=== PATIENT | male | born 1955 | race African-American/Black ===

== ENCOUNTER 2020-01-28 22:39 | Inpatient (IN) ==
[2020-01-28] MEDS ORDERED: ALBUT/IPRATROP 3MG/0.5MG NEB 3 ML VIAL NEB STA (22:44)
--- NOTE | 2020-01-28 23:05 | Emergency Department Note ---
History of Present Illness General Chief complaint: Shortness of Breath/Dyspnea History of Present Illness Maximum Pain Intensity: 0 This 64 yo presents to the ER complaining of shortness of breath Location: Chest Quality: Hard to breathe Severity: Moderate Duration: Tonight Timing: Tonight Context: Patient was concerned and summoned the guards Modifying factors: better with rest; worse with activity Patient does smoke. He is a diabetic. No prior history of blood clot, CHF or heart attack. Patient denies increasing leg pain or swelling, chest pain, fever, chills, flulike illness, abdominal pain, vomiting, diarrhea. Patient's blood sugar was low with the present and EMS gave glucose and dextrose. Home Medications Home Medications Medication Instructions Recorded Confirmed Type Humulin 70/30 U-100 Insulin 25 unit SUBCUT QPM 03/30/19 01/28/20 History Humulin 70/30 U-100 Insulin 34 unit SUBCUT QAM 03/30/19 01/28/20 History Humulin R Regular U-100 Insuln 1 sliding scale dose SUBCUT 03/30/19 01/28/20 History USEASDIRECTD aspirin 325 mg PO DAILY 03/30/19 01/28/20 History furosemide 80 mg PO DAILY 03/30/19 01/28/20 History losartan 100 mg PO DAILY 03/30/19 01/28/20 History metformin 1,000 mg PO BID 03/30/19 01/28/20 History metoprolol tartrate 100 mg PO BID 03/30/19 01/28/20 History potassium chloride 10 meq PO DAILY 03/30/19 01/28/20 History rosuvastatin 40 mg PO DAILY 03/30/19 01/28/20 History Allergies Allergy/AdvReac Type Severity Reaction Status Date / Time No Known Allergies Allergy Verified 01/28/20 23:23 Past Med/Surg History Medical History Diabetes mellitus, type 2 IDDM Hyperlipidemia Hypertension Obesity Surgical History Brain aneurysm REPAIR ()= NO FURTHER DETAILS Social History Current Living Situation: Other Current Living Situation Comment: [facility] Feels Safe at Home: Yes Smoking Status: Never smoker Cigarettes Per Day: 1.5 PPD X 45 YEARS ; Hx Substance Use: Yes ("20 YEARS AGO" PER PATIENT QUESTIONNAIRE= NO FURTHER DETAILS) Review of Systems A total of 10 systems reviewed and were otherwise negative Physical Exam Vital Signs Vital Signs - 24 hr 01/28/20 22:47 01/28/20 23:07 01/28/20 23:13 Temperature 36.8 C Temperature Source Oral Pulse Rate 58 L Pulse Rate [Apical] 57 L Pulse Rhythm [Apical] Pulse Strength [Apical] Respiratory Rate 18 24 Respiratory Effort / Characteristics Non-Labored Spontaneous Respiratory Depth Blood Pressure 135/94 Blood Pressure [Right Arm] Blood Pressure Mean 107 Blood Pressure Mean [Right Arm] Blood Pressure Position [Right Arm] Pulse Oximetry 88 L 95 92 Oxygen Delivery Method Room Air Nasal Cannula Room Air Nasal Cannula Oxygen Flow Rate 0 3 Sepsis Recent Fever Within 48 Hours No Sepsis New/Unexplained Change in Mental Status No Sepsis Action Taken by Nursing No Action Required Oxygen Flow Rate - Titration 3 Pulse Oximetry Post Tiitration 96 01/28/20 23:36 01/29/20 01:00 Temperature Temperature Source Pulse Rate Pulse Rate [Apical] 58 L 63 Pulse Rhythm [Apical] Regular Pulse Strength [Apical] Normal Respiratory Rate 22 18 Respiratory Effort / Characteristics Non-Labored Spontaneous Respiratory Depth Normal Blood Pressure Blood Pressure [Right Arm] 148/106 H 156/114 H Blood Pressure Mean Blood Pressure Mean [Right Arm] 120 128 Blood Pressure Position [Right Arm] Sitting Pulse Oximetry 97 96 Oxygen Delivery Method Nasal Cannula Nasal Cannula Oxygen Flow Rate 2 3 Sepsis Recent Fever Within 48 Hours Sepsis New/Unexplained Change in Mental Status Sepsis Action Taken by Nursing Oxygen Flow Rate - Titration Pulse Oximetry Post Tiitration VITALS: Vitals are noted on the nurse's note and reviewed by myself. Vital signs hypoxic at 88% on room air. GENERAL: -[place] male in [facility] having a hard time speaking in full sentences, well-nourished. SKIN: The skin was without rashes, erythema, or bruising. There is no tenting of the skin. Capillary reflex less than 2 seconds. HEAD: Normocephalic atraumatic. EARS: External auditory canals clear, tympanic membranes pearly duenas without erythema or effusion bilaterally. EYES: Pupils equal round and reactive to light and accommodation. Conjunctivae without injection, sclerae without icterus. Extraocular movements intact. NOSE: Patent, turbinates without inflammation or discharge. MOUTH: Mucous membranes moist. Pharynx without erythema or exudate. Uvula midline. Airway patent. Tongue does not deviate. NECK: Supple without nuchal rigidity. No lymphadenopathy. No thyromegaly. Cervical spine is nontender. No JVD. HEART: Regular rate and rhythm LUNGS: Mild diffuse end expiratory wheeze. No retractions or accessory muscle use. ABDOMEN: Positive bowel sounds x 4. Normal tympanic percussion. Soft, nontender, without masses or organomegaly. Govea sign negative. No guarding or rebound tenderness. No CVA tenderness MUSCULOSKELETAL: No muscle atrophy, erythema, noted. +2 pitting edema bilaterally up to the mid tib-fib. NEURO: Patient was alert and oriented to person place and time. Normal sensation to light and sharp touch. No focal neurological deficits. Course Administered Medications Heparin Sodium/Dextrose (Heparin Sodium/Dextrose) 25,000 units in 500 mls @ 34 mls/hr IV [id number]; Protocol Stop: 02/27/20 23:44 Last Admin: 01/29/20 00:03 Dose: 1,700 units/hr, 34 mls/hr Documented by: [id number] Cosigned by: [id number] Ioversol (Optiray 320 125ml) 125 ml IV ONCE PRN PRN Reason: Interaction Checking Stop: 02/01/20 23:33 Last Admin: 01/28/20 23:34 Dose: 118 ml Documented by: [id number] Discontinued Medications Albuterol (Duoneb) 3 ml NEB NOW STA Stop: 01/28/20 22:45 Last Admin: 01/28/20 23:04 Dose: 3 ml Documented by: [id number] Dextrose (Dextrose 50%) Confirm Administered Dose 50 ml IV .STK-MED ONE Stop: 01/29/20 01:10 Last Admin: 01/29/20 01:17 Dose: 50 ml Documented by: [id number] Dextrose (Dextrose 50%) Confirm Administered Dose 50 ml IV .STK-MED ONE Stop: 01/29/20 01:12 Last Admin: 01/29/20 01:17 Dose: Not Given Documented by: [id number] Heparin Sodium (Porcine) (Heparin Iv Bolus) Confirm Administered Dose 10,000 units .ROUTE .STK-MED ONE Stop: 01/29/20 00:00 Last Admin: 01/29/20 00:03 Dose: 7,000 units Documented by: [id number] Cosigned by: [id number] Heparin Sodium/Dextrose () 1 ea IV NOW STA; Protocol Stop: 01/28/20 23:50 Last Admin: 01/29/20 00:08 Dose: Not Given Documented by: [id number] Sodium Chloride (Nss 1000ml) 500 mls @ 999 mls/hr IV .Q31M ONE Stop: 01/28/20 23:54 Last Admin: 01/28/20 23:51 Dose: Not Given Documented by: [id number] Critical Care Time Critical Care Time: Yes Total Critical Care Time: 35 I have personally spent 35 minutes of critical care time in the direct management of this patient. This includes bedside care, interpretation of diagnostic studies, and testing, discussion with consultants, patient, and family members, and other required patient management activities. This 35 minutes is in excess of all separately billable procedures. Medical Decision Making Medical Records Attestation: I reviewed the patient's medical records. Home Medications Current Medication List: was personally reviewed by me Laboratory Data Attestation: I reviewed the patient's lab results. Result diagrams: 01/28/20 23:00 01/28/20 23:15 Lab Results 01/28/20 01/28/20 01/28/20 Range/Units 22:44 23:00 23:00 WBC 6.46 (4.8-10.8) K/uL RBC 6.56 H (4.7-6.1) M/uL Hgb 14.1 (14.0-18.0) g/dL POC Hgb (14.0-18.0) g/dl Hct 46.2 (42-52) % POC Hct (42-52) % MCV 70.4 L (80-100) fL MCH 21.5 L (25-34) pg MCHC 30.5 L (32-36) g/dL RDW Std Deviation 42.5 (36.4-46.3) fL RDW Coeff of Malina 17.5 H (11.5-14.5) % Plt Count 217 (130-400) K/uL MPV 10.0 (7.4-10.4) fL Immature Gran % (Auto) 0.2 % Neut % (Auto) 68.1 % Lymph % (Auto) 24.8 % [place] % (Auto) 4.8 % Eos % (Auto) 1.5 % Baso % (Auto) 0.6 % Immature Gran # (Auto) 0.01 (0.00-0.02) K/uL Neut # (Auto) 4.40 (1.4-6.5) K/uL Lymph # (Auto) 1.60 (1.2-3.4) K/uL [place] # (Auto) 0.31 (0.11-0.59) K/uL Eos # (Auto) 0.10 (0-0.5) K/uL Baso # (Auto) 0.04 (0-0.2) K/uL Hypochromasia Present PT Cancelled INR Cancelled APTT Cancelled PTT Ratio Cancelled ABG pH (7.35-7.45) ABG pCO2 (35-46) mmHg ABG pO2 (80-95) mmHg ABG HCO3 (19-24) mmol/L ABG O2 Saturation (90-95) % ABG Base Excess (-9-1.8) mEq/L Kian Test (Pos) Barometric Pressure mm/Hg Oxygen Given POC Sodium (135-144) mmol/L Sodium (136-145) mmol/L POC Potassium (3.3-5.0) mmol/L Potassium (3.5-5.1) mmol/L POC Chloride (101-112) mmol/L Chloride (98-107) mmol/L Carbon Dioxide (21-32) mmol/L POC Total CO2 (24-31) mEq/l Anion Gap (3-11) POC Anion Gap (16-25) mmol/L POC BUN (7-18) mg/dl BUN (7-18) mg/dl Creatinine (0.6-1.4) mg/dl POC Creatinine (0.6-1.3) mg/dl Est Cr Clr Drug Dosing ml/min Est GFR ( Amer) Est GFR (Non-Af Amer) BUN/Creatinine Ratio (10-20) Glucose (70-99) mg/dl POC Glucose 73 (70-99) mg/dl POC Glucose (other) (70-99) mg/dl Calcium (8.5-10.1) mg/dl POC Ioniz Calcium Kvng (1.12-1.32) mmol/l Magnesium (1.8-2.4) mg/dl Total Bilirubin (0.2-1) mg/dl AST (15-37) U/L ALT (12-78) U/L Alkaline Phosphatase (45-117) U/L POC Troponin I (0-0.045) ng/ml Troponin I (0-0.045) ng/ml Total Protein (6.4-8.2) gm/dl Albumin (3.4-5.0) gm/dl Globulin (2.5-4.0) gm/dl Albumin/Globulin Ratio (0.9-2) Urine Color Urine Appearance (Clear) Urine pH (4.5-7.5) Ur Specific [place] (1.000-1.030) Urine Protein (Negative) Urine Glucose (UA) (Negative) Urine Ketones (Negative) Urine Blood (Negative) Urine Nitrite (Negative) Urine Bilirubin (Negative) Urine Urobilinogen (Negative) Ur Leukocyte Esterase (Negative) Urine WBC (Auto) (0-5) /hpf Urine RBC (Auto) (0-4) /hpf U Hyaline Cast (Auto) (0-5) /lpf U Epithel Cells (Auto) (0-5) /lpf Urine Bacteria (Auto) (Negative) 01/28/20 01/28/20 01/28/20 Range/Units 23:14 23:14 23:14 WBC (4.8-10.8) K/uL RBC (4.7-6.1) M/uL Hgb (14.0-18.0) g/dL POC Hgb 17.0 (14.0-18.0) g/dl Hct (42-52) % POC Hct 50 (42-52) % MCV (80-100) fL MCH (25-34) pg MCHC (32-36) g/dL RDW Std Deviation (36.4-46.3) fL RDW Coeff of Malina (11.5-14.5) % Plt Count (130-400) K/uL MPV (7.4-10.4) fL Immature Gran % (Auto) % Neut % (Auto) % Lymph % (Auto) % [place] % (Auto) % Eos % (Auto) % Baso % (Auto) % Immature Gran # (Auto) (0.00-0.02) K/uL Neut # (Auto) (1.4-6.5) K/uL Lymph # (Auto) (1.2-3.4) K/uL [place] # (Auto) (0.11-0.59) K/uL Eos # (Auto) (0-0.5) K/uL Baso # (Auto) (0-0.2) K/uL Hypochromasia PT INR APTT PTT Ratio ABG pH 7.41 (7.35-7.45) ABG pCO2 39 (35-46) mmHg ABG pO2 220 H (80-95) mmHg ABG HCO3 24 (19-24) mmol/L ABG O2 Saturation 99.6 H (90-95) % ABG Base Excess -0.6 (-9-1.8) mEq/L Kian Test POS (Pos) Barometric Pressure 737.1 mm/Hg Oxygen Given ROOM AIR POC Sodium 141 (135-144) mmol/L Sodium (136-145) mmol/L POC Potassium 3.8 (3.3-5.0) mmol/L Potassium (3.5-5.1) mmol/L POC Chloride 112 (101-112) mmol/L Chloride (98-107) mmol/L Carbon Dioxide (21-32) mmol/L POC Total CO2 21 L (24-31) mEq/l Anion Gap (3-11) POC Anion Gap 13.0 L (16-25) mmol/L POC BUN 24 H (7-18) mg/dl BUN (7-18) mg/dl Creatinine (0.6-1.4) mg/dl POC Creatinine 1.7 H (0.6-1.3) mg/dl Est Cr Clr Drug Dosing ml/min Est GFR ( Amer) Est GFR (Non-Af Amer) BUN/Creatinine Ratio (10-20) Glucose (70-99) mg/dl POC Glucose (70-99) mg/dl POC Glucose (other) 110 H (70-99) mg/dl Calcium (8.5-10.1) mg/dl POC Ioniz Calcium Kvng 0.87 L (1.12-1.32) mmol/l Magnesium (1.8-2.4) mg/dl Total Bilirubin (0.2-1) mg/dl AST (15-37) U/L ALT (12-78) U/L Alkaline Phosphatase (45-117) U/L POC Troponin I 0.24 H (0-0.045) ng/ml Troponin I (0-0.045) ng/ml Total Protein (6.4-8.2) gm/dl Albumin (3.4-5.0) gm/dl Globulin (2.5-4.0) gm/dl Albumin/Globulin Ratio (0.9-2) Urine Color Urine Appearance (Clear) Urine pH (4.5-7.5) Ur Specific [place] (1.000-1.030) Urine Protein (Negative) Urine Glucose (UA) (Negative) Urine Ketones (Negative) Urine Blood (Negative) Urine Nitrite (Negative) Urine Bilirubin (Negative) Urine Urobilinogen (Negative) Ur Leukocyte Esterase (Negative) Urine WBC (Auto) (0-5) /hpf Urine RBC (Auto) (0-4) /hpf U Hyaline Cast (Auto) (0-5) /lpf U Epithel Cells (Auto) (0-5) /lpf Urine Bacteria (Auto) (Negative) 01/28/20 01/29/20 01/29/20 Range/Units 23:15 00:00 00:10 WBC (4.8-10.8) K/uL RBC (4.7-6.1) M/uL Hgb (14.0-18.0) g/dL POC Hgb (14.0-18.0) g/dl Hct (42-52) % POC Hct (42-52) % MCV (80-100) fL MCH (25-34) pg MCHC (32-36) g/dL RDW Std Deviation (36.4-46.3) fL RDW Coeff of Malina (11.5-14.5) % Plt Count (130-400) K/uL MPV (7.4-10.4) fL Immature Gran % (Auto) % Neut % (Auto) % Lymph % (Auto) % [place] % (Auto) % Eos % (Auto) % Baso % (Auto) % Immature Gran # (Auto) (0.00-0.02) K/uL Neut # (Auto) (1.4-6.5) K/uL Lymph # (Auto) (1.2-3.4) K/uL [place] # (Auto) (0.11-0.59) K/uL Eos # (Auto) (0-0.5) K/uL Baso # (Auto) (0-0.2) K/uL Hypochromasia PT 12.1 H INR 1.2 H APTT 28.7 PTT Ratio 1.0 ABG pH (7.35-7.45) ABG pCO2 (35-46) mmHg ABG pO2 (80-95) mmHg ABG HCO3 (19-24) mmol/L ABG O2 Saturation (90-95) % ABG Base Excess (-9-1.8) mEq/L Kian Test (Pos) Barometric Pressure mm/Hg Oxygen Given POC Sodium (135-144) mmol/L Sodium 141 (136-145) mmol/L POC Potassium (3.3-5.0) mmol/L Potassium 3.5 (3.5-5.1) mmol/L POC Chloride (101-112) mmol/L Chloride 112 H (98-107) mmol/L Carbon Dioxide 25 (21-32) mmol/L POC Total CO2 (24-31) mEq/l Anion Gap 4.0 (3-11) POC Anion Gap (16-25) mmol/L POC BUN (7-18) mg/dl BUN 22 H (7-18) mg/dl Creatinine 1.67 H (0.6-1.4) mg/dl POC Creatinine (0.6-1.3) mg/dl Est Cr Clr Drug Dosing 60.7 ml/min Est GFR ( Amer) 50.1 Est GFR (Non-Af Amer) 43.2 BUN/Creatinine Ratio 13.1 (10-20) Glucose 154 H (70-99) mg/dl POC Glucose (70-99) mg/dl POC Glucose (other) (70-99) mg/dl Calcium 8.2 L (8.5-10.1) mg/dl POC Ioniz Calcium Kvng (1.12-1.32) mmol/l Magnesium 2.0 (1.8-2.4) mg/dl Total Bilirubin 0.5 (0.2-1) mg/dl AST 74 H (15-37) U/L ALT 74 (12-78) U/L Alkaline Phosphatase 83 (45-117) U/L POC Troponin I (0-0.045) ng/ml Troponin I 0.285 H* (0-0.045) ng/ml Total Protein 7.0 (6.4-8.2) gm/dl Albumin 2.8 L (3.4-5.0) gm/dl Globulin 4.2 H (2.5-4.0) gm/dl Albumin/Globulin Ratio 0.7 L (0.9-2) Urine Color Yellow Urine Appearance Clear (Clear) Urine pH 5.0 (4.5-7.5) Ur Specific [place] 1.020 (1.000-1.030) Urine Protein 1+ H (Negative) Urine Glucose (UA) Negative (Negative) Urine Ketones Negative (Negative) Urine Blood Negative (Negative) Urine Nitrite Negative (Negative) Urine Bilirubin Negative (Negative) Urine Urobilinogen Negative (Negative) Ur Leukocyte Esterase Negative (Negative) Urine WBC (Auto) 1-5 (0-5) /hpf Urine RBC (Auto) 0-4 (0-4) /hpf U Hyaline Cast (Auto) 1-5 (0-5) /lpf U Epithel Cells (Auto) 5-10 H (0-5) /lpf Urine Bacteria (Auto) Negative (Negative) 01/29/20 Range/Units 01:06 WBC (4.8-10.8) K/uL RBC (4.7-6.1) M/uL Hgb (14.0-18.0) g/dL POC Hgb (14.0-18.0) g/dl Hct (42-52) % POC Hct (42-52) % MCV (80-100) fL MCH (25-34) pg MCHC (32-36) g/dL RDW Std Deviation (36.4-46.3) fL RDW Coeff of Malina (11.5-14.5) % Plt Count (130-400) K/uL MPV (7.4-10.4) fL Immature Gran % (Auto) % Neut % (Auto) % Lymph % (Auto) % [place] % (Auto) % Eos % (Auto) % Baso % (Auto) % Immature Gran # (Auto) (0.00-0.02) K/uL Neut # (Auto) (1.4-6.5) K/uL Lymph # (Auto) (1.2-3.4) K/uL [place] # (Auto) (0.11-0.59) K/uL Eos # (Auto) (0-0.5) K/uL Baso # (Auto) (0-0.2) K/uL Hypochromasia PT INR APTT PTT Ratio ABG pH (7.35-7.45) ABG pCO2 (35-46) mmHg ABG pO2 (80-95) mmHg ABG HCO3 (19-24) mmol/L ABG O2 Saturation (90-95) % ABG Base Excess (-9-1.8) mEq/L Kian Test (Pos) Barometric Pressure mm/Hg Oxygen Given POC Sodium (135-144) mmol/L Sodium (136-145) mmol/L POC Potassium (3.3-5.0) mmol/L Potassium (3.5-5.1) mmol/L POC Chloride (101-112) mmol/L Chloride (98-107) mmol/L Carbon Dioxide (21-32) mmol/L POC Total CO2 (24-31) mEq/l Anion Gap (3-11) POC Anion Gap (16-25) mmol/L POC BUN (7-18) mg/dl BUN (7-18) mg/dl Creatinine (0.6-1.4) mg/dl POC Creatinine (0.6-1.3) mg/dl Est Cr Clr Drug Dosing ml/min Est GFR ( Amer) Est GFR (Non-Af Amer) BUN/Creatinine Ratio (10-20) Glucose (70-99) mg/dl POC Glucose 63 L* (70-99) mg/dl POC Glucose (other) (70-99) mg/dl Calcium (8.5-10.1) mg/dl POC Ioniz Calcium Kvng (1.12-1.32) mmol/l Magnesium (1.8-2.4) mg/dl Total Bilirubin (0.2-1) mg/dl AST (15-37) U/L ALT (12-78) U/L Alkaline Phosphatase (45-117) U/L POC Troponin I (0-0.045) ng/ml Troponin I (0-0.045) ng/ml Total Protein (6.4-8.2) gm/dl Albumin (3.4-5.0) gm/dl Globulin (2.5-4.0) gm/dl Albumin/Globulin Ratio (0.9-2) Urine Color Urine Appearance (Clear) Urine pH (4.5-7.5) Ur Specific [place] (1.000-1.030) Urine Protein (Negative) Urine Glucose (UA) (Negative) Urine Ketones (Negative) Urine Blood (Negative) Urine Nitrite (Negative) Urine Bilirubin (Negative) Urine Urobilinogen (Negative) Ur Leukocyte Esterase (Negative) Urine WBC (Auto) (0-5) /hpf Urine RBC (Auto) (0-4) /hpf U Hyaline Cast (Auto) (0-5) /lpf U Epithel Cells (Auto) (0-5) /lpf Urine Bacteria (Auto) (Negative) Imaging Data Attestation: I personally reviewed and interpreted this imaging study as follows: Blood Pressure Blood Pressure Findings: Normal blood pressure MDM Narrative Prior records/ancillary studies reviewed. Triage Nursing notes reviewed. Additional history obtained from the EMS. The patient's history was concerning for respiratory difficulties. Differential diagnosis: Etiologies such as infections, reactive airway disease, pneumonia, pneumothorax, COPD, CHF, cardiac ischemia, pulmonary embolism, musculoskeletal, gastrointestinal, as well as others were entertained. Physical examination: As above. ER treatment provided: An order was placed for continuous cardiac monitoring. The monitor shows a rate of 50-100 with a normal sinus rhythm. Nebulizer On reassessment the patient felt better. Diagnostic interpretation by me: The electrocardiogram was normal sinus, T waves in the anterior lateral leads, rate of 55. Impression sinus bradycardia T wave inversions interpreted by myself EKG ordered for dyspnea I think arrhythmia is unlikely. EKG shows normal sinus rhythm with no interval abnormalities such as QT prolongation or WPW. There are no findings to suggest Brugada syndrome. Cardiac monitoring in the emergency department reveals no tachycardic or bradycardic dysrhythmia. Hypertrophic cardiomyopathy was considered but there are no clear historical elements pointing toward this. EKG is not suggestive. The QRS voltage is not extremely large and there are no suggestive Q waves. Repeat EKG is unchanged. The labs revealed elevated troponin. Hyperglycemia w/o DKA Imaging studies: CTA CHEST: There are branching filling defects in the subsegmental branches of the right lower lobe and right middle lobe consistent with pulmonary emboli. No right heart strain. Patchy groundglass opacity in the right lower lobe could be related to partial compressive/ dependent atelectasis. Pulmonary infarct is thought to be less likely but not excluded. Linear discoid atelectasis in the left lower lobe and lingula. Moderate right and small left pleural effusions. Cardiomegaly. Reflux of contrast into the IVC and hepatic veins suggest right-sided heart failure/dysfunction. Evaluation of the aorta is limited due to suboptimal opacification. Radiologist: Joesph Moore MD Consultation: A consultation was placed with Dr. Villarreal, hospitalist. The case was discussed and diagnostics were reviewed. The patient was evaluated in the ER for further treatment. This appears to be consistent with PE with heart failure and COPD exacerbation. Positive troponin and repeat EKG is unchanged. Patient has diffuse T wave inversions. This is new. He has no chest pain. Patient felt much better to the nebulizer. He was started on heparin. Hypercoagulable work-up was ordered. Medicine was consulted. Patient is agreeable to treatment plan of admission. By the evaluation outlined above emergent etiologies such as reactive airway disease, pneumonia, pneumothorax, musculoskeletal, serious bacterial infections, as well as others were deemed relatively unlikely. The pt informed about the findings as listed above. All questions were answered and pleased with the treatment. The chart was completed utilizing [employer] Speech voice recognition software. Grammatical errors, random word insertions, pronoun errors, and incomplete sentences are an occassional consequence of this system due to software limitations, ambient noise, and hardware issues. Any formal questions or concerns about the content, text, or information contained within the body of this dictation should be directly addressed to the physician emergency medicine physician assistant for clarification. Impression & Plan Pulmonary embolism, Acute exacerbation of chronic obstructive airways disease, Congestive heart failure Discharge Plan Visit Data Chief Complaint: Shortness of Breath/Dyspnea ED Provider: Jillian Villa ED Midlevel Provider: Toshia Hoffman Discharge Problem: Pulmonary embolism, Acute exacerbation of chronic obstructive airways disease, Congestive heart failure Patient Disposition: Admitted As Inpatient Condition: Fair Forms Stand Alone Forms: [employer] Prescriptions Prescriptions: No Action aspirin 325 mg Tablet 325 mg PO DAILY RF: 0 metoprolol tartrate 100 mg Tablet 100 mg PO BID RF: 0 Humulin 70/30 U-100 Insulin 100 unit/mL (70-30) Suspension 34 unit SUBCUT QAM RF: 0 Humulin 70/30 U-100 Insulin 100 unit/mL (70-30) Suspension 25 unit SUBCUT QPM RF: 0 potassium chloride 10 mEq Tablet Extended Release 10 meq PO DAILY RF: 0 furosemide 80 mg Tablet 80 mg PO DAILY RF: 0 metformin 1,000 mg Tablet 1,000 mg PO BID RF: 0 Humulin R Regular U-100 Insuln 100 unit/mL Solution 1 sliding scale dose SUBCUT USEASDIRECTD RF: 0 losartan 100 mg Tablet 100 mg PO DAILY RF: 0 rosuvastatin 40 mg Tablet 40 mg PO DAILY RF: 0 Referrals Referrals: Samantha ROMERO [Primary Care Provider] - Discharge Problem: Pulmonary embolism Qualifiers: Pulmonary embolism type: unspecified Chronicity: acute Acute cor pulmonale presence: without acute cor pulmonale Qualified Code(s): I26.99 - Other pulmonary embolism without acute cor pulmonale
[2020-01-28 23:08] LABS: Basophils # (auto) 0.04 K/uL (0-0.2); Basophils % (auto) 0.6 %; Eosinophils % (auto) 1.5 %; Hematocrit (blood only) 46.2 % (42-52); Hemoglobin 14.1 g/dL (14.0-18.0); Immature Granulocytes # (auto) 0.01 K/uL (0.00-0.02); Immature Granulocytes % (auto) 0.2 %; Lymphocytes % (auto) 24.8 %; Mean Corpuscular Hemoglobin 21.5 pg (25-34); Mean Corpuscular Hgb Conc 30.5 g/dL (32-36); Mean Corpuscular Volume 70.4 fL (80-100); Monocytes # (auto) 0.31 K/uL (0.11-0.59); Monocytes % (auto) 4.8 %; Neutrophils % (auto) 68.1 %; Platelet Count 217 K/uL (130-400); RDW Coefficient of Variation 17.5 % (11.5-14.5); RDW Standard Deviation 42.5 fL (36.4-46.3); Red Blood Count 6.56 M/uL (4.7-6.1); White Blood Count 6.46 K/uL (4.8-10.8)
[2020-01-28] MEDS ORDERED: SODIUM CHLORIDE 0.9% 1000ML 500 ML IV ONE (23:24)
[2020-01-28 23:25] LABS: Base Excess ABG -0.6 mEq/L (-9-1.8); HCO3 ABG 24 mmol/L (19-24); Oxygen Saturation ABG 99.6 % (90-95); PCO2 ABG 39 mmHg (35-46); PO2 ABG 220 mmHg (80-95); pH ABG 7.41 (7.35-7.45)
[2020-01-28 23:26] LABS: Allen Test POS (Pos)
[2020-01-28 23:27] LABS: iSTAT Creatinine 1.7 mg/dl (0.6-1.3); iSTAT Ionized Calcium 0.87 mmol/l (1.12-1.32); iSTAT Potassium 3.8 mmol/L (3.3-5.0)
[2020-01-28] MEDS ORDERED: OPTIRAY 320 125ml IV PRN (23:34)
[2020-01-28 23:39] LABS: Hypochromasia Present
[2020-01-28] MEDS ORDERED: HEPARIN SODIUM/DEXTROSE 25,000 UNITS/500 ML BAG IV SCH (23:45)
[2020-01-28 23:50] LABS: Albumin Level 2.8 gm/dl (3.4-5.0); BUN Creatinine Ratio 13.1 (10-20); Calcium 8.2 mg/dl (8.5-10.1); Creatinine Clr Calc Pharmacy 60.7 ml/min; Est GFR (African American) 50.1; Est GFR (Non-African American) 43.2; Potassium 3.5 mmol/L (3.5-5.1)
[2020-01-28 23:58] LABS: Albumin Globulin Ratio 0.7 (0.9-2); Bilirubin,Total 0.5 mg/dl (0.2-1); Globulin 4.2 gm/dl (2.5-4.0); Troponin I 0.285 ng/ml (0-0.045)
[2020-01-28] MEDS ORDERED: HEPARIN SOD (PORCINE) 1000 UNIT/ML 10 ML VIAL ONE (23:59)
[2020-01-29 00:24] LABS: Appearance Urine Clear (Clear); Bacteria Urine Automated Negative (Negative); Bilirubin Urine Negative (Negative); Blood Urine Negative (Negative); Color Urine Yellow; Glucose Urine UA Negative (Negative); Ketones Urine Negative (Negative); Leukocyte Esterase Urine Negative (Negative); Nitrite Urine Negative (Negative); Protein Urine 1+ (Negative); RBC Urine Automated 0-4 /hpf (0-4); Urobilinogen Urine Negative (Negative)
[2020-01-29 00:26] LABS: INR 1.2 (0.9-1.1); Partial Thromboplastin Time 28.7 Seconds (21.0-31.0); Prothrombin Time 12.1 Seconds (9.0-12.0)
[2020-01-29] MEDS ORDERED: DEXTROSE 50% 50 ML SYRINGE IV ONE ×2 (01:09→01:11)
--- NOTE | 2020-01-29 01:28 | History & Physical Report ---
Date of Service January 29, 2020 Assessment & Plan (1) Pulmonary embolism: Mr. Edmond is a 64 yo M prisoner with multiple cardiovascular risk factors presenting with sudden onset SOB, found to have multiple pulmonary emboli and evidence of right heart failure on CT scan. - Right middle and lower lobe emboli visualized on Chest CTA - baseline PT 12.1, INR 1.2 - standard heparin drip with bolus initiated in ED - BP stable at 148/106, oxygen saturation 96 on 3L via NC; no indication for th rombolytics - hypercoagulable panel ordered by ED provider - bilateral lower extremity venous duplex ordered to assess further clot burden - risk factors include tobacco abuse history and obesity; no prolonged immobility, no known cancer - patient would benefit from routine cancer screenings (2) NSTEMI (non-ST elevated myocardial infarction): - troponin elevated to 0.285; serial level ordered - EKG showing inferior and anterolateral T wave inversions, concerning for ischemia - no prominent R wave visualized in V1, which would would be indicative of posterior wall infarction - continue shelter monitor - CLAUDIA ordered - cardiology consult placed (3) Elevated troponin: - troponin elevated to 0.285; serial level ordered - likely due to heart strain in the setting of acute pulmonary embolism (4) Congestive heart failure: - patient is volume overloaded on exam - Chest CT showing cardiomegaly with moderate R pleural effusion and small L pleural effusion. Reflux of contrast into IVF and hepatic veins was also observed - findings suggestive of Right sided heart failure - incomplete R bundle branch block demonstrated on EKG, potentially indicative of RV dilation - home medication regimen consists of losartan 100mg, Metoprolol Tartrate 100mg BID, Furosemide 80mg daily - holding losartan in setting of elevated creatinine - reducing metoprolol dose by half due to bradycardia - nitropaste ordered to reduce preload and afterload - due to volume overload, administered IV Lasix-Albumin combination. Albumin was added with lasix as patient is at risk for RV ID, in which intravascular fluid would be advantageous - CBC, CMP and Mag ordered as AM labs - TTE ordered as above (5) SOB (shortness of breath): - etiology multifactorial: pulmonary emboli and CHF exacerbation - given tobacco abuse, patient have have undiagnosed COPD given wheezing on exam and improvement with nebulizer - may benefit from formal PFTs as an outpatient - additional treatment as above (6) Elevated serum creatinine: - level at 1.67 on admission, baseline ~1.2 - BUN at 22 - suspect etiology is pre-renal due to poor perfusion in the setting of CHF - hold home losartan until Cr begins to decline - CMP ordered in AM (7) Hypoglycemia: - patient was reported to be hypoglycemic in EMS and required glucose and dextrose administration - BG on arrival to ED was 100, but later dropped to 65 - Dextrose 50ml administered - consider glucagon vs. D50W if sugars drop again - holding home insulin and metformin - etiology of hypoglycemia is unknown and limited by history: patient denies missing meals, suspect improper insulin administration (8) Elevated AST (SGOT): - AST elevated to 74 on admission - etiology unknown - given risk factor of incarceration, will order acute hepatitis panel - avoid hepatotoxic agents (9) HTN (hypertension): - BP currently at 148/106 - patient on losartan 100mg and metoprolol tartrate 100mg BID - hold home losartan in the setting of elevated creatinine - we will reduce metoprolol dose to 50mg BID due to bradycardia (10) HLD (hyperlipidemia): - continue home statin and ASA 325mg (11) Type 2 diabetes mellitus: - home regimen consists of Metformin 1,000mg BID, Humalog Insulin 70/30 34 units qAM with sliding scale - given episode of hypoglycemia, we will hold all anti-glycemics at this time Code Status: DNR/DNI FEN/GI: Heart Healthy, DMII diet DVT ppx: patient on Heparin Drip Dispo: PCU/Tele History of Present Illness Primary Care Provider: HEATHER Singh Mr. Edmond is a 64 yo male prisoner with a PMHx of CHF, HTN, HLD, significant tobacco abuse, insulin-dependent diabetes mellitus, and obesity who was brought in for evaluation of shortness of breath. While watching television at 9:15pm, Mr. Edmond developed sudden onset SOB. His breathing worsened with ambulation. He denies associated malaise, cough, fever or chest pain. He denies a history of progressive dyspnea in the days preceding admission. He has no history of underlying lung disease. No history of blood clots. As for his tobacco abuse, he has smoked since age 18, as much as 2 packs per day, but quit 1 year ago. EMS report indicated patient's blood sugar was low (65); he was administered both glucose and dextrose on his ride to [facility]. Patient reports eating a normal dinner, including ice cream, denies any missed meals. ED Course: CBC normal. Electrolytes normal. Cr elevated to 1.67. UA normal. Albumin low at 2.8. AST elevated to 74, ALT normal. Troponin elevated to 0.285. PT 12.1. INR 1.2. ABG normal. Hypercoagulable panel ordered. EKG sinus bradycardia at 55 bpm with prolonged QT interval; repeat study showed new inferior and anterolateral ST segment changes and T wave inversions. Chest CTA showing filling defects in Right lower and middle lobes consistent with pulmonary emboli, without infarction; cardiomegaly with moderate R pleural effusion and small L pleural effusion. Reflux of contrast into IVF and hepatic veins was observed. He was given a nebulizer treatment, which resulted in improvement in his SOB. He was placed on shelter monitor and started on a standard heparin drip with bolus. Allergies Allergy/AdvReac Type Severity Reaction Status Date / Time No Known Allergies Allergy Verified 01/28/20 23:23 Home Medications Home Medications Medication Instructions Recorded Confirmed Type Humulin 70/30 U-100 Insulin 25 unit SUBCUT QPM 03/30/19 01/28/20 History Humulin 70/30 U-100 Insulin 34 unit SUBCUT QAM 03/30/19 01/28/20 History Humulin R Regular U-100 Insuln 1 sliding scale dose SUBCUT 03/30/19 01/28/20 History USEASDIRECTD aspirin 325 mg PO DAILY 03/30/19 01/28/20 History furosemide 80 mg PO DAILY 03/30/19 01/28/20 History losartan 100 mg PO DAILY 03/30/19 01/28/20 History metformin 1,000 mg PO BID 03/30/19 01/28/20 History metoprolol tartrate 100 mg PO BID 03/30/19 01/28/20 History potassium chloride 10 meq PO DAILY 03/30/19 01/28/20 History rosuvastatin 40 mg PO DAILY 03/30/19 01/28/20 History Past Med/Surg History Medical History Diabetes mellitus, type 2 IDDM Hyperlipidemia Hypertension Obesity Surgical History Brain aneurysm REPAIR (1980'S)= NO FURTHER DETAILS Social History Preferred Language: Upper Sorbian Communication Ability: Effective Print Manager Required: No Beliefs That Will Affect Care: None Current Living Situation: Other Current Living Situation Comment: [facility] Feels Safe at Home: Yes Safety Concerns: Feels Safe At This Time Smoking Status: Former smoker Tobacco Type: cigarettes ; Cigarettes Per Day: 1.5 PPD X 45 YEARS ; Hx Alcohol Use: No Hx Substance Use: No Review of Systems Respiratory: + dyspnea Cardiovascular: + edema; no chest pain Physical Exam Constitutional: WD/WN, vitals as above + obese and cooperative Eyes: PERRL, conjunctivae normal, anicteric sclerae ENMT: external ear and nose normal, oropharynx normal Neck: normal visual inspection and trachea midline Respiratory: + labored breathing (belly breathing) Auscultation: + wheezes (end expiratory ); no crackles Cardiovascular: Rate/Rhythm: regular rate and regular rhythm Heart Sounds: normal S1, normal S2 and + murmur (systolic) Extremities: + pedal edema (+3 pitting edema to the bilateral thighs) Gastrointestinal (Abdomen): normal bowel sounds, soft, nontender, no hepatosplenomegaly Skin: no rashes, warm and dry Psychiatric: A+Ox3, euthymic affect Results & Data Results & Data ([facility]) Vital Signs (Past 12 Hours) Vital Signs Temp Pulse Pulse Resp BP BP Pulse Ox 01/29/20 01:00 63 18 156/114 H 96 01/28/20 23:36 58 L 22 148/106 H 97 01/28/20 23:13 92 01/28/20 23:07 57 L 24 95 01/28/20 22:47 36.8 C 58 L 18 135/94 88 L Code Status & VTE Plan VTE Prophylaxis Plan VTE Prophylaxis will be ordered: Yes Supervising Physician Co-Signing Physician Notes Attending addendum: I have physically seen this patient, have supervised the medical residents activities, and agree with the H&P unless as otherwise noted. Assessment and Plan: Right middle lobe and right lower lobe pulmonary emboli- Hypercoagulable work-up Heparin drip, standard concentration with bolus per protocol. Nasal cannula oxygen titrated to keep pulse ox 94 to 95%. Non-STEMI/abnormal EKG with inferior lateral ischemia- The patient will be admitted to telemetry for serial cardiac enzymes, serial EKG's, cardiac rhythm monitoring and a 2-D echocardiogram with Dopplers. Heparin drip as above. No suggestion of right heart strain on EKG. Right heart failure suggested with 3+-4+ pitting edema bilateral lower extremities. Single dose of albumin with Lasix to address fluid overload status Consult cardiology. Abnormal LFTs- Order acute hepatitis profile May be due to early hepatic congestion. Needs imaging to assess Acute kidney injury- Creatinine 1.67 with baseline Hold losartan. Diabetes mellitus/persistent hypoglycemia while in the ED and in route to the hospital. Question whether he may have had additional dose of insulin prior to arrival. Hypoglycemic protocol. May require D10 IV solution overnight. Holding 70/30 and metformin. Remainder of orders and notations as noted. Resident Activity Tracking Resident Involvement: Resident Care Provided Care Provided: Adult Hospital Medicine (1) Pulmonary embolism Acute cor pulmonale presence: without acute cor pulmonale Chronicity: acute Pulmonary embolism type: unspecified Qualified Code(s): I26.99 - Other pulmo nary embolism without acute cor pulmonale
[2020-01-29] MEDS ORDERED: GLUCAGON FOR INJ 1 MG VIAL IM PRN (02:45)
[2020-01-29] MEDS ORDERED: DEXTROSE 50% 50 ML SYRINGE IV PRN (02:45)
[2020-01-29] MEDS ORDERED: ALBUMIN 25% 50 ML with FUROSEMIDE 40 MG IV ONE (02:45)
[2020-01-29] MEDS ORDERED: GLUCOSE 10 TABS/TUBE PO PRN (02:45)
[2020-01-29] MEDS ORDERED: GLUCOSE 40% GEL 15 GM TUBE PO PRN (02:45)
[2020-01-29] MEDS ORDERED: CARBOHYDRATES FOR HYPOGLYCEMIA PO PRN (02:45)
--- NOTE | 2020-01-29 04:17 | Billing Data ---
Date of Service January 29, 2020 Coding Level of Care Code 89286 Initial Inpt Care Lvl 3
[2020-01-29] MEDS: NITROGLYCERIN 2% OINTMENT 30GM TUBE EXT SCH ×4 (04:21→20:48)
[2020-01-29 06:21] LABS: Basophils # (auto) 0.02 K/uL (0-0.2); Basophils % (auto) 0.4 %; Eosinophils % (auto) 1.8 %; Hematocrit (blood only) 44.3 % (42-52); Hemoglobin 13.9 g/dL (14.0-18.0); Lymphocytes # (auto) 1.91 K/uL (1.2-3.4); Lymphocytes % (auto) 34.2 %; Mean Corpuscular Hemoglobin 21.8 pg (25-34); Mean Corpuscular Hgb Conc 31.4 g/dL (32-36); Mean Corpuscular Volume 69.5 fL (80-100); Mean Platelet Volume 9.7 fL (7.4-10.4); Monocytes # (auto) 0.33 K/uL (0.11-0.59); Monocytes % (auto) 5.9 %; Neutrophils # (auto) 3.23 K/uL (1.4-6.5); Neutrophils % (auto) 57.7 %; Platelet Count 216 K/uL (130-400); RDW Standard Deviation 41.7 fL (36.4-46.3); Red Blood Count 6.37 M/uL (4.7-6.1); White Blood Count 5.59 K/uL (4.8-10.8)
[2020-01-29] MEDS ORDERED: PERFLUTREN LIPID MICROSPHERE (DEFINITY) IV ONE (06:38)
--- NOTE | 2020-01-29 06:50 | Ultrasound Report ---
BILATERAL LOWER EXTREMITY VENOUS DOPPLER HISTORY: Acute shortness of breath with pulmonary emboli pulmonary emboli COMPARISON STUDY: CTA of the chest 01/28/2020. FINDINGS: There is normal compressibility, flow, and augmentation within the bilateral lower extremit y deep venous systems. The calf veins are suboptimally visualized secondary to subcutaneous edema. Sh ort segment fusiform dilation of the right popliteal artery measures up to 2.0 cm. IMPRESSION: No DVT within the right or left lower extremity. ACT 112: Negative or not required by law. Electronically signed by: Harry Gonzales M.D. 01/29/2020 6:48 AM
[2020-01-29 06:57] LABS: Microcytosis Present; Target Cells 1+; Toxic Vacuolation 1+
[2020-01-29 07:00] LABS: Albumin Level 2.8 gm/dl (3.4-5.0); BUN Creatinine Ratio 12.6 (10-20); Calcium 8.4 mg/dl (8.5-10.1); Creatinine Clr Calc Pharmacy 62.5 ml/min; Est GFR (African American) 51.6; Est GFR (Non-African American) 44.5; Potassium 3.3 mmol/L (3.5-5.1)
[2020-01-29 07:13] LABS: Albumin Globulin Ratio 0.7 (0.9-2); Bilirubin,Total 0.7 mg/dl (0.2-1); Globulin 3.8 gm/dl (2.5-4.0); Total Protein 6.6 gm/dl (6.4-8.2); Troponin I 0.261 ng/ml (0-0.045)
[2020-01-29] MEDS: POTASSIUM CHLORIDE 10 MEQ TABCR PO SCH (08:32)
[2020-01-29] MEDS: ROSUVASTATIN CALCIUM 20 MG TAB PO SCH (08:32)
[2020-01-29] MEDS: METOPROLOL TARTRATE 50 MG TAB PO SCH ×2 (08:32→20:31)
[2020-01-29] MEDS: ASPIRIN 325 MG ECTAB PO SCH (08:33)
--- NOTE | 2020-01-29 08:39 | CT Scan Report ---
CT angio chest PE protocol CT DOSE: 661.10 mGy.cm HISTORY: 64 years-old Male with Dyspnea. Acute shortness of breath with hypoglycemia TECHNIQUE: Multiple CTA images of the chest were obtained after the intravenous administration of 118 ml Optiray 320. Coronal and sagittal MIPS were obtained from the axial data set and were submitted for review. All measurements were obtained according to NASCET criteria. A dose lowering technique w as utilized adhering to the principles of ALARA. COMPARISON: Duplex venous Doppler study of same day FINDINGS: Respiratory motion study is mildly limits the study. CTA: Moderate to marked cardiomegaly with trace pericardial effusion. The left heart structures are not op acified and therefore difficult to evaluate. No aortic aneurysm identified. There is reflux of contra st into the IVC and hepatic veins. There is suboptimal evaluation of the pulmonary arterial tree seco ndary to contrast bolus timing. A large portion of the bolus is still present within the SVC. There i s no central pulmonary emboli identified. The segmental and subsegmental branches are not well evalua roxana. Nonopacification of the segmental and subsegmental branches within the lower lobes, notably with in the right lower lobe on image [address] CHEST: Heterogeneous thyroid with probable subcentimeter hypodense left thyroid nodule. No adenopathy by CT size criteria. There are a few prominent AP window lymph nodes which are likely on a physiologic basi s. Small left and moderate right pleural effusions. No pneumothorax. Right greater than left bibasila r dependent consolidation with groundglass opacities. The central airways appear patent. Mild thickening of the bilateral adrenal glands may reflect hyperplasia. Nonspecific bilateral perine phric stranding. Soft tissues are unremarkable. The bones appear intact. IMPRESSION: 1. Limited exam secondary to contrast bolus timing. No central pulmonary emboli identified. Apparent filling defects within the segmental and subsegmental branches of the lung bases, notably within the right lower lobe may be secondary to nonopacification secondary to contrast bolus timing with pulmona ry emboli considered less likely however not excluded. A short-term repeat follow-up study is recomme nded. 2. Moderate to marked cardiomegaly with pulmonary vascular congestion and trace pericardial effusion. 3. Small left and moderate right pleural effusions with right greater than left bibasilar opacities s uggestive of atelectasis. Superimposed pneumonitis is considered less likely. Findings were discussed with Dr. Lj Lovett on 01/29/2020 at 8:02 AM. ACT 112: Negative or not required by law. The above report was generated using voice recognition software. It may contain grammatical, syntax o r spelling errors. Electronically signed by: Harry Gonzales M.D. 01/29/2020 8:38 AM
[2020-01-29 08:47] LABS: Hepatitis B Surface Antigen Neg (Neg)
--- NOTE | 2020-01-29 08:48 | XCELERA ---
[id number] \\[id number]\[id number]_[id number]
[2020-01-29] MEDS ORDERED: INSULIN REGULAR SQ SCH ×4 (09:00→21:00)
[2020-01-29] MEDS ORDERED: INSULIN ISOPHANE SQ SCH ×4 (09:00→21:00)
[2020-01-29 09:16] LABS: Hepatitis C IgG 13Yrs+Old_Rflx Neg (Neg)
--- NOTE | 2020-01-29 13:16 | Cardiology Consultation ---
Date of Consultation January 29, 2020 Assessment & Plan (1) Acute systolic (congestive) heart failure: (2) Cardiomyopathy: (3) Elevated troponin: (4) HTN (hypertension): (5) HLD (hyperlipidemia): (6) Tobacco abuse: ASSESSMENT/PLAN: 1. Acute systolic CHF: Recommend further diuresis. Given that he will likely undergo cardiac catheterization soon, will give further diuretic after [place]. Recommended low-sodium diet. Less than 2000 mg of sodium per day. Check daily weights. Strict I&Os. He has urinated however it does not appear as though he is collecting it. Recommend converting metoprolol tartrate to metoprolol succinate prior to discharge. If Entresto is available at his correctional facility, would recommend discharge home with this medication if renal function does not significantly worsen. If this is not an option, would recommend low- dose lisinopril. Would first tried further diuresing with monitoring of renal function before introducing these medications. 2. Cardiomyopathy: Etiology not yet defined but given multiple cardiac risk factors, should consider ischemic etiology. Recommend cardiac catheterization given worsening symptoms as an outpatient and decompensated heart failure. Risks and benefits were discussed with him. He was agreeable to undergo the procedure. He was made aware that CT surgery is not available at this facility. Cardiac catheterization was recommended due to the mortality and morbidity related to ischemic heart disease, especially with severely reduced LV systolic function and heart failure. 3. Elevated troponin: There is suspicion for underlying multivessel CAD as noted above. Also, elevated troponin could be related to decompensated CHF. Recommendation as above. 4. Hypertension: Blood pressure has mostly been elevated. This should improve with diuresis and also should allow for standard heart failure treatment such as Entresto or NAYANA inhibitor. 5. Dyslipidemia: Agree with high-intensity statin therapy. 6. Tobacco abuse: Stop smoking. 7. Disposition: Cardiology will continue to follow. 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 Patient care discussed with Dr. Lovett of the primary hospitalist service. Highly complex medical issues. Thank you for allowing me to participate in the care of your patient. Please call for any other questions or concerns. Sincerely, Delta Shaikh M.D. History of Present Illness Reason for Consultation: "pulmonary emboli, elevated trop" Requesting Physician: Dr. Nieto Attending Physician: Lj Lovett MD History of Present Illness Mr. Edmond is a 64-year-old gentleman with history significant for type 2 diabetes (on insulin), hypertension, dyslipidemia, and tobacco abuse. He was admitted to [facility] on 01/29/2020 with concern of pulmonary embolism. He states that for the past 2 months or so, he had noted swelling in his legs. For the past 2 weeks he has had worsening dyspnea with exertion. For the past 3 days he has noted shortness of breath at rest, more specifically orthopnea. While using supplemental oxygen here in the hospital, he is able to lay flat without shortness of breath. He denies any shortness of breath while using supplemental oxygen here. He states that he does consume foods high in sodium content but that low-sodium foods are available at his correctional facility. While here, he had a CT scan of the chest which apparently was reported as pulmonary emboli but has since been officially interpreted by Radiology on site to be less likely positive for PE. He was given albumin and furosemide this morning at approximately 5:00 a.m.. He denies any chest discomfort, chest pain, syncope, near-syncope, palpitations, or bleeding such as melena, hematochezia, or hematuria. He denies any fevers, chills, nausea, vomiting, or abdominal discomfort. Review of systems: As above. Review of systems otherwise negative/unremarkable. Family history: No known premature CAD. Social history: He smokes 1 pack of cigarettes per day. He started smoking at the age of 19 and has smoked up to 2 packs per day. No alcohol. Denies drug abuse. He is . He has 3 children. He is from the [place] area. He has been incarcerated for approximately 14 years. He currently resides at [facility]. He was accompanied by 2 correctional guards. Allergies Allergy/AdvReac Type Severity Reaction Status Date / Time No Known Allergies Allergy Verified 01/28/20 23:23 Home Medications Home Medications Medication Instructions Recorded Confirmed Type Humulin 70/30 U-100 Insulin 25 unit SUBCUT QPM 03/30/19 01/28/20 History Humulin 70/30 U-100 Insulin 34 unit SUBCUT QAM 03/30/19 01/28/20 History Humulin R Regular U-100 Insuln 1 sliding scale dose SUBCUT 03/30/19 01/28/20 History USEASDIRECTD aspirin 325 mg PO DAILY 03/30/19 01/28/20 History furosemide 80 mg PO DAILY 03/30/19 01/28/20 History losartan 100 mg PO DAILY 03/30/19 01/28/20 History metformin 1,000 mg PO BID 03/30/19 01/28/20 History metoprolol tartrate 100 mg PO BID 03/30/19 01/28/20 History potassium chloride 10 meq PO DAILY 03/30/19 01/28/20 History rosuvastatin 40 mg PO DAILY 03/30/19 01/28/20 History Patient History Medical History Diabetes mellitus, type 2 IDDM Hyperlipidemia Hypertension Obesity Surgical History Brain aneurysm REPAIR ()= NO FURTHER DETAILS Social History (Updated 01/29/20 @ 13:15 by Pancho Shaikh MD) Preferred Language: Luxembourgish Communication Ability: Effective Caddie Supervisor Required: No Beliefs That Will Affect Care: None Current Living Situation: Other Current Living Situation Comment: half-way Feels Safe at Home: Yes Safety Concerns: Feels Safe At This Time Hx Alcohol Use: No Hx Substance Use: No Physical Exam Physical Exam: Gen.: No acute distress. Alert and oriented. HEENT: Anicteric sclera. Neck: Thick neck. JVD noted. No bruit. Normal carotid upstrokes bilaterally. Cardiac: PMI was nonpalpable. No ventricular heave. Regular. Normal S1-S2. No murmurs, rubs, or gallops. Pulmonary: Decreased breath sounds bilaterally, but otherwise clear to auscultation bilaterally without wheezes, rales, or rhonchi. Abdomen: Obese. Soft, nontender, nondistended, with normoactive bowel sounds. No bruits noted. Extremities: Weak right radial pulse. 2+ left radial pulse. 2+ posterior tibialis pulses bilaterally. 3 to 4+ bilateral lower extremity edema to the knees. 1+ bilateral lower extremity edema above the knees. No cyanosis. Psychiatric: Affect appears appropriate. Results & Data ([facility]) Vital Signs (Past 12 Hours) Vital Signs Temp Pulse Pulse Pulse Resp BP Pulse Ox 01/29/20 12:35 36.9 C 57 L 20 161/88 H 100 01/29/20 07:35 75 01/29/20 07:20 36.8 C 62 18 107/63 93 01/29/20 02:52 36.8 C 60 24 148/98 H 98 01/29/20 02:22 36.5 C 59 L 22 144/100 H 97 Intake & Output 01/27/20 01/28/20 01/29/20 01/30/20 06:59 06:59 06:59 06:59 Intake Total 54 54 348.500 / 348.500 Balance 54 54 348.500 / 348.500 Weight 118.7 kg Laboratory Results Laboratory Results - last 24 hr 01/28/20 01/28/20 01/28/20 22:44 23:00 23:00 WBC 6.46 RBC 6.56 H Hgb 14.1 POC Hgb Hct 46.2 POC Hct MCV 70.4 L MCH 21.5 L MCHC 30.5 L RDW Std Deviation 42.5 RDW Coeff of Malina 17.5 H Plt Count 217 MPV 10.0 Immature Gran % (Auto) 0.2 Neut % (Auto) 68.1 Lymph % (Auto) 24.8 [place] % (Auto) 4.8 Eos % (Auto) 1.5 Baso % (Auto) 0.6 Immature Gran # (Auto) 0.01 Neut # (Auto) 4.40 Lymph # (Auto) 1.60 [place] # (Auto) 0.31 Eos # (Auto) 0.10 Baso # (Auto) 0.04 Toxic Vacuolation Hypochromasia Present Microcytosis Target Cells PT Cancelled INR Cancelled APTT Cancelled PTT Ratio Cancelled LA PTT Screen Protein C Activity Protein S Activity Antithrombin III Activ Factor V Leiden Mutat Factor V Leiden Interp ABG pH ABG pCO2 ABG pO2 ABG HCO3 ABG O2 Saturation ABG Base Excess Kian Test Barometric Pressure Oxygen Given POC Sodium Sodium POC Potassium Potassium POC Chloride Chloride Carbon Dioxide POC Total CO2 Anion Gap POC Anion Gap POC BUN BUN Creatinine POC Creatinine Est Cr Clr Drug Dosing Est GFR ( Amer) Est GFR (Non-Af Amer) BUN/Creatinine Ratio Glucose POC Glucose 73 POC Glucose (other) Calcium POC Ioniz Calcium Kvng Magnesium Total Bilirubin AST ALT Alkaline Phosphatase POC Troponin I Troponin I Total Protein Albumin Globulin Albumin/Globulin Ratio Homocysteine Urine Color Urine Appearance Urine pH Ur Specific Ideal Urine Protein Urine Glucose (UA) Urine Ketones Urine Blood Urine Nitrite Urine Bilirubin Urine Urobilinogen Ur Leukocyte Esterase Urine WBC (Auto) Urine RBC (Auto) U Hyaline Cast (Auto) U Epithel Cells (Auto) Urine Bacteria (Auto) Nasal Screen MRSA (PCR) Beta-2-GPI IgG Ab Beta-2-GPI IgA Ab Beta-2-GPI IgM Ab Anti-Cardiolipin IgG Ab Anti-Cardiolipin IgA Ab Anti-Cardiolipin IgM Ab Hepatitis A IgM Ab Hep Bs Antigen Hep B Core IgM Ab Hepatitis C Antibody Prothrombin Gene Mutate Prothromb Gene Comment 01/28/20 01/28/20 01/28/20 23:14 23:14 23:14 WBC RBC Hgb POC Hgb 17.0 Hct POC Hct 50 MCV MCH MCHC RDW Std Deviation RDW Coeff of Malina Plt Count MPV Immature Gran % (Auto) Neut % (Auto) Lymph % (Auto) [place] % (Auto) Eos % (Auto) Baso % (Auto) Immature Gran # (Auto) Neut # (Auto) Lymph # (Auto) [place] # (Auto) Eos # (Auto) Baso # (Auto) Toxic Vacuolation Hypochromasia Microcytosis Target Cells PT INR APTT PTT Ratio LA PTT Screen Protein C Activity Protein S Activity Antithrombin III Activ Factor V Leiden Mutat Factor V Leiden Interp ABG pH 7.41 ABG pCO2 39 ABG pO2 220 H ABG HCO3 24 ABG O2 Saturation 99.6 H ABG Base Excess -0.6 Kian Test POS Barometric Pressure 737.1 Oxygen Given ROOM AIR POC Sodium 141 Sodium POC Potassium 3.8 Potassium POC Chloride 112 Chloride Carbon Dioxide POC Total CO2 21 L Anion Gap POC Anion Gap 13.0 L POC BUN 24 H BUN Creatinine POC Creatinine 1.7 H Est Cr Clr Drug Dosing Est GFR ( Amer) Est GFR (Non-Af Amer) BUN/Creatinine Ratio Glucose POC Glucose POC Glucose (other) 110 H Calcium POC Ioniz Calcium Kvng 0.87 L Magnesium Total Bilirubin AST ALT Alkaline Phosphatase POC Troponin I 0.24 H Troponin I Total Protein Albumin Globulin Albumin/Globulin Ratio Homocysteine Urine Color Urine Appearance Urine pH Ur Specific Ideal Urine Protein Urine Glucose (UA) Urine Ketones Urine Blood Urine Nitrite Urine Bilirubin Urine Urobilinogen Ur Leukocyte Esterase Urine WBC (Auto) Urine RBC (Auto) U Hyaline Cast (Auto) U Epithel Cells (Auto) Urine Bacteria (Auto) Nasal Screen MRSA (PCR) Beta-2-GPI IgG Ab Beta-2-GPI IgA Ab Beta-2-GPI IgM Ab Anti-Cardiolipin IgG Ab Anti-Cardiolipin IgA Ab Anti-Cardiolipin IgM Ab Hepatitis A IgM Ab Hep Bs Antigen Hep B Core IgM Ab Hepatitis C Antibody Prothrombin Gene Mutate Prothromb Gene Comment 01/28/20 01/29/20 01/29/20 23:15 00:00 00:01 WBC RBC Hgb POC Hgb Hct POC Hct MCV MCH MCHC RDW Std Deviation RDW Coeff of Malina Plt Count MPV Immature Gran % (Auto) Neut % (Auto) Lymph % (Auto) [place] % (Auto) Eos % (Auto) Baso % (Auto) Immature Gran # (Auto) Neut # (Auto) Lymph # (Auto) [place] # (Auto) Eos # (Auto) Baso # (Auto) Toxic Vacuolation Hypochromasia Microcytosis Target Cells PT 12.1 H INR 1.2 H APTT 28.7 PTT Ratio 1.0 LA PTT Screen Pending Protein C Activity Pending Protein S Activity Pending Antithrombin III Activ Pending Factor V Leiden Mutat Pending Factor V Leiden Interp Pending ABG pH ABG pCO2 ABG pO2 ABG HCO3 ABG O2 Saturation ABG Base Excess Kian Test Barometric Pressure Oxygen Given POC Sodium Sodium 141 POC Potassium Potassium 3.5 POC Chloride Chloride 112 H Carbon Dioxide 25 POC Total CO2 Anion Gap 4.0 POC Anion Gap POC BUN BUN 22 H Creatinine 1.67 H POC Creatinine Est Cr Clr Drug Dosing 60.7 Est GFR ( Amer) 50.1 Est GFR (Non-Af Amer) 43.2 BUN/Creatinine Ratio 13.1 Glucose 154 H POC Glucose POC Glucose (other) Calcium 8.2 L POC Ioniz Calcium Kvng Magnesium 2.0 Total Bilirubin 0.5 AST 74 H ALT 74 Alkaline Phosphatase 83 POC Troponin I Troponin I 0.285 H* Total Protein 7.0 Albumin 2.8 L Globulin 4.2 H Albumin/Globulin Ratio 0.7 L Homocysteine Urine Color Urine Appearance Urine pH Ur Specific Ideal Urine Protein Urine Glucose (UA) Urine Ketones Urine Blood Urine Nitrite Urine Bilirubin Urine Urobilinogen Ur Leukocyte Esterase Urine WBC (Auto) Urine RBC (Auto) U Hyaline Cast (Auto) U Epithel Cells (Auto) Urine Bacteria (Auto) Nasal Screen MRSA (PCR) Beta-2-GPI IgG Ab Pending Beta-2-GPI IgA Ab Pending Beta-2-GPI IgM Ab Pending Anti-Cardiolipin IgG Ab Pending Anti-Cardiolipin IgA Ab Pending Anti-Cardiolipin IgM Ab Pending Hepatitis A IgM Ab Hep Bs Antigen Hep B Core IgM Ab Hepatitis C Antibody Prothrombin Gene Mutate Pending Prothromb Gene Comment Pending 01/29/20 01/29/20 01/29/20 00:01 00:10 01:06 WBC RBC Hgb POC Hgb Hct POC Hct MCV MCH MCHC RDW Std Deviation RDW Coeff of Malina Plt Count MPV Immature Gran % (Auto) Neut % (Auto) Lymph % (Auto) [place] % (Auto) Eos % (Auto) Baso % (Auto) Immature Gran # (Auto) Neut # (Auto) Lymph # (Auto) [place] # (Auto) Eos # (Auto) Baso # (Auto) Toxic Vacuolation Hypochromasia Microcytosis Target Cells PT INR APTT PTT Ratio LA PTT Screen Protein C Activity Protein S Activity Antithrombin III Activ Factor V Leiden Mutat Factor V Leiden Interp ABG pH ABG pCO2 ABG pO2 ABG HCO3 ABG O2 Saturation ABG Base Excess Kian Test Barometric Pressure Oxygen Given POC Sodium Sodium POC Potassium Potassium POC Chloride Chloride Carbon Dioxide POC Total CO2 Anion Gap POC Anion Gap POC BUN BUN Creatinine POC Creatinine Est Cr Clr Drug Dosing Est GFR ( Amer) Est GFR (Non-Af Amer) BUN/Creatinine Ratio Glucose POC Glucose 63 L* POC Glucose (other) Calcium POC Ioniz Calcium Kvng Magnesium Total Bilirubin AST ALT Alkaline Phosphatase POC Troponin I Troponin I Total Protein Albumin Globulin Albumin/Globulin Ratio Homocysteine Pending Urine Color Yellow Urine Appearance Clear Urine pH 5.0 Ur Specific Ideal 1.020 Urine Protein 1+ H Urine Glucose (UA) Negative Urine Ketones Negative Urine Blood Negative Urine Nitrite Negative Urine Bilirubin Negative Urine Urobilinogen Negative Ur Leukocyte Esterase Negative Urine WBC (Auto) 1-5 Urine RBC (Auto) 0-4 U Hyaline Cast (Auto) 1-5 U Epithel Cells (Auto) 5-10 H Urine Bacteria (Auto) Negative Nasal Screen MRSA (PCR) Beta-2-GPI IgG Ab Beta-2-GPI IgA Ab Beta-2-GPI IgM Ab Anti-Cardiolipin IgG Ab Anti-Cardiolipin IgA Ab Anti-Cardiolipin IgM Ab Hepatitis A IgM Ab Hep Bs Antigen Hep B Core IgM Ab Hepatitis C Antibody Prothrombin Gene Mutate Prothromb Gene Comment 01/29/20 01/29/20 01/29/20 01:32 02:21 02:38 WBC RBC Hgb POC Hgb Hct POC Hct MCV MCH MCHC RDW Std Deviation RDW Coeff of Malina Plt Count MPV Immature Gran % (Auto) Neut % (Auto) Lymph % (Auto) [place] % (Auto) Eos % (Auto) Baso % (Auto) Immature Gran # (Auto) Neut # (Auto) Lymph # (Auto) [place] # (Auto) Eos # (Auto) Baso # (Auto) Toxic Vacuolation Hypochromasia Microcytosis Target Cells PT INR APTT PTT Ratio LA PTT Screen Protein C Activity Protein S Activity Antithrombin III Activ Factor V Leiden Mutat Factor V Leiden Interp ABG pH ABG pCO2 ABG pO2 ABG HCO3 ABG O2 Saturation ABG Base Excess Kian Test Barometric Pressure Oxygen Given POC Sodium Sodium POC Potassium Potassium POC Chloride Chloride Carbon Dioxide POC Total CO2 Anion Gap POC Anion Gap POC BUN BUN Creatinine POC Creatinine Est Cr Clr Drug Dosing Est GFR ( Amer) Est GFR (Non-Af Amer) BUN/Creatinine Ratio Glucose POC Glucose 113 H 90 82 POC Glucose (other) Calcium POC Ioniz Calcium Kvng Magnesium Total Bilirubin AST ALT Alkaline Phosphatase POC Troponin I Troponin I Total Protein Albumin Globulin Albumin/Globulin Ratio Homocysteine Urine Color Urine Appearance Urine pH Ur Specific Ideal Urine Protein Urine Glucose (UA) Urine Ketones Urine Blood Urine Nitrite Urine Bilirubin Urine Urobilinogen Ur Leukocyte Esterase Urine WBC (Auto) Urine RBC (Auto) U Hyaline Cast (Auto) U Epithel Cells (Auto) Urine Bacteria (Auto) Nasal Screen MRSA (PCR) Beta-2-GPI IgG Ab Beta-2-GPI IgA Ab Beta-2-GPI IgM Ab Anti-Cardiolipin IgG Ab Anti-Cardiolipin IgA Ab Anti-Cardiolipin IgM Ab Hepatitis A IgM Ab Hep Bs Antigen Hep B Core IgM Ab Hepatitis C Antibody Prothrombin Gene Mutate Prothromb Gene Comment 01/29/20 01/29/20 01/29/20 02:54 03:45 03:51 WBC RBC Hgb POC Hgb Hct POC Hct MCV MCH MCHC RDW Std Deviation RDW Coeff of Malina Plt Count MPV Immature Gran % (Auto) Neut % (Auto) Lymph % (Auto) [place] % (Auto) Eos % (Auto) Baso % (Auto) Immature Gran # (Auto) Neut # (Auto) Lymph # (Auto) [place] # (Auto) Eos # (Auto) Baso # (Auto) Toxic Vacuolation Hypochromasia Microcytosis Target Cells PT INR APTT PTT Ratio LA PTT Screen Protein C Activity Protein S Activity Antithrombin III Activ Factor V Leiden Mutat Factor V Leiden Interp ABG pH ABG pCO2 ABG pO2 ABG HCO3 ABG O2 Saturation ABG Base Excess Kian Test Barometric Pressure Oxygen Given POC Sodium Sodium POC Potassium Potassium POC Chloride Chloride Carbon Dioxide POC Total CO2 Anion Gap POC Anion Gap POC BUN BUN Creatinine POC Creatinine Est Cr Clr Drug Dosing Est GFR ( Amer) Est GFR (Non-Af Amer) BUN/Creatinine Ratio Glucose POC Glucose 84 117 H POC Glucose (other) Calcium POC Ioniz Calcium Kvng Magnesium Total Bilirubin AST ALT Alkaline Phosphatase POC Troponin I Troponin I Total Protein Albumin Globulin Albumin/Globulin Ratio Homocysteine Urine Color Urine Appearance Urine pH Ur Specific Ideal Urine Protein Urine Glucose (UA) Urine Ketones Urine Blood Urine Nitrite Urine Bilirubin Urine Urobilinogen Ur Leukocyte Esterase Urine WBC (Auto) Urine RBC (Auto) U Hyaline Cast (Auto) U Epithel Cells (Auto) Urine Bacteria (Auto) Nasal Screen MRSA (PCR) Negative Beta-2-GPI IgG Ab Beta-2-GPI IgA Ab Beta-2-GPI IgM Ab Anti-Cardiolipin IgG Ab Anti-Cardiolipin IgA Ab Anti-Cardiolipin IgM Ab Hepatitis A IgM Ab Hep Bs Antigen Hep B Core IgM Ab Hepatitis C Antibody Prothrombin Gene Mutate Prothromb Gene Comment 01/29/20 01/29/20 01/29/20 05:03 06:04 06:04 WBC 5.59 RBC 6.37 H Hgb 13.9 L POC Hgb Hct 44.3 POC Hct MCV 69.5 L MCH 21.8 L MCHC 31.4 L RDW Std Deviation 41.7 RDW Coeff of Malina 17.0 H Plt Count 216 MPV 9.7 Immature Gran % (Auto) 0.0 Neut % (Auto) 57.7 Lymph % (Auto) 34.2 [place] % (Auto) 5.9 Eos % (Auto) 1.8 Baso % (Auto) 0.4 Immature Gran # (Auto) 0.00 Neut # (Auto) 3.23 Lymph # (Auto) 1.91 [place] # (Auto) 0.33 Eos # (Auto) 0.10 Baso # (Auto) 0.02 Toxic Vacuolation 1+ Hypochromasia Microcytosis Present Target Cells 1+ PT INR APTT PTT Ratio LA PTT Screen Protein C Activity Protein S Activity Antithrombin III Activ Factor V Leiden Mutat Factor V Leiden Interp ABG pH ABG pCO2 ABG pO2 ABG HCO3 ABG O2 Saturation ABG Base Excess Kian Test Barometric Pressure Oxygen Given POC Sodium Sodium 143 POC Potassium Potassium 3.3 L POC Chloride Chloride 110 H Carbon Dioxide 27 POC Total CO2 Anion Gap 6.0 POC Anion Gap POC BUN BUN 21 H Creatinine 1.63 H POC Creatinine Est Cr Clr Drug Dosing 62.5 Est GFR ( Amer) 51.6 Est GFR (Non-Af Amer) 44.5 BUN/Creatinine Ratio 12.6 Glucose 103 H POC Glucose 150 H POC Glucose (other) Calcium 8.4 L POC Ioniz Calcium Kvng Magnesium 2.0 Total Bilirubin 0.7 AST 57 H ALT 71 Alkaline Phosphatase 73 POC Troponin I Troponin I 0.261 H* Total Protein 6.6 Albumin 2.8 L Globulin 3.8 Albumin/Globulin Ratio 0.7 L Homocysteine Urine Color Urine Appearance Urine pH Ur Specific Ideal Urine Protein Urine Glucose (UA) Urine Ketones Urine Blood Urine Nitrite Urine Bilirubin Urine Urobilinogen Ur Leukocyte Esterase Urine WBC (Auto) Urine RBC (Auto) U Hyaline Cast (Auto) U Epithel Cells (Auto) Urine Bacteria (Auto) Nasal Screen MRSA (PCR) Beta-2-GPI IgG Ab Beta-2-GPI IgA Ab Beta-2-GPI IgM Ab Anti-Cardiolipin IgG Ab Anti-Cardiolipin IgA Ab Anti-Cardiolipin IgM Ab Hepatitis A IgM Ab Hep Bs Antigen Hep B Core IgM Ab Hepatitis C Antibody Prothrombin Gene Mutate Prothromb Gene Comment 01/29/20 01/29/20 01/29/20 06:04 06:04 06:04 WBC RBC Hgb POC Hgb Hct POC Hct MCV MCH MCHC RDW Std Deviation RDW Coeff of Malina Plt Count MPV Immature Gran % (Auto) Neut % (Auto) Lymph % (Auto) [place] % (Auto) Eos % (Auto) Baso % (Auto) Immature Gran # (Auto) Neut # (Auto) Lymph # (Auto) [place] # (Auto) Eos # (Auto) Baso # (Auto) Toxic Vacuolation Hypochromasia Microcytosis Target Cells PT INR APTT Cancelled PTT Ratio Cancelled LA PTT Screen Protein C Activity Protein S Activity Antithrombin III Activ Factor V Leiden Mutat Factor V Leiden Interp ABG pH ABG pCO2 ABG pO2 ABG HCO3 ABG O2 Saturation ABG Base Excess Kian Test Barometric Pressure Oxygen Given POC Sodium Sodium POC Potassium Potassium POC Chloride Chloride Carbon Dioxide POC Total CO2 Anion Gap POC Anion Gap POC BUN BUN Creatinine POC Creatinine Est Cr Clr Drug Dosing Est GFR ( Amer) Est GFR (Non-Af Amer) BUN/Creatinine Ratio Glucose POC Glucose POC Glucose (other) Calcium POC Ioniz Calcium Kvng Magnesium Total Bilirubin AST ALT Alkaline Phosphatase POC Troponin I Troponin I Total Protein Albumin Globulin Albumin/Globulin Ratio Homocysteine Urine Color Urine Appearance Urine pH Ur Specific Ideal Urine Protein Urine Glucose (UA) Urine Ketones Urine Blood Urine Nitrite Urine Bilirubin Urine Urobilinogen Ur Leukocyte Esterase Urine WBC (Auto) Urine RBC (Auto) U Hyaline Cast (Auto) U Epithel Cells (Auto) Urine Bacteria (Auto) Nasal Screen MRSA (PCR) Beta-2-GPI IgG Ab Beta-2-GPI IgA Ab Beta-2-GPI IgM Ab Anti-Cardiolipin IgG Ab Anti-Cardiolipin IgA Ab Anti-Cardiolipin IgM Ab Hepatitis A IgM Ab Pending Hep Bs Antigen Neg Hep B Core IgM Ab Pending Hepatitis C Antibody Neg Prothrombin Gene Mutate Prothromb Gene Comment 01/29/20 01/29/20 01/29/20 07:23 07:35 07:37 WBC RBC Hgb POC Hgb Hct POC Hct MCV MCH MCHC RDW Std Deviation RDW Coeff of Malina Plt Count MPV Immature Gran % (Auto) Neut % (Auto) Lymph % (Auto) [place] % (Auto) Eos % (Auto) Baso % (Auto) Immature Gran # (Auto) Neut # (Auto) Lymph # (Auto) [place] # (Auto) Eos # (Auto) Baso # (Auto) Toxic Vacuolation Hypochromasia Microcytosis Target Cells PT INR APTT Cancelled PTT Ratio Cancelled LA PTT Screen Protein C Activity Protein S Activity Antithrombin III Activ Factor V Leiden Mutat Factor V Leiden Interp ABG pH ABG pCO2 ABG pO2 ABG HCO3 ABG O2 Saturation ABG Base Excess Kian Test Barometric Pressure Oxygen Given POC Sodium Sodium POC Potassium Potassium POC Chloride Chloride Carbon Dioxide POC Total CO2 Anion Gap POC Anion Gap POC BUN BUN Creatinine POC Creatinine Est Cr Clr Drug Dosing Est GFR ( Amer) Est GFR (Non-Af Amer) BUN/Creatinine Ratio Glucose POC Glucose 64 L* 62 L* POC Glucose (other) Calcium POC Ioniz Calcium Kvng Magnesium Total Bilirubin AST ALT Alkaline Phosphatase POC Troponin I Troponin I Total Protein Albumin Globulin Albumin/Globulin Ratio Homocysteine Urine Color Urine Appearance Urine pH Ur Specific Ideal Urine Protein Urine Glucose (UA) Urine Ketones Urine Blood Urine Nitrite Urine Bilirubin Urine Urobilinogen Ur Leukocyte Esterase Urine WBC (Auto) Urine RBC (Auto) U Hyaline Cast (Auto) U Epithel Cells (Auto) Urine Bacteria (Auto) Nasal Screen MRSA (PCR) Beta-2-GPI IgG Ab Beta-2-GPI IgA Ab Beta-2-GPI IgM Ab Anti-Cardiolipin IgG Ab Anti-Cardiolipin IgA Ab Anti-Cardiolipin IgM Ab Hepatitis A IgM Ab Hep Bs Antigen Hep B Core IgM Ab Hepatitis C Antibody Prothrombin Gene Mutate Prothromb Gene Comment 01/29/20 01/29/20 01/29/20 08:02 08:08 08:28 WBC RBC Hgb POC Hgb Hct POC Hct MCV MCH MCHC RDW Std Deviation RDW Coeff of Malina Plt Count MPV Immature Gran % (Auto) Neut % (Auto) Lymph % (Auto) [place] % (Auto) Eos % (Auto) Baso % (Auto) Immature Gran # (Auto) Neut # (Auto) Lymph # (Auto) [place] # (Auto) Eos # (Auto) Baso # (Auto) Toxic Vacuolation Hypochromasia Microcytosis Target Cells PT INR APTT Cancelled PTT Ratio Cancelled LA PTT Screen Protein C Activity Protein S Activity Antithrombin III Activ Factor V Leiden Mutat Factor V Leiden Interp ABG pH ABG pCO2 ABG pO2 ABG HCO3 ABG O2 Saturation ABG Base Excess Kian Test Barometric Pressure Oxygen Given POC Sodium Sodium POC Potassium Potassium POC Chloride Chloride Carbon Dioxide POC Total CO2 Anion Gap POC Anion Gap POC BUN BUN Creatinine POC Creatinine Est Cr Clr Drug Dosing Est GFR ( Amer) Est GFR (Non-Af Amer) BUN/Creatinine Ratio Glucose POC Glucose 56 L* 148 H POC Glucose (other) Calcium POC Ioniz Calcium Kvng Magnesium Total Bilirubin AST ALT Alkaline Phosphatase POC Troponin I Troponin I Total Protein Albumin Globulin Albumin/Globulin Ratio Homocysteine Urine Color Urine Appearance Urine pH Ur Specific Ideal Urine Protein Urine Glucose (UA) Urine Ketones Urine Blood Urine Nitrite Urine Bilirubin Urine Urobilinogen Ur Leukocyte Esterase Urine WBC (Auto) Urine RBC (Auto) U Hyaline Cast (Auto) U Epithel Cells (Auto) Urine Bacteria (Auto) Nasal Screen MRSA (PCR) Beta-2-GPI IgG Ab Beta-2-GPI IgA Ab Beta-2-GPI IgM Ab Anti-Cardiolipin IgG Ab Anti-Cardiolipin IgA Ab Anti-Cardiolipin IgM Ab Hepatitis A IgM Ab Hep Bs Antigen Hep B Core IgM Ab Hepatitis C Antibody Prothrombin Gene Mutate Prothromb Gene Comment 01/29/20 01/29/20 09:08 11:22 WBC RBC Hgb POC Hgb Hct POC Hct MCV MCH MCHC RDW Std Deviation RDW Coeff of Malina Plt Count MPV Immature Gran % (Auto) Neut % (Auto) Lymph % (Auto) [place] % (Auto) Eos % (Auto) Baso % (Auto) Immature Gran # (Auto) Neut # (Auto) Lymph # (Auto) [place] # (Auto) Eos # (Auto) Baso # (Auto) Toxic Vacuolation Hypochromasia Microcytosis Target Cells PT INR APTT Cancelled PTT Ratio Cancelled LA PTT Screen Protein C Activity Protein S Activity Antithrombin III Activ Factor V Leiden Mutat Factor V Leiden Interp ABG pH ABG pCO2 ABG pO2 ABG HCO3 ABG O2 Saturation ABG Base Excess Kian Test Barometric Pressure Oxygen Given POC Sodium Sodium POC Potassium Potassium POC Chloride Chloride Carbon Dioxide POC Total CO2 Anion Gap POC Anion Gap POC BUN BUN Creatinine POC Creatinine Est Cr Clr Drug Dosing Est GFR ( Amer) Est GFR (Non-Af Amer) BUN/Creatinine Ratio Glucose POC Glucose 191 H POC Glucose (other) Calcium POC Ioniz Calcium Kvng Magnesium Total Bilirubin AST ALT Alkaline Phosphatase POC Troponin I Troponin I Total Protein Albumin Globulin Albumin/Globulin Ratio Homocysteine Urine Color Urine Appearance Urine pH Ur Specific Ideal Urine Protein Urine Glucose (UA) Urine Ketones Urine Blood Urine Nitrite Urine Bilirubin Urine Urobilinogen Ur Leukocyte Esterase Urine WBC (Auto) Urine RBC (Auto) U Hyaline Cast (Auto) U Epithel Cells (Auto) Urine Bacteria (Auto) Nasal Screen MRSA (PCR) Beta-2-GPI IgG Ab Beta-2-GPI IgA Ab Beta-2-GPI IgM Ab Anti-Cardiolipin IgG Ab Anti-Cardiolipin IgA Ab Anti-Cardiolipin IgM Ab Hepatitis A IgM Ab Hep Bs Antigen Hep B Core IgM Ab Hepatitis C Antibody Prothrombin Gene Mutate Prothromb Gene Comment Diagnostic Findings Telemetry personally reviewed: Sinus rhythm. ECGs personally reviewed: ECG 01/28/2020 at 11:46 p.m.: Sinus bradycardia 52 bpm. Inferior and anterior T-wave inversion. Prolonged QT. ECG 01/28/2020 at 10:55 p.m.: Sinus bradycardia 55 bpm. Inferior and anterior T-wave inversion. Prolonged QT. Echo 01/29/2020: Mildly dilated LV with severely reduced systolic function. EF 20-25%. Akinesis of the base to mid inferior wall and mid inferolateral wall. Otherwise, severely hypokinetic. Moderate to severe LVH. Moderate RV dilation with severely reduced systolic function. Biatrial dilation. No significant valvular abnormalities. Normal RVSP. CTA chest 01/28/2020: Per Radiology exam was limited secondary to contrast bolus timing. No central PE. Apparent filling defects within the segmental and subsegmental branches of the lung bases notably within the right lower lobe may be secondary to non opacifications secondary to contrast bolus timing with pulmonary emboli considered less likely. Cardiomegaly with pulmonary vascular congestion. Small left and moderate right pleural effusions. Lower extremity venous Doppler 01/29/2020: No DVT bilaterally. Medications Administered Current Inpatient Medications Aspirin (Ecotrin) 325 mg PO DAILY [place] Stop: 02/28/20 08:59 Last Admin: 01/29/20 08:33 Dose: 325 mg Documented by: Dextrose (Dextrose 50%) 25 - 50 ml IV UD PRN; Protocol PRN Reason: Hypoglycemia Protocol Stop: 02/28/20 02:44 Last Admin: 01/29/20 08:10 Dose: 25 ml Documented by: Glucagon (Glucagen) 1 mg IM UD PRN; Protocol PRN Reason: Hypoglycemia Protocol Stop: 02/28/20 02:44 Glucose (Glucose 40%) 15 - 30 gm PO UD PRN; Protocol PRN Reason: Hypoglycemia Protocol Stop: 02/28/20 02:44 Glucose (Dex4 Glucose) 4 - 8 tabs PO UD PRN; Protocol PRN Reason: Hypoglycemia Protocol Stop: 02/28/20 02:44 Metoprolol Tartrate (Lopressor) 50 mg PO BID [place] Stop: 02/28/20 08:59 Last Admin: 01/29/20 08:32 Dose: 50 mg Documented by: Miscellaneous (Carbohydrates For Hypoglycemia) 15 - 30 gm PO UD PRN PRN Reason: Hypoglycemia Treatment Stop: 02/28/20 02:44 Last Admin: 01/29/20 07:44 Dose: 15 gm Documented by: Nitroglycerin (Nitro-Bid 2%) 0.5 inch EXT Q6H [place] Stop: 02/28/20 03:59 Last Admin: 01/29/20 11:20 Dose: 0.5 inch Documented by: Potassium Chloride (Klor-Con M10) 10 meq PO DAILY [place] Stop: 02/28/20 08:59 Last Admin: 01/29/20 08:32 Dose: 10 meq Documented by: Rosuvastatin Calcium (Crestor) 40 mg PO DAILY [place] Stop: 02/28/20 08:59 Last Admin: 01/29/20 08:32 Dose: 40 mg Documented by: PG Care Time/CCT Total # of Minutes Spent Total Time Spent with Patient: Total time spent is greater than 50% in coordination of care (as documented) at patient's floor/unit and/or counseling patient: Coding Level of Care Code 69810 Inpt Consult Level 5 Diagnoses Acute systolic (congestive) heart failure I50.21 Cardiomyopathy I42.9 Elevated troponin R79.89 HTN (hypertension) I10 HLD (hyperlipidemia) E78.5 Tobacco abuse Z72.0
--- NOTE | 2020-01-29 14:02 | Hospitalist Progress Note ---
Date of Service January 29, 2020 Assessment & Plan (1) Congestive heart failure: Acute on chronic systolic CHF. Echo this admission shows EF 20-25% with global hypokinesis and regions of akinesis. Likely ischemic cardiomyopathy. - Continue Lasix 40mg IV BID - Plan for catheterization today or Saturday with cardiology - Plan to start beta-kyle, ACEi, and spironolactone while admitted. - Daily weights and I&Os (2) Pulmonary embolism: Initially CTA chest read as PE, but this was considered a mistake by the daytime radiologist. - Will repeat CTA or V/Q on Saturday to ensure no PE. - Hold anticoagulation at this time. (3) NSTEMI (non-ST elevated myocardial infarction): Likely demand ischemia from CHF. - Will trend troponins and EKGs - Plan for cath as above (4) Elevated serum creatinine: Last Cr was 1.25 in 2018; however unclear what his baseline is. - Cr was 1.67 on admission. - Down to 1.63 today. - Monitor Cr with diuresis, contrast, and now catheterization (5) Type 2 diabetes mellitus: A1c is unknown. - Hypoglycemic on arrival and on the morning of 01/28; likely due to prior insulin administration at his institution. - Per pharmacy recs, will start lower-dose Lantus 15 units BID - Sliding scale insulin - Get A1c (6) HTN (hypertension): BP is presently 160/90. - Continue beta-kyle - Add ACEi when able with kidney function - Diurese (7) HLD (hyperlipidemia): - Continue statin (8) DVT prophylaxis: Heparin 5,000 units SQ Q12h Admission and Anticipated Discharge Date Admission Date: January 29, 2020 Subjective Less shortness of breath today. No cough. Legs are still swollen which he reports happens all the time. Feels well overall. Reports no fevers/chills, chest pain, abdominal pain, nausea, or vomiting. Physical Exam Constitutional: WD/WN, vitals as above Eyes: EOM intact bilaterally; no conjunctival abnormality ENMT: external ear and nose normal, oropharynx normal Neck: trachea midline, no thyromegaly normal visual inspection Respiratory: no respiratory distress and no labored breathing Auscultation: + crackles; no wheezes Cardiovascular: Rate/Rhythm: regular rate and regular rhythm Heart Sounds: normal S1 and normal S2 Vessels: + JVD Extremities: + edema Gastrointestinal (Abdomen): Inspection/Auscultation: abdomen normal to inspection; abdomen not distended Musculoskeletal: no cyanosis or clubbing, extremities motor strength 5/5 Skin: no rashes, warm and dry Neurologic: moves all extremities and awake Psychiatric: Orientation: alert, oriented to person and cooperative Results & Data Results & Data ([facility]) Vital Signs (Past 12 Hours) Vital Signs Temp Pulse Pulse Pulse Resp BP Pulse Ox 01/29/20 12:35 36.9 C 57 L 20 161/88 H 100 01/29/20 07:35 75 01/29/20 07:20 36.8 C 62 18 107/63 93 01/29/20 02:52 36.8 C 60 24 148/98 H 98 01/29/20 02:22 36.5 C 59 L 22 144/100 H 97 PG Care Time/CCT Total # of Minutes Spent Total Time Spent with Patient: Total time spent is greater than 50% in coordination of care (as documented) at patient's floor/unit and/or counseling patient: Coding Level of Care Code 60551 Subseq Hosp Care Lvl 3 Diagnoses Congestive heart failure I50.9 Pulmonary embolism I26.99 Acute cor pulmonale presence: without acute cor pulmonale Chronicity: acute Pulmonary embolism type: unspecified NSTEMI (non-ST elevated myocardial infarction) I21.4 Elevated serum creatinine R79.89 Type 2 diabetes mellitus E11.9 HTN (hypertension) I10 HLD (hyperlipidemia) E78.5 DVT prophylaxis Z29.9 (1) Pulmonary embolism Acute cor pulmonale presence: without acute cor pulmonale Chronicity: acute Pulmonary embolism type: unspecified Qualified Code(s): I26.99 - Other pulmonary embolism without acute cor pulmonale
[2020-01-29] MEDS ORDERED: HEPARIN (PORCINE) 1000 UNIT/ML 10 ML (CATH LAB USE ONLY) ONE (14:54)
[2020-01-29] MEDS ORDERED: NiCARDipine HCL INJ 2.5 MG/ML 10 ML AMP ONE (14:55)
[2020-01-29] MEDS ORDERED: MIDAZOLAM HCL 1 MG/ML 2ML VIAL ONE (14:55)
[2020-01-29] MEDS ORDERED: fentaNYL citrate 100 MCG/2 ML VIAL ONE (14:55)
[2020-01-29] MEDS ORDERED: NITROGLYCERIN/D5W 100MCG/ML 20ML SYR ONE (14:55)
[2020-01-29] MEDS: INSULIN GLARGINE SOLOSTAR 100 UNITS/ML 3 ML PEN SC SCH ×2 (15:01→20:32)
--- NOTE | 2020-01-29 15:40 | Pre Anesthesia Assessment ---
Date of Service January 29, 2020 Pre Sedation Assessment Vital Signs Temp Pulse Pulse Pulse Resp BP BP 01/29/20 12:35 36.9 C 57 L 20 161/88 H 01/29/20 07:35 75 01/29/20 07:20 36.8 C 62 18 107/63 01/29/20 02:52 36.8 C 60 24 148/98 H 01/29/20 02:22 36.5 C 59 L 22 144/100 H 01/29/20 01:00 63 18 156/114 H 01/28/20 23:36 58 L 22 148/106 H 01/28/20 23:13 01/28/20 23:07 57 L 24 01/28/20 22:47 36.8 C 58 L 18 135/94 Pulse Ox 01/29/20 12:35 100 01/29/20 07:35 01/29/20 07:20 93 01/29/20 02:52 98 01/29/20 02:22 97 01/29/20 01:00 96 01/28/20 23:36 97 01/28/20 23:13 92 01/28/20 23:07 95 01/28/20 22:47 88 L Cardiovascular RRR, no murmur, no edema Respiratory normal respiratory effort, lungs clear to auscultation Pre-Sedation Airway Assessment Smoking Status: Current every day smoker Hx Sleep Apnea: No Hx Difficult Intubation: No Mallampati Class: IV ASA: ASA3 NPO Status Date of Last Intake of Fluids: 01/29/20 Time of Last Intake of Fluids: 08:00 Date of Last Intake of Solid Food: 01/29/20 Time of Last Intake of Solid Foods: 08:00 Procedure Planning Contraindications for Sedation: none Current Medications Reviewed: Yes Notes The planned sedation has been discussed with the patient. Informed Consent was obtained. I have identified the patient, determined the appropriateness of sedation and have assessed the patient immediately prior to the procedure. All medicine(s) and interventions are by my order.
[2020-01-29 16:17] LABS: iSTAT Arterial Blood Gas HCO3 24 meg/L (19-24); iSTAT Arterial Blood Gas pCO2 33 mmHg (35-46); iSTAT Arterial Blood Gas pH 7.47 (7.35-7.45); iSTAT Arterial Blood Gas pO2 63 mmHg (80-95); iSTAT Carbon Dioxide 25 mmol/L (24-31); iSTAT Hematocrit 43 % (42-52); iSTAT Hemoglobin 14.6 g/dl (14.0-18.0); iSTAT Potassium 3.1 mmol/L (3.3-5.0); iSTAT Sodium 144 mmol/L (135-144)
[2020-01-29 16:17] LABS: iSTAT Arterial Blood Gas HCO3 28 meg/L (19-24); iSTAT Arterial Blood Gas pCO2 46 mmHg (35-46); iSTAT Arterial Blood Gas pH 7.39 (7.35-7.45); iSTAT Arterial Blood Gas pO2 < 32 mmHg (80-95); iSTAT Carbon Dioxide 29 mmol/L (24-31); iSTAT Hematocrit 42 % (42-52); iSTAT Hemoglobin 14.3 g/dl (14.0-18.0); iSTAT Potassium 3.1 mmol/L (3.3-5.0); iSTAT Sodium 146 mmol/L (135-144)
[2020-01-29] MEDS ORDERED: ADENOSINE IV SOLN 3 MG/ML 20 ML VIAL IV ONE (16:27)
--- NOTE | 2020-01-29 16:55 | Cardiac Catheterization ---
[facility] Data: Digital Media Intern Cardiac Status Clinical evaluation leading to the procedure CAD Presenation: No Sxs, No angina Anginal Classification: No Symptoms Heart Failure: NYHA Class: CCS IV Cardiogenic Shock within 24 Hours: No Cardiac Arrest within 24 Hours: No Imaging Studies Past 6 Months: Yes Stress Studies Past 6 Months: No Standard Exercise Test: No Stress Echocardiogram: No Stress Testing w/SPECT MPI: No Cardiac CTA: No Coronary Anatomy Dominant: Right Left Ventricular Angiography EF (%): n/a Diagnostic Physicians Name: Pancho Shaikh MD Status: Elective Closure Device Percutaneous Entry Location: Radial Closure Device: Radial Band Recommendations: Management Recommendatons (as above) Cardiac Cath Procedure Full Procedure Date January 29, 2020 Pre-Procedure Diagnosis Pre-Procedure Diagnosis: CHF and Cardiomyopathy AUC Score AUC Score: 7 Post-Procedure Diagnosis Post-Procedure Diagnosis: Severe CAD, Decreased LV Systolic Function and Elevated Intracardiac Pressures Procedure(s) Performed Procedure(s) Performed: Coronary Angiography, Left Heart Cath and Right Heart Cath Concierge Pancho Shaikh MD 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 Coronary angiography 2. Left heart catheterization 3. Right heart catheterization 4. Moderate sedation Coronary angiography: 1. Left main coronary artery: The LMCA is very large in caliber with distal taper of approximately 50%. 2. Left anterior descending: The LAD is a large-caliber vessel that extends to the apex. The LAD gives rise to a large caliber first septal medical doctor nuclear medicine. At the bifurcation site of the LAD and septal medical doctor nuclear medicine, there is a 30 to 40% proximal LAD stenosis. Mid LAD 50%. Distal LAD 30%. Medium caliber D1 and D2 vessels. 3. Circumflex: The circumflex is a large-caliber vessel. Ostial circumflex 80 to 90%. Mid circumflex 30 to 40%. Large OM1, OM 2, and OM 3 vessels without significant CAD. 4. Right coronary artery: The RCA is a very large and dominant vessel. Diffuse luminal irregularities throughout the mid and distal RCA of approximately 30%. There is a very large caliber PDA and large PL branch. Ostial PL 40%. Ostial acute marginal 80 to 90% with SAIDA II flow. The acute marginal is a small to medium caliber vessel. Left heart catheterization: 1. Left ventriculography was not performed. 2. Severely elevated LVEDP; LVEDP 38 mmHg. 3. No significant aortic stenosis. Right heart catheterization: 1. PA pressure 75/29 with a mean of 44 mmHg. 2. Pulmonary capillary wedge pressure elevated. V wave 53 with a mean of 38 mmHg. 3. Right ventricular pressure is elevated. RV pressure 73/5 with RVEDP of 16 mmHg. 4. Right atrial pressure is elevated. A wave 16; V wave 18; mean 12 mmHg. 5. Cardiac output via thermodilution was 3.5 L/min, with a cardiac index of 1.46 L/min/m2. Moderate sedation: 1. Sedation start time: 1537 2. Sedation end time: 1626 Impression: 1. Borderline significant taper of the LMCA for which FFR was recommended (FFR was performed by Dr. Khan and found to be 0.92, [id number]). LMCA disease is nonobstructive. 2. Severe CAD involving ostial circumflex and small to medium caliber acute marginal branch. 3. Otherwise, mild to moderate nonobstructive CAD. 4. Severely elevated left filling pressures. 5. Severe pulmonary hypertension, thought to be due to left heart failure. 6. Reduced cardiac output via thermodilution. 7. No significant aortic stenosis. Plan: 1. Images were reviewed with Dr. Khan who performed FFR of the LMCA which was found to be nonobstructive. 2. Medical management for CAD as it would not account for the degree of biventricular systolic dysfunction noted on echocardiogram. 3. Diuresis. 4. Optimize heart failure medications. Hemodynamics Rest Ao:: 149/86 Final Ao: 166/114 LV: 158/19/38 Recommendations Recommendations: Management Recommendatons (as above) Specimens Specimens: None Radiation Exposure (mGy) 1378 mGy. Fluoro time 6.6 min. Contrast (mls) 55 ml Procedural Complication(s) None Disposition PCU I attest to the content of the Intraoperative Record and any orders documented therein. Any exceptions are noted below. [facility] Card Cath Procedure Codes Cardiac Catheterization Procedure 1: Cardiovascular Cath Procedures: 66035 Coronaries & LHC (+/-LV) & RHC Moderate Sedation Procedure 1: Sedation/Anesthesia: 02173 Mod Sedation by the same physician;Init15 Min Child Age 5 & Up Procedure 2: Sedation/Anesthesia: 99288 Mod Sedation by the same physician; Ea Additio nal15 Minutes Procedure 3: Sedation/Anesthesia: 04190 Mod Sedation by the same physician; Ea [id number] Minutes PG Care Time/CCT Total # of Minutes Spent Total Time Spent with Patient: Total time spent is greater than 50% in coordination of care (as documented) at patient's floor/unit and/or counseling patient:
--- NOTE | 2020-01-29 17:04 | Post Anesthesia Assessment ---
Date of Service January 29, 2020 Post Sedation Assessment Vital Signs Temp Pulse Pulse Pulse Resp BP BP 01/29/20 12:35 36.9 C 57 L 20 161/88 H 01/29/20 07:35 75 01/29/20 07:20 36.8 C 62 18 107/63 01/29/20 02:52 36.8 C 60 24 148/98 H 01/29/20 02:22 36.5 C 59 L 22 144/100 H 01/29/20 01:00 63 18 156/114 H 01/28/20 23:36 58 L 22 148/106 H 01/28/20 23:13 01/28/20 23:07 57 L 24 01/28/20 22:47 36.8 C 58 L 18 135/94 Pulse Ox 01/29/20 12:35 100 01/29/20 07:35 01/29/20 07:20 93 01/29/20 02:52 98 01/29/20 02:22 97 01/29/20 01:00 96 01/28/20 23:36 97 01/28/20 23:13 92 01/28/20 23:07 95 01/28/20 22:47 88 L Recovery Score Activity: Moves 4 extremities Respiration: Deep Breath/Cough Circulation: +/-20% PreAnes Value Consciousness: Fully Awake Oxygen Saturation: > 92% On Room Air Discharge Sedation Level of Care: Fast Track Phase II Post Sedation Plan On clinical assessment, the patient appears to have tolerated the sedation without complications. Patient is recovering as anticipated. Patient will continue to be monitored by nursing and may be discharged when sedation discharge criteria are met per below protocol. Upon Completions of procedure up to 15 minutes continue every 5 minute vital signs and the P.A.R. score; then discharge to a Phase I or Fast Track to Phase II per the following guidelines: * Discharge Patient to appropriate Phase II area if PAR is 8 or greater or return to pre- procedure baseline. The post - procedure orders will be as directed. * If PAR score is less than 8 or not return to pre-procedure baseline then patient will follow Phase I monitoring till PAR is reached for Phase II. The Phase I may be done in procedure room or may call to secure a Phase I area. * If naloxone or flumazenil are used for reversal, hold in Phase I for continued monitoring from when last reversal dose was given for a minimum of 60 minutes or longer pending the nurse and/or physician discretion of patient condition before discharge to Phase II. Please call the Sedation Physician to re-evaluate and complete post-note for discharge to Phase II area. Do NOT discharge from procedure sedation or Phase 1 until post- sedation evaluation note is complete by procedure /sedation MD Sedation Discharge Instructions to be given to the patient at discharge to home.
[2020-01-29 17:08] LABS: iSTAT Arterial Blood Gas HCO3 28 meg/L (19-24); iSTAT Arterial Blood Gas pCO2 44 mmHg (35-46); iSTAT Arterial Blood Gas pH 7.41 (7.35-7.45); iSTAT Arterial Blood Gas pO2 < 32 mmHg (80-95); iSTAT Carbon Dioxide 29 mmol/L (24-31); iSTAT Hematocrit 45 % (42-52); iSTAT Hemoglobin 15.3 g/dl (14.0-18.0); iSTAT Potassium 3.3 mmol/L (3.3-5.0); iSTAT Sodium 143 mmol/L (135-144)
[2020-01-29] MEDS ORDERED: FUROSEMIDE 80 MG in SYRINGE 0 ML IV ONE (17:15)
--- NOTE | 2020-01-29 17:23 | Cardiac Catheterization ---
[facility] Data: Elevator Starter Cardiac Status Clinical evaluation leading to the procedure CAD Presenation: Non STEMI Anginal Classification: CCS III Heart Failure: NYHA Class: CCS IV Cardiogenic Shock within 24 Hours: No Cardiac Arrest within 24 Hours: No Imaging Studies Past 6 Months: Yes Stress Studies Past 6 Months: No Diagnostic Physicians Name: Marc Khan MD Status: Elective Closure Device Percutaneous Entry Location: Radial Closure Device: Radial Band Recommendations: Medical Therapy and/or Counseling Intraprocedure Events Significant Disection: No Perforation: No Cardiac Cath Procedure Full Procedure Date January 29, 2020 Pre-Procedure Diagnosis Pre-Procedure Diagnosis: CHF and Cardiomyopathy AUC Score AUC Score: 7 Post-Procedure Diagnosis Post-Procedure Diagnosis: Moderate CAD and Severe CAD Procedure(s) Performed Procedure(s) Performed: Fractional Flow [place] Data Collection Technician Marc Khan MD 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 Shaikh. Briefly patient found to have severe ostial circumflex disease and intermediate proximal LAD disease. Decision to proceed with FFR of prox LAD. Procedure: - LM cannulated with EBU 3.5 guide from left wrist - Laboratory Helper 50 wire placed into distal LAD - ACIST FFR placed into mid LAD across lesion. - iFR 0.99 - FFR 0.92 - Wire and catheter removed. No apparent coronary complications. Summary: 1. Moderate non-obstructive proximal LAD disease (FFR 0.92). 2. Severe ostial circumflex disease. Recommendations: - Continued diuresis, GDMT and ASCVD risk factor modification per Dr. Shaikh. Hemodynamics Rest Ao:: 157/81/116 Final Ao: 164/108/126 LV: -- Recommendations Recommendations: Medical Therapy and/or Counseling Specimens Specimens: None Radiation Exposure (mGy) 1640 Contrast (mls) 70 Fluids (cc crystalloids) Fluids (cc crystalloids): 20 Drains Drains: none Anesthesia moderate Procedural Complication(s) None Disposition PCU I attest to the content of the Intraoperative Record and any orders documented therein. Any exceptions are noted below. [facility] Card Cath Procedure Codes Cardiac Catheterization Procedure 1: Cardiovascular Cath Procedures: 61574 (Doppler) Pressure Wire Moderate Sedation Procedure 1: Sedation/Anesthesia: 24559 Mod Sedation by a different physician ;Init15 M in Child Age 5&Up PG Care Time/CCT Total # of Minutes Spent Total Time Spent with Patient: Total time spent is greater than 50% in coordination of care (as documented) at patient's floor/unit and/or counseling patient:
--- NOTE | 2020-01-29 17:28 | Electrocardiogram Report ---
Test Reason : Blood Pressure : / mmHG Vent. Rate : 055 BPM Atrial Rate : 055 BPM P-R Int : 194 ms QRS Dur : 112 ms QT Int : 558 ms P-R-T Axes : 037 066 185 degrees QTc Int : 533 ms Sinus bradycardia Possible Left atrial enlargement Anterior infarct , age undetermined T wave abnormality, consider anterior ischemia T wave abnormality, consider inferior ischemia Prolonged QT Abnormal ECG No previous ECGs available Confirmed by Pancho Shaikh ([id number]) on 01/29/2020 5:28:05 PM Referred By: Samantha SCI Confirmed By:Pancho Shaikh
--- NOTE | 2020-01-29 17:30 | Electrocardiogram Report ---
Test Reason : Blood Pressure : / mmHG Vent. Rate : 052 BPM Atrial Rate : 052 BPM P-R Int : 202 ms QRS Dur : 104 ms QT Int : 568 ms P-R-T Axes : 034 080 216 degrees QTc Int : 528 ms Sinus bradycardia Possible Left atrial enlargement Prolonged QT Abnormal ECG When compared with ECG of 28-Jan-2020 22:55, No significant change Confirmed by Pancho Shaikh ([id number]) on 01/29/2020 5:29:57 PM Referred By: Samantha ROMERO Confirmed By:Pancho Shaikh
[2020-01-29] MEDS: INSULIN ASPART 100 UNITS/ML 3 ML PEN SC SCH ×2 (18:22→20:34)
[2020-01-29] MEDS: HEPARIN SOD 5,000 UNIT/0.5 ML VIAL SQ SCH (21:36)
[2020-01-30 03:20] LABS: Hepatitis A Antibody IgM NON-REACTIVE (NON-REACTIVE); Hepatitis B Core Antibody IgM NON-REACTIVE (NON-REACTIVE)
[2020-01-30] MEDS: NITROGLYCERIN 2% OINTMENT 30GM TUBE EXT SCH ×2 (04:31→10:36)
[2020-01-30 07:05] LABS: Hematocrit (blood only) 46.4 % (42-52); Hemoglobin 14.5 g/dL (14.0-18.0); Mean Corpuscular Hemoglobin 21.7 pg (25-34); Mean Corpuscular Hgb Conc 31.3 g/dL (32-36); Mean Corpuscular Volume 69.5 fL (80-100); Mean Platelet Volume 10.4 fL (7.4-10.4); Platelet Count 236 K/uL (130-400); RDW Coefficient of Variation 17.2 % (11.5-14.5); RDW Standard Deviation 41.9 fL (36.4-46.3); Red Blood Count 6.68 M/uL (4.7-6.1); White Blood Count 5.96 K/uL (4.8-10.8)
[2020-01-30 07:16] LABS: INR 1.2 (0.9-1.1); Partial Thromboplastin Time 27.9 Seconds (21.0-31.0); Prothrombin Time 12.5 Seconds (9.0-12.0)
[2020-01-30 07:54] LABS: Calcium 8.8 mg/dl (8.5-10.1); Creatinine Clr Calc Pharmacy 55.3 ml/min; Est GFR (African American) 45.4; Est GFR (Non-African American) 39.2; Magnesium 1.9 mg/dl (1.8-2.4); Potassium 3.5 mmol/L (3.5-5.1)
[2020-01-30 07:57] LABS: Albumin Globulin Ratio 0.7 (0.9-2); Bilirubin,Total 0.7 mg/dl (0.2-1); Globulin 4.2 gm/dl (2.5-4.0); Phosphorus 3.2 mg/dl (2.5-4.9); Total Protein 7.2 gm/dl (6.4-8.2)
[2020-01-30] MEDS: INSULIN ASPART 100 UNITS/ML 3 ML PEN SC SCH ×4 (08:05→20:38)
[2020-01-30] MEDS: FUROSEMIDE 40 MG in SYRINGE 0 ML IV ONE ×2 (08:05→08:18)
[2020-01-30] MEDS: METOPROLOL TARTRATE 50 MG TAB PO SCH (08:07)
[2020-01-30] MEDS: ROSUVASTATIN CALCIUM 20 MG TAB PO SCH (08:08)
[2020-01-30] MEDS: ASPIRIN 325 MG ECTAB PO SCH (08:08)
[2020-01-30] MEDS: POTASSIUM CHLORIDE 10 MEQ TABCR PO SCH (08:08)
[2020-01-30] MEDS: INSULIN GLARGINE SOLOSTAR 100 UNITS/ML 3 ML PEN SC SCH ×2 (08:08→20:36)
[2020-01-30] MEDS: HEPARIN SOD 5,000 UNIT/0.5 ML VIAL SQ SCH ×2 (08:10→20:35)
--- NOTE | 2020-01-30 08:24 | Cardiology Progress Note ---
Date of Service January 30, 2020 Assessment & Plan (1) Acute systolic (congestive) heart failure: (2) Cardiomyopathy: (3) Elevated troponin: (4) HTN (hypertension): (5) HLD (hyperlipidemia): (6) Tobacco abuse: ASSESSMENT/PLAN: 1. Acute systolic CHF: He is not short of breath and his lungs are clear today, he still has excess fluid but I am little concerned about his dye load yesterday and his renal insufficiency. I am going to hold his Lasix this morning. I would avoid fluids. 2. Cardiomyopathy: Etiology not yet defined but it does not appear to be ischemic although he does have coronary artery disease and will need risk factor modification. We will need to look for other causes of cardiomyopathy and treat him accordingly. His blood pressure is markedly elevated I am going to switch him from metoprolol to carvedilol, he was on metoprolol as an outpatient at a higher dose according to the chart (200 mg daily). I am going to hold NAYANA inhibition for now based on his dye load yesterday and his renal insufficiency but we should try it in the future if his creatinine does not rise. 3. Elevated troponin: He does not have evidence of an acute ischemic event although his QT is prolonged and his T waves are abnormal. His troponins are low level with no particular trend. This is probably due to his presentation with heart failure. 4. Hypertension: Blood pressure remains quite elevated, carvedilol may drop his pressure more than metoprolol although that remains to be seen. I would move up fairly quickly on the carvedilol since he was on a higher outpatient dose of beta-kyle, I would try to go to at least 25 mg twice a day, even this evening if his blood pressure remains markedly elevated. We could go higher in his case, even up to 50 mg twice a day. As noted I would hold his NAYANA inhibitor for now but he will need one in the future if possible given his renal insufficiency. 5. Dyslipidemia: Agree with high-intensity statin therapy. 6. Tobacco abuse: Stop smoking. Admission and Anticipated Discharge Date Admission Date: January 29, 2020 Subjective He tells me that he is feeling well today, he is not having chest discomfort, he is not short of breath. Obviously he has not been active. Physical Exam Physical Exam: Constitutional: Alert, cooperative and in no distress. Pulmonary: Clear to auscultation bilaterally. Cardiac: Regular rhythm with no murmur, gallop or rub. Abdomen: Soft, nontender with normal bowel sounds. Extremities: +3 bilateral pitting pretibial edema. Skin: No rash, ecchymoses or petechiae. Results & Data ([facility]) Vital Signs (Past 12 Hours) Vital Signs Temp Pulse Resp BP BP Pulse Ox 01/30/20 07:32 36.6 C 83 22 176/118 H 94 01/30/20 04:00 36.6 C 75 20 160/82 H 98 01/29/20 23:23 36.2 C L 71 20 143/83 H 100 01/29/20 21:19 65 20 164/97 H 99 Laboratory Results Cardiac Enzymes 01/30/20 Range/Units 06:17 AST 252 H (15-37) U/L Coagulation 01/29/20 01/29/20 01/30/20 Range/Units 08:08 09:08 06:17 PT 12.5 H (9.0-12.0) Seconds APTT Cancelled Cancelled 27.9 CBC 01/30/20 Range/Units 06:17 WBC 5.96 (4.8-10.8) K/uL RBC 6.68 H (4.7-6.1) M/uL Hgb 14.5 (14.0-18.0) g/dL Hct 46.4 (42-52) % Plt Count 236 (130-400) K/uL Comprehensive Metabolic Panel 01/30/20 Range/Units 06:17 Sodium 143 (136-145) mmol/L Potassium 3.5 (3.5-5.1) mmol/L Chloride 106 (98-107) mmol/L Carbon Dioxide 32 (21-32) mmol/L BUN 24 H (7-18) mg/dl Creatinine 1.81 H (0.6-1.4) mg/dl Glucose 121 H (70-99) mg/dl Calcium 8.8 (8.5-10.1) mg/dl AST 252 H (15-37) U/L ALT 261 H (12-78) U/L Alkaline Phosphatase 85 (45-117) U/L Total Protein 7.2 (6.4-8.2) gm/dl Albumin 3.0 L (3.4-5.0) gm/dl Intake and Output 01/29/20 01/30/20 01/30/20 22:59 06:59 14:59 Intake Total 240 / 863.500 Output Total 2019 650 / 3400 Balance -1780 / -2536.500 -650 / -2536.500 Intake: Oral 240 / 515 Output: Urine 2019 650 / 3400 Other: Weight 114.7 kg Diagnostic Findings Telemetry: Sinus rhythm and sinus bradycardia, occasional PVCs, rare ventricular couplets. PG Care Time/CCT Total # of Minutes Spent Total Time Spent with Patient: Total time spent is greater than 50% in coordination of care (as documented) at patient's floor/unit and/or counseling patient: Coding Level of Care Code 74412 Subseq Hosp Care Lvl 3 Diagnoses Acute systolic (congestive) heart failure I50.21 Cardiomyopathy I42.9 Elevated troponin R79.89 HTN (hypertension) I10 HLD (hyperlipidemia) E78.5 Tobacco abuse Z72.0
[2020-01-30 09:00] LABS: Estimated Average Glucose 180 mg/dl; Hemoglobin A1C 7.9 % (4.5-5.6)
--- NOTE | 2020-01-30 10:10 | Hospitalist Progress Note ---
Date of Service January 30, 2020 Assessment & Plan (1) Congestive heart failure: Acute on chronic systolic CHF. Echo this admission shows EF 20-25% with global hypokinesis and regions of akinesis. Catheterization showed coronary artery disease, but not in a pattern/distribution that would explain his heart failure. As such, we are considering this non-ischemic cardiomyopathy (NICM). - Hold Lasix today for concern for renal insufficiency. - Continue carvedilol - Plan to start ACEi and spironolactone while admitted, but deferring for a few days to monitor kidney function. - Daily weights and I&Os (2) Pulmonary embolism: Initially CTA chest read as PE, but this was considered a mistake by the daytime radiologist. - Will repeat CTA or V/Q on Saturday to ensure no PE. - Hold anticoagulation at this time. (3) NSTEMI (non-ST elevated myocardial infarction): Likely demand ischemia from CHF. Troponins stable at ~0.25. No report of chest pain. - Risk factor modification: ASA, statin, beta-kyle (4) Elevated serum creatinine: Last Cr was 1.25 in 2019; however unclear what his baseline is. - Cr was 1.67 on admission. - Up to 1.8 today. - Monitor Cr with diuresis, contrast, and now catheterization (5) Type 2 diabetes mellitus: A1c is unknown. Result pending over the weekend. - Hypoglycemic on arrival and on the morning of 01/28; likely due to prior insulin administration at his institution. - Per pharmacy recs, started lower-dose Lantus 15 units BID - Sliding scale insulin - Blood sugars have been in the 110-180 range so far in the last 24 hours. Continue current insulin regimen. (6) HTN (hypertension): BP is presently 170/120. - Continue beta-kyle -> Switched to carvedilol for better BP control. - Add ACEi when able with kidney function - Diurese (7) HLD (hyperlipidemia): - Continue statin (8) DVT prophylaxis: Heparin 5,000 units SQ Q12h Admission and Anticipated Discharge Date Admission Date: January 29, 2020 Subjective No complaints today. Slept ok. No major concerns. Reports no fevers/chills, chest pain, shortness of breath, abdominal pain, nausea, or vomiting. Physical Exam Constitutional: WD/WN, vitals as above Eyes: EOM intact bilaterally; no conjunctival abnormality ENMT: external ear and nose normal, oropharynx normal Neck: trachea midline, no thyromegaly normal visual inspection Respiratory: no respiratory distress and no labored breathing Auscultation: no crackles and no wheezes Cardiovascular: Rate/Rhythm: regular rate and regular rhythm Heart Sounds: normal S1 and normal S2 Vessels: no JVD Extremities: + edema Gastrointestinal (Abdomen): Inspection/Auscultation: abdomen normal to inspection; abdomen not distended Musculoskeletal: no cyanosis or clubbing, extremities motor strength 5/5 Skin: no rashes, warm and dry Neurologic: moves all extremities and awake Psychiatric: Orientation: alert, oriented to person and cooperative Results & Data Results & Data ([facility]) Vital Signs (Past 12 Hours) Vital Signs Temp Pulse Resp BP BP Pulse Ox 01/30/20 07:32 36.6 C 83 22 176/118 H 94 01/30/20 04:00 36.6 C 75 20 160/82 H 98 01/29/20 23:23 36.2 C L 71 20 143/83 H 100 PG Care Time/CCT Total # of Minutes Spent Total Time Spent with Patient: Total time spent is greater than 50% in coordination of care (as documented) at patient's floor/unit and/or counseling patient: Coding Level of Care Code 85922 Subseq Hosp Care Lvl 3 Diagnoses Congestive heart failure I50.9 Pulmonary embolism I26.99 Acute cor pulmonale presence: without acute cor pulmonale Chronicity: acute Pulmonary embolism type: unspecified NSTEMI (non-ST elevated myocardial infarction) I21.4 Elevated serum creatinine R79.89 Type 2 diabetes mellitus E11.9 HTN (hypertension) I10 HLD (hyperlipidemia) E78.5 DVT prophylaxis Z29.9 (1) Pulmonary embolism Acute cor pulmonale presence: without acute cor pulmonale Chronicity: acute Pulmonary embolism type: unspecified Qualified Code(s): I26.99 - Other pulmonary embolism without acute cor pulmonale
[2020-01-30] MEDS ORDERED: carvediloL 12.5 MG TAB PO ONE (12:04)
[2020-01-30] MEDS ORDERED: carvediloL 12.5 MG TAB PO SCH (21:00)
[2020-01-31 06:18] LABS: Hematocrit (blood only) 44.5 % (42-52); Hemoglobin 13.8 g/dL (14.0-18.0); Mean Corpuscular Hemoglobin 21.6 pg (25-34); Mean Corpuscular Volume 69.7 fL (80-100); Mean Platelet Volume 10.1 fL (7.4-10.4); Platelet Count 214 K/uL (130-400); RDW Coefficient of Variation 17.1 % (11.5-14.5); RDW Standard Deviation 41.9 fL (36.4-46.3); Red Blood Count 6.38 M/uL (4.7-6.1); White Blood Count 4.28 K/uL (4.8-10.8)
[2020-01-31 07:00] LABS: Albumin Level 2.8 gm/dl (3.4-5.0); BUN Creatinine Ratio 16.3 (10-20); Calcium 8.4 mg/dl (8.5-10.1); Creatinine Clr Calc Pharmacy 61.1 ml/min; Est GFR (African American) 51.2; Est GFR (Non-African American) 44.2; Potassium 3.4 mmol/L (3.5-5.1)
[2020-01-31 07:02] LABS: Albumin Globulin Ratio 0.7 (0.9-2); Bilirubin,Total 0.6 mg/dl (0.2-1); Phosphorus 3.6 mg/dl (2.5-4.9); Total Protein 6.8 gm/dl (6.4-8.2)
--- NOTE | 2020-01-31 08:05 | Cardiology Progress Note ---
Date of Service January 31, 2020 Assessment & Plan (1) Acute systolic (congestive) heart failure: (2) Cardiomyopathy: (3) Elevated troponin: (4) HTN (hypertension): (5) HLD (hyperlipidemia): (6) Tobacco abuse: ASSESSMENT/PLAN: 1. Acute systolic CHF: He will need ongoing duresis, I held his lasix yesterday due to the dye load the day before. His kidney function is back to his current admission value, restarting it should be safe now. 2. Cardiomyopathy: Etiology not yet defined but it does not appear to be ischemic although he does have coronary artery disease and will need risk factor modification. We will need to look for other causes of cardiomyopathy and treat him accordingly. His blood pressure remains elevated I did switch him from metoprolol to carvedilol, he was on metoprolol as an outpatient at a higher dose according to the chart (200 mg daily). I did not restart his NAYANA inhibitor with his renal insufficiency but we should try it soon if his creatinine does not rise. 3. Elevated troponin: He does not have evidence of an acute ischemic event although his QT is prolonged and his T waves are abnormal. His troponins are low level with no particular trend. This is probably due to his presentation with heart failure. 4. Hypertension: Blood pressure remains quite elevated, carvedilol may drop his pressure more than metoprolol although that remains to be seen. I would move up fairly quickly on the carvedilol since he was on a higher outpatient dose of metoprolol as an outpatient, I would try to go to at least 25 mg twice a day, even this evening if his blood pressure remains elevated. We could go higher in his case, even up to 50 mg twice a day. As noted I did hold his NAYANA inhibitor for now but he will need one in the future if possible given his renal insufficiency. 5. Dyslipidemia: Agree with high-intensity statin therapy. 6. Tobacco abuse: Stop smoking. 7. NATHALIE: His creatinine is elevated and did not bump much with his dye load. His creatinine in May 2019 was 1.25 so this may be his new normal or it may improve with diuresis. (7) Acute kidney injury: Admission and Anticipated Discharge Date Admission Date: January 29, 2020 Subjective He has no specific complaints today, no chest discomfort. Physical Exam Physical Exam: Constitutional: Alert, cooperative and in no distress. Pulmonary: Clear to auscultation bilaterally. Cardiac: Regular rhythm with no murmur, gallop or rub. Abdomen: Soft, nontender with normal bowel sounds. Extremities: +3 bilateral pitting pretibial edema. Skin: No rash, ecchymoses or petechiae. Results & Data ([facility]) Vital Signs (Past 12 Hours) Vital Signs Temp Pulse Pulse Resp BP Pulse Ox 01/31/20 07:30 36.5 C 76 20 168/94 H 96 01/31/20 04:52 36.4 C L 72 20 158/84 H 96 01/30/20 23:46 36.4 C L 76 20 152/78 H 98 Laboratory Results Cardiac Enzymes 01/28/20 01/29/20 01/30/20 Range/Units 23:15 06:04 06:17 Creatinine 1.67 H 1.63 H 1.81 H (0.6-1.4) mg/dl AST (15-37) U/L 01/31/20 Range/Units 06:02 Creatinine 1.64 H (0.6-1.4) mg/dl AST 105 H (15-37) U/L CBC 01/31/20 Range/Units 06:02 WBC 4.28 L (4.8-10.8) K/uL RBC 6.38 H (4.7-6.1) M/uL Hgb 13.8 L (14.0-18.0) g/dL Hct 44.5 (42-52) % Plt Count 214 (130-400) K/uL Comprehensive Metabolic Panel 01/31/20 Range/Units 06:02 Sodium 143 (136-145) mmol/L Potassium 3.4 L (3.5-5.1) mmol/L Chloride 107 (98-107) mmol/L Carbon Dioxide 30 (21-32) mmol/L BUN 27 H (7-18) mg/dl Creatinine 1.64 H (0.6-1.4) mg/dl Glucose 86 (70-99) mg/dl Calcium 8.4 L (8.5-10.1) mg/dl AST 105 H (15-37) U/L ALT 179 H (12-78) U/L Alkaline Phosphatase 74 (45-117) U/L Total Protein 6.8 (6.4-8.2) gm/dl Albumin 2.8 L (3.4-5.0) gm/dl Diagnostic Findings Intake and Output 01/30/20 01/31/20 01/31/20 22:59 06:59 14:59 Intake Total 120 / 395 Output Total 200 / 200 Balance 120 / 219 -200 / -200 Intake: Oral 120 / 395 Output: Urine 200 / 200 Telemetry: Care Time/CCT Total # of Minutes Spent Total Time Spent with Patient: Total time spent is greater than 50% in coordination of care (as documented) at patient's floor/unit and/or counseling patient: Coding Level of Care Code 61608 Subseq Hosp Care Lvl 3 Diagnoses Acute systolic (congestive) heart failure I50.21 Cardiomyopathy I42.9 Elevated troponin R79.89 HTN (hypertension) I10 HLD (hyperlipidemia) E78.5 Tobacco abuse Z72.0 Acute kidney injury N17.9
[2020-01-31] MEDS: INSULIN ASPART 100 UNITS/ML 3 ML PEN SC SCH ×4 (08:59→21:31)
[2020-01-31] MEDS: HEPARIN SOD 5,000 UNIT/0.5 ML VIAL SQ SCH ×2 (09:00→21:35)
[2020-01-31] MEDS: INSULIN GLARGINE SOLOSTAR 100 UNITS/ML 3 ML PEN SC SCH ×2 (09:00→21:35)
[2020-01-31] MEDS: carvediloL 12.5 MG TAB PO SCH ×2 (09:01→21:33)
[2020-01-31] MEDS: ASPIRIN 81 MG ECTAB PO SCH (09:02)
[2020-01-31] MEDS: ROSUVASTATIN CALCIUM 20 MG TAB PO SCH (09:02)
--- NOTE | 2020-01-31 15:31 | Hospitalist Progress Note ---
Date of Service January 31, 2020 Assessment & Plan (1) Congestive heart failure: Acute on chronic systolic CHF. Echo this admission shows EF 20-25% with global hypokinesis and regions of akinesis. Catheterization showed coronary artery disease, but not in a pattern/distribution that would explain his heart failure. As such, we are considering this non-ischemic cardiomyopathy (NICM). - Holding Lasix today for renal insufficiency. - Continue carvedilol (titrate up to 18.75 today) - start entresto this evening (will have been 48hrs after dye load from cath, and Cr has been [id number]) - f/u BMP in AM. - Daily weights and I&Os (2) Pulmonary embolism: Initially CTA chest read as PE, but this was considered a mistake by the daytime radiologist. - ordered repeat CTA or V/Q on Saturday to ensure no PE. - Hold anticoagulation at this time. (is on proph dosing of SQ heparin) (3) NSTEMI (non-ST elevated myocardial infarction): Likely demand ischemia from CHF. Troponins stable at ~0.25. denies anginal complaints today - Risk factor modification: ASA, statin, beta-kyle (4) Elevated serum creatinine: Last Cr was 1.25 in 2019; however unclear what his baseline is. certainly w EF being so low an element of cardiorenal would be expected - Cr was 1.67 on admission now back to 1.64 (with a peak of 1.81) - trial of entresto - but follow Cr closely (5) Type 2 diabetes mellitus: A1c 7.9% -sugars have been reasonable inpatient. continue current regimen. often diffi cult for control in custodial system since limited diet choices. (6) HTN (hypertension): still uncontrolled - and with low EF, afterload reduction would be helpful -- increase coreg, start entresto (follow Cr) (7) HLD (hyperlipidemia): - Continue statin (8) DVT prophylaxis: Heparin 5,000 units SQ Q12h (9) Discharge planning issues: VQ tomorrow, need to get better BP control and ensure tolerates entresto. if VQ negative and creatinine stays stable/continues to improve, then hopefully return to custodial (?with short stay in infirm[facility]) by ~02/01 Admission and Anticipated Discharge Date Admission Date: January 29, 2020 Subjective feeling ok overall no cp no sob. not any orthopnea - laying flat when i see him. no complaints whatsoever,although fairly limited historian. guards note he has posed no issues later passing his room he is sitting up on edge of bed Review of Systems Review of Systems: All systems reviewed & are unremarkable except as noted in HPI & below Physical Exam Physical Exam: gen aao nad heent nc at mmm breathing unlabored no accessory muscles good effort skin no rashes no pallor or icterus. neuro no focal d eficits. Results & Data Results & Data ([facility]) Vital Signs (Past 12 Hours) Vital Signs Temp Pulse Pulse Resp BP BP Pulse Ox 01/31/20 15:09 97.5 F L 68 20 145/88 H 91 01/31/20 12:03 98.4 F 70 20 164/114 H 90 01/31/20 07:30 97.7 F 76 20 168/94 H 96 01/31/20 04:52 97.5 F L 72 20 158/84 H 96 PG Care Time/CCT Total # of Minutes Spent Total Time Spent with Patient: Total time spent is greater than 50% in coordination of care (as documented) at patient's floor/unit and/or counseling patient: Coding Level of Care Code 07910 Subseq Hosp Care Lvl 3 Diagnoses Congestive heart failure I50.9 Pulmonary embolism I26.99 Acute cor pulmonale presence: without acute cor pulmonale Chronicity: acute Pulmonary embolism type: unspecified NSTEMI (non-ST elevated myocardial infarction) I21.4 Elevated serum creatinine R79.89 Type 2 diabetes mellitus E11.9 HTN (hypertension) I10 HLD (hyperlipidemia) E78.5 DVT prophylaxis Z29.9 Discharge planning issues Z02.9 (1) Pulmonary embolism Acute cor pulmonale presence: without acute cor pulmonale Chronicity: acute Pulmonary embolism type: unspecified Qualified Code(s): I26.99 - Other pulmonary embolism without acute cor pulmonale
[2020-01-31] MEDS ORDERED: lisinopriL 5 MG TAB PO SCH (21:00)
[2020-01-31] MEDS: SACUBITRIL-VALSARTAN 24-26 MG TAB PO SCH (22:39)
[2020-02-01 06:05] LABS: Basophils # (auto) 0.02 K/uL (0-0.2); Basophils % (auto) 0.4 %; Eosinophils # (auto) 0.23 K/uL (0-0.5); Hematocrit (blood only) 46.4 % (42-52); Hemoglobin 14.8 g/dL (14.0-18.0); Lymphocytes # (auto) 1.74 K/uL (1.2-3.4); Lymphocytes % (auto) 37.7 %; Mean Corpuscular Hemoglobin 22.1 pg (25-34); Mean Corpuscular Hgb Conc 31.9 g/dL (32-36); Mean Corpuscular Volume 69.2 fL (80-100); Monocytes # (auto) 0.35 K/uL (0.11-0.59); Monocytes % (auto) 7.6 %; Neutrophils # (auto) 2.28 K/uL (1.4-6.5); Neutrophils % (auto) 49.3 %; Platelet Count 215 K/uL (130-400); RDW Coefficient of Variation 16.8 % (11.5-14.5); RDW Standard Deviation 40.6 fL (36.4-46.3); Red Blood Count 6.71 M/uL (4.7-6.1); White Blood Count 4.62 K/uL (4.8-10.8)
[2020-02-01 06:24] LABS: BUN Creatinine Ratio 16.7 (10-20); Calcium 8.2 mg/dl (8.5-10.1); Creatinine Clr Calc Pharmacy 68.6 ml/min; Est GFR (African American) 58.9; Est GFR (Non-African American) 50.8; Potassium 3.2 mmol/L (3.5-5.1)
[2020-02-01 06:26] LABS: Microcytosis Present
--- NOTE | 2020-02-01 08:32 | Nuclear Medicine Report ---
Study: Perfusion lung scan HISTORY: Pulmonary embolus FINDINGS: Study is performed following the administration of 5.5 mCi technetium 99m MAA. There is appropriate activity within the central lung regions bilaterally. There is a small segmental defect posterior aspect left lower lobe no additional defects are identifi ed. IMPRESSION: High probability of pulmonary embolus superior segment left lower lobe. Electronically signed by: Jose Woodard M.D. 02/01/2020 8:30 AM
[2020-02-01] MEDS: INSULIN ASPART 100 UNITS/ML 3 ML PEN SC SCH ×4 (08:57→20:29)
[2020-02-01] MEDS: INSULIN GLARGINE SOLOSTAR 100 UNITS/ML 3 ML PEN SC SCH (08:58)
[2020-02-01] MEDS: SACUBITRIL-VALSARTAN 24-26 MG TAB PO SCH ×2 (08:59→20:37)
[2020-02-01] MEDS: carvediloL 12.5 MG TAB PO SCH ×2 (08:59→20:38)
[2020-02-01] MEDS: ASPIRIN 81 MG ECTAB PO SCH (09:00)
[2020-02-01] MEDS: ROSUVASTATIN CALCIUM 20 MG TAB PO SCH (09:01)
--- NOTE | 2020-02-01 10:27 | Cardiology Progress Note ---
Date of Service February 01, 2020 Assessment & Plan (1) Acute systolic (congestive) heart failure: (2) Cardiomyopathy: (3) Elevated troponin: (4) HTN (hypertension): (5) HLD (hyperlipidemia): (6) Tobacco abuse: ASSESSMENT/PLAN: 1. Acute systolic CHF: Overall seems fairly well compensated. He was lying flat in bed without dyspnea his lung exam was relatively benign. Does have some evidence of peripheral edema and he will be administered additional diuretic doses today. He had some hypokalemia at baseline today and this will need to be repleted 1st. Renal function appears to have improved and he is likely at his baseline. Will monitor this with additional diuretic administration. 2. Cardiomyopathy: Etiology not yet defined but it does not appear to be ischemic although he does have coronary artery disease and will need risk factor modification. Most likely related to longstanding uncontrolled hypertension. We will check iron studies, thyroid and HIV. Hepatitis panel negative. He does have significant hypertrophy. At some point an MRI may be of value in order to characterize the myocardium and eliminate infiltrative disease as an etiology. 3. Elevated troponin: Not related to acute coronary syndrome 4. Hypertension: Blood pressure improved. We can continue to titrate his carvedilol and see how he tolerates his current dose of Entresto. Spironolactone would also be an attractive addition to his antihypertensive regimen once were confident his renal function has stabilized. 5. Dyslipidemia: Agree with high-intensity statin therapy. 6. Tobacco abuse: Stop smoking. 7. NATHALIE: He appears to be back to baseline. I think once the patient's blood pressure is well controlled and he appears euvolemic we could start the discharge process. His degree of LV dysfunction puts him in a category people who likely due benefit from an ICD as primary pr evention. However, he has not had an adequate trial of medical therapy so far. I do not believe he requires a life vest at the time of discharge. (7) Acute kidney injury: Admission and Anticipated Discharge Date Admission Date: January 29, 2020 Subjective This morning the patient claims to be feeling well. He denies any breathing difficulty. No chest pain. He is not aware of any swelling in his lower extremities. He denied dizziness or sense of palpitation. Review of Systems Review of Systems: Per HPI Physical Exam Physical Exam: The patient is alert and oriented. Mood and affect appeared normal. He answered all questions appropriately. Lying flat in bed HEENT: Pupils are equal and reactive to light and accommodation. Extraocular movements are intact. The sclerae are anicteric. Neuro: Cranial nerves intact Neck: Patient's neck is supple. He has palpable carotid pulses bilaterally without bruits on auscultation. There is no evidence of jugular venous distention. The thyroid is not enlarged. Lungs: Clear to auscultation bilaterally. He has good air movement without use of accessory muscles. No rales wheezes or rhonchi. Cardiac: Heart demonstrates a regular rate and rhythm. Normal S1 and S2. No murmurs on examination. Pulses: The patient has palpable radial pulses bilaterally that are equal in intensity Extremities: There was no evidence of hypoperfusion. There is no cyanosis or clubbing. Mild bilateral lower extremity edema. Skin: I did not appreciate any rashes on examination today. Results & Data ([facility]) Vital Signs (Past 12 Hours) Vital Signs Temp Pulse Pulse Pulse Resp BP Pulse Ox 02/01/20 07:41 164/86 H 02/01/20 07:40 61 02/01/20 07:18 36.5 C 56 L 20 176/109 H 96 02/01/20 04:00 36.4 C L 81 16 126/58 L 94 02/01/20 00:00 36.6 C 62 16 140/82 99 Laboratory Results Abnormal Lab Results 01/31/20 01/31/20 01/31/20 11:22 15:55 20:36 WBC RBC Hgb Hct MCV MCH MCHC RDW Std Deviation RDW Coeff of Malina Plt Count MPV Immature Gran % (Auto) Neut % (Auto) Lymph % (Auto) [place] % (Auto) Eos % (Auto) Baso % (Auto) Immature Gran # (Auto) Neut # (Auto) Lymph # (Auto) [place] # (Auto) Eos # (Auto) Baso # (Auto) Microcytosis Sodium Potassium Chloride Carbon Dioxide Anion Gap BUN Creatinine Est Cr Clr Drug Dosing Est GFR ( Amer) Est GFR (Non-Af Amer) BUN/Creatinine Ratio Glucose POC Glucose 203 H 161 H 137 H Calcium Triglycerides Cholesterol LDL Cholesterol, Calc VLDL Cholesterol, Calc HDL Cholesterol Cholesterol/HDL Ratio 02/01/20 02/01/20 02/01/20 05:45 05:45 07:15 WBC 4.62 L RBC 6.71 H Hgb 14.8 Hct 46.4 MCV 69.2 L MCH 22.1 L MCHC 31.9 L RDW Std Deviation 40.6 RDW Coeff of Malina 16.8 H Plt Count 215 MPV 10.0 Immature Gran % (Auto) 0.0 Neut % (Auto) 49.3 Lymph % (Auto) 37.7 [place] % (Auto) 7.6 Eos % (Auto) 5.0 Baso % (Auto) 0.4 Immature Gran # (Auto) 0.00 Neut # (Auto) 2.28 Lymph # (Auto) 1.74 [place] # (Auto) 0.35 Eos # (Auto) 0.23 Baso # (Auto) 0.02 Microcytosis Present Sodium 140 Potassium 3.2 L Chloride 108 H Carbon Dioxide 28 Anion Gap 4.0 BUN 24 H Creatinine 1.46 H Est Cr Clr Drug Dosing 68.6 Est GFR ( Amer) 58.9 Est GFR (Non-Af Amer) 50.8 BUN/Creatinine Ratio 16.7 Glucose 136 H POC Glucose 118 H Calcium 8.2 L Triglycerides 106 Cholesterol 132 LDL Cholesterol, Calc 81 VLDL Cholesterol, Calc 21 HDL Cholesterol 30 Cholesterol/HDL Ratio 4 Diagnostic Findings The Q scan performed this morning suggested high probability PE in the left superior lung. PG Care Time/CCT Total # of Minutes Spent Total Time Spent with Patient: Total time spent is greater than 50% in coordination of care (as documented) at patient's floor/unit and/or counseling patient: Coding Level of Care Code 77925 Subseq Hosp Care Lvl 2 Diagnoses Acute systolic (congestive) heart failure I50.21 Cardiomyopathy I42.9 Elevated troponin R79.89 HTN (hypertension) I10 HLD (hyperlipidemia) E78.5 Tobacco abuse Z72.0 Acute kidney injury N17.9
[2020-02-01] MEDS: APIXABAN 5 MG TABLET PO SCH ×2 (12:15→20:38)
--- NOTE | 2020-02-01 12:22 | Hospitalist Progress Note ---
Date of Service February 01, 2020 Assessment & Plan (1) Congestive heart failure: Acute on chronic systolic CHF. Echo this admission shows EF 20-25% with global hypokinesis and regions of akinesis. Catheterization showed coronary artery disease, but not in a pattern/distribution that would explain his heart failure. As such, we are considering this non-ischemic cardiomyopathy (NICM). - Continue Lasix 40 mg IV daily - Continue carvedilol, Entresto - Likely add spironolactone as outpatient - Daily weights and I&Os -> Net negative 1.6L in last 24 hours. Wt. down 6 kg from admission. - Will get ferritin, HIV (consented), TSH to look for other causes of cardiomyopathy. Consider cardiac MR as outpatient to be sure amyloid or other infiltrate disease is not the cause. (2) Pulmonary embolism: Initially CTA chest read as PE, but this was considered a mistake by the daytime radiologist. However, V/Q on 01/31 indicated high probability of PE. - Started Eliquis 10 mg PO BID on 01/31 for PE (3) NSTEMI (non-ST elevated myocardial infarction): Likely demand ischemia from CHF. Troponins stable at ~0.25. No report of chest pain. - Risk factor modification: ASA, statin, beta-kyle (4) Elevated serum creatinine: Last Cr was 1.25 in 2019; however unclear what his baseline is. - Cr was 1.67 on admission; up to 1.8 highest. - Down to 1.45 today; possibly new baseline. (5) Type 2 diabetes mellitus: A1c is 7.9% this admission. - Hypoglycemic on arrival and on the morning of 01/28; likely due to prior insulin administration at his institution. - Per pharmacy recs, started lower-dose Lantus 15 units BID - Sliding scale insulin - Blood sugars have been in the 110-180 range so far in the last 24 hours. Continue current insulin regimen. (6) HTN (hypertension): BP is presently 140/90. - Continue carvedilol & Entresto -> Titrate as able (7) HLD (hyperlipidemia): - Continue statin (8) DVT prophylaxis: Heparin 5,000 units SQ Q12h Admission and Anticipated Discharge Date Admission Date: January 29, 2020 Subjective Doing well today. No shortness of breath, no cough. Feels the legs are feeling better. Reports no fevers/chills, chest pain, shortness of breath, abdominal pain, nausea, or vomiting. Physical Exam Constitutional: WD/WN, vitals as above Eyes: EOM intact bilaterally; no conjunctival abnormality ENMT: external ear and nose normal, oropharynx normal Neck: trachea midline, no thyromegaly normal visual inspection Respiratory: no respiratory distress and no labored breathing Auscultation: no crackles and no wheezes Cardiovascular: Rate/Rhythm: regular rate and regular rhythm Heart Sounds: normal S1 and normal S2 Vessels: no JVD Extremities: + edema Gastrointestinal (Abdomen): Inspection/Auscultation: abdomen normal to inspection; abdomen not distended Musculoskeletal: no cyanosis or clubbing, extremities motor strength 5/5 Skin: no rashes, warm and dry Neurologic: moves all extremities and awake Psychiatric: Orientation: alert, oriented to person and cooperative Results & Data Results & Data ([facility]) Vital Signs (Past 12 Hours) Vital Signs Temp Pulse Pulse Pulse Resp BP Pulse Ox 02/01/20 11:07 36.5 C 69 18 138/89 93 02/01/20 07:41 164/86 H 02/01/20 07:40 61 02/01/20 07:18 36.5 C 56 L 20 176/109 H 96 02/01/20 04:00 36.4 C L 81 16 126/58 L 94 PG Care Time/CCT Total # of Minutes Spent Total Time Spent with Patient: Total time spent is greater than 50% in coordination of care (as documented) at patient's floor/unit and/or counseling patient: Coding Level of Care Code 18816 Subseq Hosp Care Lvl 3 Diagnoses Congestive heart failure I50.9 Pulmonary embolism I26.99 Acute cor pulmonale presence: without acute cor pulmonale Chronicity: acute Pulmonary embolism type: unspecified NSTEMI (non-ST elevated myocardial infarction) I21.4 Elevated serum creatinine R79.89 Type 2 diabetes mellitus E11.9 HTN (hypertension) I10 HLD (hyperlipidemia) E78.5 DVT prophylaxis Z29.9 (1) Pulmonary embolism Acute cor pulmonale presence: without acute cor pulmonale Chronicity: acute Pulmonary embolism type: unspecified Qualified Code(s): I26.99 - Other pulmonary embolism without acute cor pulmonale
[2020-02-01] MEDS ORDERED: FUROSEMIDE 40 MG in SYRINGE 0 ML IV ONE (12:30)
[2020-02-01] MEDS: POTASSIUM CHLORIDE 20 MEQ TABCR PO SCH ×2 (13:06→20:37)
[2020-02-01] MEDS: HEPARIN SOD 5,000 UNIT/0.5 ML VIAL SQ SCH (14:44)
[2020-02-02 06:46] LABS: Hemoglobin 15.5 g/dL (14.0-18.0); Mean Corpuscular Hemoglobin 21.8 pg (25-34); Mean Corpuscular Hgb Conc 31.6 g/dL (32-36); Mean Corpuscular Volume 68.9 fL (80-100); Platelet Count 193 K/uL (130-400); RDW Coefficient of Variation 17.4 % (11.5-14.5); RDW Standard Deviation 40.9 fL (36.4-46.3); Red Blood Count 7.11 M/uL (4.7-6.1); White Blood Count 4.46 K/uL (4.8-10.8)
[2020-02-02 07:22] LABS: Albumin Level 2.8 gm/dl (3.4-5.0); Calcium 8.2 mg/dl (8.5-10.1); Creatinine Clr Calc Pharmacy 70.8 ml/min; Est GFR (African American) 62.5; Est GFR (Non-African American) 53.9; Potassium 3.7 mmol/L (3.5-5.1)
[2020-02-02 07:26] LABS: Albumin Globulin Ratio 0.7 (0.9-2); Bilirubin,Total 0.6 mg/dl (0.2-1); Globulin 4.1 gm/dl (2.5-4.0); Thyroid Stimulating Hormone 1.2 uIu/ml (0.300-4.500); Total Protein 6.9 gm/dl (6.4-8.2)
[2020-02-02] MEDS: INSULIN ASPART 100 UNITS/ML 3 ML PEN SC SCH ×4 (08:05→20:43)
[2020-02-02] MEDS: carvediloL 12.5 MG TAB PO SCH (08:07)
[2020-02-02] MEDS: ASPIRIN 81 MG ECTAB PO SCH (08:08)
[2020-02-02] MEDS: ROSUVASTATIN CALCIUM 20 MG TAB PO SCH (08:08)
[2020-02-02] MEDS: APIXABAN 5 MG TABLET PO SCH ×2 (08:08→19:51)
[2020-02-02] MEDS: SACUBITRIL-VALSARTAN 24-26 MG TAB PO SCH ×2 (08:09→19:50)
[2020-02-02] MEDS ORDERED: INSULIN GLARGINE SOLOSTAR 100 UNITS/ML 3 ML PEN SC SCH (09:00)
--- NOTE | 2020-02-02 09:43 | Cardiology Progress Note ---
Date of Service February 02, 2020 Assessment & Plan (1) Acute systolic (congestive) heart failure: (2) Cardiomyopathy: (3) Elevated troponin: (4) HTN (hypertension): (5) HLD (hyperlipidemia): (6) Tobacco abuse: ASSESSMENT/PLAN: 1. Acute systolic CHF: He appears to be doing well from the standpoint. He diuresed nicely yesterday. I believe he could benefit from additional dose of diuretic today. Renal function was stable. At some point he will transition to an oral diuretic. He may get by with simply 20 milligrams of Lasix daily. 2. Cardiomyopathy: No defined etiology. Additional serum studies performed yesterday. He is on Entresto and carvedilol. 3. Elevated troponin: Not related to acute coronary syndrome 4. Hypertension: I would increase his carvedilol today. If that is unsuccessful at controlling his blood pressure than an increase in his Entresto tomorrow would be reasonable. If he still has persistently elevated blood pressures than the addition of spironolactone also seems like a good idea. We will need to monitor his renal function closely. 5. Dyslipidemia: Agree with high-intensity statin therapy. 6. Tobacco abuse: Stop smoking. 7. NATHALIE: He appears to be back to baseline. (7) Acute kidney injury: Admission and Anticipated Discharge Date Admission Date: January 29, 2020 Subjective This morning patient claims to be feeling well. He denied breathing trouble. He has been up to the commode on several occasions without breathing difficulty or dizziness. No sense of palpitations. No chest discomfort. Review of Systems Review of Systems: Per HPI Physical Exam Physical Exam: The patient is alert and oriented. Mood and affect appeared normal. He answered all questions appropriately. Lying flat in bed HEENT: Pupils are equal and reactive to light and accommodation. Extraocular movements are intact. The sclerae are anicteric. Neuro: Cranial nerves intact Neck: Patient's neck is supple. He has palpable carotid pulses bilaterally without bruits on auscultation. There is no evidence of jugular venous distention. The thyroid is not enlarged. Lungs: Clear to auscultation bilaterally. He has good air movement without use of accessory muscles. No rales wheezes or rhonchi. Cardiac: Heart demonstrates a regular rate and rhythm. Normal S1 and S2. No murmurs on examination. Pulses: The patient has palpable radial pulses bilaterally that are equal in intensity Extremities: There was no evidence of hypoperfusion. There is no cyanosis or clubbing. Mild bilateral lower extremity edema. Skin: I did not appreciate any rashes on examination today. Results & Data ([facility]) Vital Signs (Past 12 Hours) Vital Signs Temp Pulse Pulse Resp BP Pulse Ox 02/02/20 07:12 36.7 C 70 20 174/116 H 96 02/02/20 07:10 70 02/02/20 03:21 36.8 C 65 18 158/92 H 92 02/01/20 23:24 36.8 C 56 L 18 143/83 H 94 02/01/20 22:55 68 Laboratory Results Abnormal Lab Results 01/29/20 02/01/20 02/01/20 00:01 11:02 16:39 WBC RBC Hgb Hct MCV MCH MCHC RDW Std Deviation RDW Coeff of Malina Plt Count MPV Sodium Potassium Chloride Carbon Dioxide Anion Gap BUN Creatinine Est Cr Clr Drug Dosing Est GFR ( Amer) Est GFR (Non-Af Amer) BUN/Creatinine Ratio Glucose POC Glucose 135 H 183 H Calcium Magnesium Iron TIBC Transferrin Transferrin % Sat Total Bilirubin AST ALT Alkaline Phosphatase Total Protein Albumin Globulin Albumin/Globulin Ratio Homocysteine 10.7 TSH HIV 1&2 Ab/P24 Ag 4thGn 02/01/20 02/02/20 02/02/20 20:19 06:22 06:22 WBC 4.46 L RBC 7.11 H Hgb 15.5 Hct 49.0 MCV 68.9 L MCH 21.8 L MCHC 31.6 L RDW Std Deviation 40.9 RDW Coeff of Malina 17.4 H Plt Count 193 MPV 10.0 Sodium 140 Potassium 3.7 D Chloride 109 H Carbon Dioxide 27 Anion Gap 4.0 BUN 21 H Creatinine 1.39 Est Cr Clr Drug Dosing 70.8 Est GFR ( Amer) 62.5 Est GFR (Non-Af Amer) 53.9 BUN/Creatinine Ratio 15.0 Glucose 167 H POC Glucose 129 H Calcium 8.2 L Magnesium 2.0 Iron 43 TIBC 361 Transferrin 258 Transferrin % Sat 12 L Total Bilirubin 0.6 AST 59 H ALT 132 H Alkaline Phosphatase 75 Total Protein 6.9 Albumin 2.8 L Globulin 4.1 H Albumin/Globulin Ratio 0.7 L Homocysteine TSH 1.200 HIV 1&2 Ab/P24 Ag 4thGn 02/02/20 02/02/20 06:22 07:10 WBC RBC Hgb Hct MCV MCH MCHC RDW Std Deviation RDW Coeff of Malina Plt Count MPV Sodium Potassium Chloride Carbon Dioxide Anion Gap BUN Creatinine Est Cr Clr Drug Dosing Est GFR ( Amer) Est GFR (Non-Af Amer) BUN/Creatinine Ratio Glucose POC Glucose 147 H Calcium Magnesium Iron TIBC Transferrin Transferrin % Sat Total Bilirubin AST ALT Alkaline Phosphatase Total Protein Albumin Globulin Albumin/Globulin Ratio Homocysteine TSH HIV 1&2 Ab/P24 Ag 4thGn Neg PG Care Time/CCT Total # of Minutes Spent Total Time Spent with Patient: Total time spent is greater than 50% in coordination of care (as documented) at patient's floor/unit and/or counseling patient: Coding Level of Care Code 58003 Subseq Hosp Care Lvl 2 Diagnoses Acute systolic (congestive) heart failure I50.21 Cardiomyopathy I42.9 Elevated troponin R79.89 HTN (hypertension) I10 HLD (hyperlipidemia) E78.5 Tobacco abuse Z72.0 Acute kidney injury N17.9
[2020-02-02] MEDS ORDERED: carvediloL 6.25 MG TAB PO ONE (10:15)
[2020-02-02 16:04] LABS: Anti Cardiolipin Ab IgG <14 GPL; Anti Cardiolipin Ab IgM <12 MPL; Anti-Cardiolipin Ab IgA <11 APL; Anti-Thrombin III Activity 88 % activity (80-120); B2 Glycoprotein IgA <9 SAU (<=20); B2 Glycoprotein IgG <9 SGU (<=20); B2 Glycoprotein IgM <9 SMU (<=20); PTT LA Screen 37 sec (<=40); Protein S Functional(Activity) 77 % (70-150)
[2020-02-02] MEDS ORDERED: AMLODIPINE BESYLATE 5 MG TAB PO ONE (16:08)
[2020-02-02] MEDS: carvediloL 25 MG TAB PO SCH (19:51)
[2020-02-02] MEDS ORDERED: AMLODIPINE BESYLATE 5 MG TAB PO SCH (20:00)
[2020-02-02] MEDS: INSULIN GLARGINE SOLOSTAR 100 UNITS/ML 3 ML PEN SC SCH (20:43)
[2020-02-02] MEDS ORDERED: carvediloL 25 MG TAB PO SCH (21:00)
--- NOTE | 2020-02-02 21:40 | Hospitalist Progress Note ---
Date of Service February 02, 2020 Assessment & Plan (1) Acute systolic (congestive) heart failure: Patient is admitted with Acute systolic congestive heart failure. Patient has responded to Iv lasix. Will continue IV lasix and monitor. (2) Pulmonary embolism: Initially CTA chest read as PE, but this was considered a mistake by the daytime radiologist. However, V/Q on 01/31 indicated high probability of PE. - Started Eliquis 10 mg PO BID on 01/31 for PE (3) Elevated serum creatinine: Acute kidney failure likely secondary to acute systolic CHF. continues to improve. will monitor. (4) Type 2 diabetes mellitus: A1c is 7.9% this admission. - Hypoglycemic on arrival and on the morning of 01/28; likely due to prior insulin administration at his institution. - Per pharmacy recs, started lower-dose Lantus 15 units BID - Sliding scale insulin - Blood sugars have been in the 110-180 range so far in the last 24 hours. Continue current insulin regimen. (5) HTN (hypertension): BP is presently 140/90. - Continue carvedilol & Entresto -> Titrate as able (6) HLD (hyperlipidemia): - Continue statin (7) DVT prophylaxis: Heparin 5,000 units SQ Q12h Admission and Anticipated Discharge Date Admission Date: January 29, 2020 Subjective 64 yo male reports feeling well. He states he is breathing better. He still has some SOB at rest, he is close to his baseline. Review of Systems Review of Systems: All systems reviewed & are unremarkable except as noted in HPI & below Physical Exam Physical Exam: Constitutional: WD/WN, vitals as above Eyes: EOM intact bilaterally; no conjunctival abnormality ENMT: external ear and nose normal, oropharynx normal Neck: trachea midline, no thyromegaly normal visual inspection Respiratory: no respiratory distress and no labored breathing Auscultation: no crackles and no wheezes Cardiovascular: Rate/Rhythm: regular rate and regular rhythm Heart Sounds: normal S1 and normal S2 Vessels: no JVD Extremities: + edema Gastrointestinal (Abdomen): Inspection/Auscultation: abdomen normal to inspection; abdomen not distended Musculoskeletal: no cyanosis or clubbing, extremities motor strength 5/5 Skin: no rashes, warm and dry Neurologic: moves all extremities and awake Psychiatric: Orientation: alert, oriented to person and cooperative Results & Data Results & Data ([place]) Vital Signs (Past 12 Hours) Vital Signs Temp Pulse Resp BP BP Pulse Ox 02/02/20 19:42 37.0 C 71 20 181/103 H 90 02/02/20 17:39 168/110 H 02/02/20 16:06 135/110 H 02/02/20 15:37 36.5 C 68 22 177/113 H 98 02/02/20 11:20 37.0 C 56 L 20 155/91 H 99 02/02/20 10:39 60 157/97 H PG Care Time/CCT Total # of Minutes Spent Total Time Spent with Patient: Total time spent is greater than 50% in coordination of care (as documented) at patient's floor/unit and/or counseling patient: Coding Level of Care Code 97673 Subseq Hosp Care Lvl 3 Diagnoses Acute systolic (congestive) heart failure I50.21 Pulmonary embolism I26.99 Acute cor pulmonale presence: without acute cor pulmonale Chronicity: acute Pulmonary embolism type: unspecified Elevated serum creatinine R79.89 Type 2 diabetes mellitus E11.9 HTN (hypertension) I10 HLD (hyperlipidemia) E78.5 DVT prophylaxis Z29.9 Time Spent (min) 35 (1) Pulmonary embolism Acute cor pulmonale presence: without acute cor pulmonale Chronicity: acute Pulmonary embolism type: unspecified Qualified Code(s): I26.99 - Other pulmonary embolism without acute cor pulmonale
[2020-02-02] MEDS ORDERED: FUROSEMIDE 40 MG in SYRINGE 0 ML IV ONE (22:30)
[2020-02-03 07:39] LABS: BUN Creatinine Ratio 11.9 (10-20); Calcium 8.9 mg/dl (8.5-10.1); Creatinine Clr Calc Pharmacy 70.3 ml/min; Est GFR (Non-African American) 53.5; Potassium 3.8 mmol/L (3.5-5.1)
[2020-02-03] MEDS: INSULIN ASPART 100 UNITS/ML 3 ML PEN SC SCH ×4 (07:56→20:31)
[2020-02-03] MEDS: INSULIN GLARGINE SOLOSTAR 100 UNITS/ML 3 ML PEN SC SCH ×2 (07:58→20:31)
[2020-02-03] MEDS: ASPIRIN 81 MG ECTAB PO SCH (08:25)
[2020-02-03] MEDS: APIXABAN 5 MG TABLET PO SCH ×2 (08:25→19:21)
[2020-02-03] MEDS: carvediloL 25 MG TAB PO SCH ×2 (08:26→19:22)
[2020-02-03] MEDS: ROSUVASTATIN CALCIUM 20 MG TAB PO SCH (08:26)
[2020-02-03] MEDS: SACUBITRIL-VALSARTAN 24-26 MG TAB PO SCH ×2 (09:02→19:22)
[2020-02-03] MEDS ORDERED: FUROSEMIDE 20 MG TAB PO SCH (10:45)
--- NOTE | 2020-02-03 11:53 | Cardiology Progress Note ---
Date of Service February 03, 2020 Assessment & Plan (1) Acute systolic (congestive) heart failure: (2) Cardiomyopathy: (3) Elevated troponin: (4) HTN (hypertension): (5) HLD (hyperlipidemia): (6) Tobacco abuse: ASSESSMENT/PLAN: 1. Acute systolic CHF: He appears well compensated. I agree with switching his diuretic to an oral formulation. It seems that he was on 80 milligrams of Lasix as an outpatient prior to admission. He likely will require higher dose than 20 milligrams daily at the time of discharge but with the nitric affect of Entresto he may not require full 80 milligrams. Renal function appears stable currently. 2. Cardiomyopathy: No defined etiology. HIV negative. TSH normal. At some point he may benefit from advanced imaging such as an MRI. He is on Entresto and carvedilol. 3. Elevated troponin: Not related to acute coronary syndrome 4. Hypertension: Overall appears to be improved. He likely could tolerate more interest 0, but appears to have only gotten 2 doses so far. I think we will need to watch him for a few more days prior to increasing the dose. The addition of spironolactone at some point also seems to be a good idea. 5. Dyslipidemia: Agree with high-intensity statin therapy. 6. Tobacco abuse: Stop smoking. 7. NATHALIE: He appears to be back to baseline. Clinically he is doing very well. He is quite stable. It seems that he is approaching the point where he could be safely discharged and followed in the outpatient setting. (7) Acute kidney injury: Admission and Anticipated Discharge Date Admission Date: January 29, 2020 Subjective This morning the patient feels well. He did not verbalize any specific complaints. No breathing difficulty, no chest pain. He claims to have been ambulatory without difficulty to the bathroom. Review of Systems Review of Systems: Per HPI Physical Exam Physical Exam: The patient is alert and oriented. Mood and affect appeared normal. He answered all questions appropriately. Lying flat in bed HEENT: Pupils are equal and reactive to light and accommodation. Extraocular movements are intact. The sclerae are anicteric. Neuro: Cranial nerves intact Lungs: Clear to auscultation bilaterally. He has good air movement without use of accessory muscles. No rales wheezes or rhonchi. Cardiac: Heart demonstrates a regular rate and rhythm. Normal S1 and S2. No murmurs on examination. Pulses: The patient has palpable radial pulses bilaterally that are equal in intensity Extremities: There was no evidence of hypoperfusion. There is no cyanosis or clubbing. Mild bilateral lower extremity edema. Skin: I did not appreciate any rashes on examination today. Results & Data ([facility]) Vital Signs (Past 12 Hours) Vital Signs Temp Pulse Resp BP Pulse Ox 02/03/20 08:08 36.9 C 68 16 134/92 95 Laboratory Results Abnormal Lab Results 01/29/20 02/02/20 02/02/20 00:01 16:15 19:52 LA PTT Screen 37 Protein C Activity 79 Protein S Activity 77 Antithrombin III Activ 88 Factor V Leiden Mutat SEE NOTE Factor V Leiden Interp SEE NOTE Sodium Potassium Chloride Carbon Dioxide Anion Gap BUN Creatinine Est Cr Clr Drug Dosing Est GFR ( Amer) Est GFR (Non-Af Amer) BUN/Creatinine Ratio Glucose POC Glucose 130 H 163 H Calcium NT-Pro-B Natriuret Pep Beta-2-GPI IgG Ab <9 Beta-2-GPI IgA Ab <9 Beta-2-GPI IgM Ab <9 Anti-Cardiolipin IgG Ab <14 Anti-Cardiolipin IgA Ab <11 Anti-Cardiolipin IgM Ab <12 Prothrombin Gene Mutate SEE NOTE Prothromb Gene Comment SEE NOTE 02/03/20 02/03/20 06:38 07:51 LA PTT Screen Protein C Activity Protein S Activity Antithrombin III Activ Factor V Leiden Mutat Factor V Leiden Interp Sodium 143 Potassium 3.8 Chloride 107 Carbon Dioxide 34 H Anion Gap 2.0 L BUN 17 Creatinine 1.40 Est Cr Clr Drug Dosing 70.3 Est GFR ( Amer) 62.0 Est GFR (Non-Af Amer) 53.5 BUN/Creatinine Ratio 11.9 Glucose 161 H POC Glucose 119 H Calcium 8.9 NT-Pro-B Natriuret Pep 1936 H Beta-2-GPI IgG Ab Beta-2-GPI IgA Ab Beta-2-GPI IgM Ab Anti-Cardiolipin IgG Ab Anti-Cardiolipin IgA Ab Anti-Cardiolipin IgM Ab Prothrombin Gene Mutate Prothromb Gene Comment PG Care Time/CCT Total # of Minutes Spent Total Time Spent with Patient: Total time spent is greater than 50% in coordination of care (as documented) at patient's floor/unit and/or counseling patient: Coding Level of Care Code 86185 Subseq Hosp Care Lvl 2 Diagnoses Acute systolic (congestive) heart failure I50.21 Cardiomyopathy I42.9 Elevated troponin R79.89 HTN (hypertension) I10 HLD (hyperlipidemia) E78.5 Tobacco abuse Z72.0 Acute kidney injury N17.9
--- NOTE | 2020-02-03 22:40 | Hospitalist Progress Note ---
Date of Service February 03, 2020 Assessment & Plan (1) Acute systolic (congestive) heart failure: Patient is admitted with Acute systolic congestive heart failure. Patient has responded to Iv lasix. Blood pressure is better controlled. Transitioned him to PO lasix 20 mg once daily. (2) Pulmonary embolism: Initially CTA chest read as PE, but this was considered a mistake by the daytime radiologist. However, V/Q on 01/31 indicated high probability of PE. - Started Eliquis 10 mg PO BID on 01/31 for PE This will be continued for 3 months. (3) Elevated serum creatinine: Acute kidney failure likely secondary to acute systolic CHF. continues to improve. will monitor. (4) Type 2 diabetes mellitus: A1c is 7.9% this admission. - Hypoglycemic on arrival and on the morning of 01/28; likely due to prior insulin administration at his institution. - Per pharmacy recs, started lower-dose Lantus 15 units BID - Sliding scale insulin - Blood sugars have been in the 110-180 range so far in the last 24 hours. Continue current insulin regimen. (5) HTN (hypertension): BP is presently 140/90. - Continue carvedilol & Entresto -> Titrate as able Added on dose of amlodipine the night prior. This will be discontinued in favor of spironolactone. (6) HLD (hyperlipidemia): - Continue statin (7) DVT prophylaxis: Heparin 5,000 units SQ Q12h Admission and Anticipated Discharge Date Admission Date: January 29, 2020 Subjective Patient reports feeling well. He has no new complaints. Review of Systems Review of Systems: All systems reviewed & are unremarkable except as noted in HPI & below Physical Exam Physical Exam: Constitutional: WD/WN, vitals as above Eyes: EOM intact bilaterally; no conjunctival abnormality ENMT: external ear and nose normal, oropharynx normal Neck: trachea midline, no thyromegaly normal visual inspection Respiratory: no respiratory distress and no labored breathing Auscultation: no crackles and no wheezes Cardiovascular: Rate/Rhythm: regular rate and regular rhythm Heart Sounds: normal S1 and normal S2 Vessels: no JVD Extremities: + edema Gastrointestinal (Abdomen): Inspection/Auscultation: abdomen normal to inspection; abdomen not distended Musculoskeletal: no cyanosis or clubbing, extremities motor strength 5/5 Skin: no rashes, warm and dry Neurologic: moves all extremities and awake Psychiatric: Orientation: alert, oriented to person and cooperative Results & Data Results & Data ([facility]) Vital Signs (Past 12 Hours) Vital Signs Temp Pulse Resp BP Pulse Ox 02/03/20 19:23 66 164/78 H 95 02/03/20 15:29 36.4 C L 65 24 159/97 H 97 PG Care Time/CCT Total # of Minutes Spent Total Time Spent with Patient: Total time spent is greater than 50% in coordination of care (as documented) at patient's floor/unit and/or counseling patient: Coding Level of Care Code 42855 Subseq Hosp Care Lvl 3 Diagnoses Acute systolic (congestive) heart failure I50.21 Pulmonary embolism I26.99 Acute cor pulmonale presence: without acute cor pulmonale Chronicity: acute Pulmonary embolism type: unspecified Elevated serum creatinine R79.89 Type 2 diabetes mellitus E11.9 HTN (hypertension) I10 HLD (hyperlipidemia) E78.5 DVT prophylaxis Z29.9 (1) Pulmonary embolism Acute cor pulmonale presence: without acute cor pulmonale Chronicity: acute Pulmonary embolism type: unspecified Qualified Code(s): I26.99 - Other pulmonary embolism without acute cor pulmonale
[2020-02-04] MEDS: APIXABAN 5 MG TABLET PO SCH ×2 (08:13→20:13)
[2020-02-04] MEDS: ASPIRIN 81 MG ECTAB PO SCH (08:13)
[2020-02-04] MEDS: ROSUVASTATIN CALCIUM 20 MG TAB PO SCH (08:13)
[2020-02-04] MEDS: carvediloL 25 MG TAB PO SCH ×2 (08:13→20:14)
[2020-02-04] MEDS: SACUBITRIL-VALSARTAN 24-26 MG TAB PO SCH ×2 (08:13→20:14)
[2020-02-04] MEDS: INSULIN GLARGINE SOLOSTAR 100 UNITS/ML 3 ML PEN SC SCH ×2 (08:14→21:16)
[2020-02-04] MEDS: INSULIN ASPART 100 UNITS/ML 3 ML PEN SC SCH ×4 (08:14→21:24)
[2020-02-04] MEDS: FUROSEMIDE 40 MG TAB PO SCH (08:17)
[2020-02-04] MEDS: SPIRONOLACTONE 12.5 MG TAB PO SCH (09:09)
--- NOTE | 2020-02-04 15:02 | Cardiology Progress Note ---
Date of Service February 04, 2020 Assessment & Plan (1) Acute systolic (congestive) heart failure: (2) Cardiomyopathy: (3) Elevated troponin: (4) HTN (hypertension): (5) HLD (hyperlipidemia): (6) Tobacco abuse: ASSESSMENT/PLAN: 1. Acute systolic CHF: He appears well compensated. I think he is stable for discharge. He could possibly tolerate more Entresto. 2. Cardiomyopathy: No defined etiology. Can follow up in an outpatient setting. 3. Elevated troponin: Not related to acute coronary syndrome 4. Hypertension: Overall appears to be improved. I think he would tolerate more Entresto which can be increased at the time of discharge. 5. Dyslipidemia: Agree with high-intensity statin therapy. 6. Tobacco abuse: Stop smoking. 7. NATHALIE: He appears to be back to baseline. Clinically he is doing very well. He is quite stable. It seems that he is approaching the point where he could be safely discharged and followed in the outpatient setting. (7) Acute kidney injury: Admission and Anticipated Discharge Date Admission Date: January 29, 2020 Subjective This morning he reported feeling well. No specific complaints. No dizziness or lightheadedness with ambulation. No breathing difficulty. No orthopnea. Review of Systems Review of Systems: Per HPI Physical Exam Physical Exam: The patient is alert and oriented. Mood and affect appeared normal. He answered all questions appropriately. Lying flat in bed HEENT: Pupils are equal and reactive to light and accommodation. Extraocular movements are intact. The sclerae are anicteric. Neuro: Cranial nerves intact Lungs: Clear to auscultation bilaterally. He has good air movement without use of accessory muscles. No rales wheezes or rhonchi. Cardiac: Heart demonstrates a regular rate and rhythm. Normal S1 and S2. No murmurs on examination. Pulses: The patient has palpable radial pulses bilaterally that are equal in intensity Extremities: There was no evidence of hypoperfusion. There is no cyanosis or clubbing. Mild bilateral lower extremity edema. Skin: I did not appreciate any rashes on examination today. Results & Data ([facility]) Vital Signs (Past 12 Hours) Vital Signs Temp Pulse Resp BP Pulse Ox 02/04/20 07:31 36.9 C 64 18 160/96 H 97 Laboratory Results Abnormal Lab Results 02/03/20 02/03/20 02/04/20 16:39 20:06 07:37 POC Glucose 205 H 113 H 136 H 02/04/20 11:20 POC Glucose 213 H PG Care Time/CCT Total # of Minutes Spent Total Time Spent with Patient: Total time spent is greater than 50% in coordination of care (as documented) at patient's floor/unit and/or counseling patient: Coding Level of Care Code 37391 Subseq Hosp Care Lvl 2 Diagnoses Acute systolic (congestive) heart failure I50.21 Cardiomyopathy I42.9 Elevated troponin R79.89 HTN (hypertension) I10 HLD (hyperlipidemia) E78.5 Tobacco abuse Z72.0 Acute kidney injury N17.9
--- NOTE | 2020-02-04 22:54 | Hospitalist Progress Note ---
Date of Service February 04, 2020 Assessment & Plan (1) Acute systolic (congestive) heart failure: Patient is admitted with Acute systolic congestive heart failure. Patient has responded to Iv lasix. Blood pressure is better controlled. Transitioned him to PO lasix 40 mg once daily. Discharge was held as intermediate did not have his medications (2) Pulmonary embolism: Initially CTA chest read as PE, but this was considered a mistake by the daytime radiologist. However, V/Q on 01/31 indicated high probability of PE. - Started Eliquis 10 mg PO BID on 01/31 for PE This will be continued for 3 months. (3) Elevated serum creatinine: Acute kidney failure likely secondary to acute systolic CHF. continues to improve. will monitor. (4) Type 2 diabetes mellitus: A1c is 7.9% this admission. - Hypoglycemic on arrival and on the morning of 01/28; likely due to prior insulin administration at his institution. - Per pharmacy recs, started lower-dose Lantus 15 units BID - Sliding scale insulin - Blood sugars have been in the 110-180 range so far in the last 24 hours. Continue current insulin regimen. (5) HTN (hypertension): BP is presently 140/90. - Continue carvedilol & Entresto -> Titrate as able Added on dose of amlodipine the night prior. This will be discontinued in favor of spironolactone. will increase entresto on discharge (6) HLD (hyperlipidemia): - Continue statin (7) DVT prophylaxis: Heparin 5,000 units SQ Q12h Admission and Anticipated Discharge Date Admission Date: January 29, 2020 Subjective Patient reports doing well. He has no new complaints. Review of Systems Review of Systems: All systems reviewed & are unremarkable except as noted in HPI & below Physical Exam Physical Exam: Constitutional: WD/WN, vitals as above Eyes: EOM intact bilaterally; no conjunctival abnormality ENMT: external ear and nose normal, oropharynx normal Neck: trachea midline, no thyromegaly normal visual inspection Respiratory: no respiratory distress and no labored breathing Auscultation: no crackles and no wheezes Cardiovascular: Rate/Rhythm: regular rate and regular rhythm Heart Sounds: normal S1 and normal S2 Vessels: no JVD Extremities: + edema Gastrointestinal (Abdomen): Inspection/Auscultation: abdomen normal to inspection; abdomen not distended Musculoskeletal: no cyanosis or clubbing, extremities motor strength 5/5 Skin: no rashes, warm and dry Neurologic: moves all extremities and awake Psychiatric: Orientation: alert, oriented to person and cooperative Results & Data Results & Data ([facility]) Vital Signs (Past 12 Hours) Vital Signs Temp Pulse Resp BP Pulse Ox 02/04/20 20:14 61 160/115 H 02/04/20 15:30 36.6 C 65 18 148/87 H 95 PG Care Time/CCT Total # of Minutes Spent Total Time Spent with Patient: Total time spent is greater than 50% in coordination of care (as documented) at patient's floor/unit and/or counseling patient: Coding Level of Care Code 16890 Subseq Hosp Care Lvl 3 Diagnoses Acute systolic (congestive) heart failure I50.21 Pulmonary embolism I26.99 Acute cor pulmonale presence: without acute cor pulmonale Chronicity: acute Pulmonary embolism type: unspecified Elevated serum creatinine R79.89 Type 2 diabetes mellitus E11.9 HTN (hypertension) I10 HLD (hyperlipidemia) E78.5 DVT prophylaxis Z29.9 Time Spent (min) 35 (1) Pulmonary embolism Acute cor pulmonale presence: without acute cor pulmonale Chronicity: acute Pulmonary embolism type: unspecified Qualified Code(s): I26.99 - Other pulmonary embolism without acute cor pulmonale
[2020-02-05] MEDS: APIXABAN 5 MG TABLET PO SCH (08:21)
[2020-02-05] MEDS: ASPIRIN 81 MG ECTAB PO SCH (08:21)
[2020-02-05] MEDS: carvediloL 25 MG TAB PO SCH (08:21)
[2020-02-05] MEDS: FUROSEMIDE 40 MG TAB PO SCH (08:21)
[2020-02-05] MEDS: SACUBITRIL-VALSARTAN 24-26 MG TAB PO SCH (08:21)
[2020-02-05] MEDS: ROSUVASTATIN CALCIUM 20 MG TAB PO SCH (08:22)
[2020-02-05] MEDS: SPIRONOLACTONE 12.5 MG TAB PO SCH (08:22)
[2020-02-05] MEDS: INSULIN GLARGINE SOLOSTAR 100 UNITS/ML 3 ML PEN SC SCH (08:23)
[2020-02-05] MEDS: INSULIN ASPART 100 UNITS/ML 3 ML PEN SC SCH ×3 (08:25→17:33)
[2020-02-05] MEDS ORDERED: APIXABAN 5 MG TABLET PO SCH ×4 (16:15→16:48)
[2020-02-05] MEDS ORDERED: SACUBITRIL-VALSARTAN 24-26 MG TAB PO SCH (16:30)
[2020-02-05] MEDS ORDERED: SPIRONOLACTONE 12.5 MG TAB PO SCH (16:30)
--- NOTE | 2020-02-11 23:21 | Discharge Summary ---
Date of Service February 05, 2020 Admission HPI Per Admitting Provider Mr. Edmond is a 64 yo male prisoner with a PMHx of CHF, HTN, HLD, significant tobacco abuse, insulin-dependent diabetes mellitus, and obesity who was brought in for evaluation of shortness of breath. While watching television at 9:15pm, Mr. Edmond developed sudden onset SOB. His breathing worsened with ambulation. He denies associated malaise, cough, fever or chest pain. He denies a history of progressive dyspnea in the days preceding admission. He has no history of underlying lung disease. No history of blood clots. As for his tobacco abuse, he has smoked since age 18, as much as 2 packs per day, but quit 1 year ago. EMS report indicated patient's blood sugar was low (65); he was administered both glucose and dextrose on his ride to [facility]. Patient reports eating a normal dinner, including ice cream, denies any missed meals. ED Course: CBC normal. Electrolytes normal. Cr elevated to 1.67. UA normal. Albumin low at 2.8. AST elevated to 74, ALT normal. Troponin elevated to 0.285. PT 12.1. INR 1.2. ABG normal. Hypercoagulable panel ordered. EKG sinus bradycardia at 55 bpm with prolonged QT interval; repeat study showed new inferior and anterolateral ST segment changes and T wave inversions. Chest CTA showing filling defects in Right lower and middle lobes consistent with pulmonary emboli, without infarction; cardiomegaly with moderate R pleural effusion and small L pleural effusion. Reflux of contrast into IVF and hepatic veins was observed. He was given a nebulizer treatment, which resulted in improvement in his SOB. He was placed on coke production heater and started on a standard heparin drip with bolus. Principal Diagnosis Acute systolic CHF Discharge Exam Constitutional: WD/WN, vitals as above Eyes: EOM intact bilaterally; no conjunctival abnormality ENMT: external ear and nose normal, oropharynx normal Neck: trachea midline, no thyromegaly normal visual inspection Respiratory: no respiratory distress and no labored breathing Auscultation: no crackles and no wheezes Cardiovascular: Rate/Rhythm: regular rate and regular rhythm Heart Sounds: normal S1 and normal S2 Vessels: no JVD Extremities: + decreased edema Gastrointestinal (Abdomen): Inspection/Auscultation: abdomen normal to inspection; abdomen not distended Musculoskeletal: no cyanosis or clubbing, extremities motor strength 5/5 Skin: no rashes, warm and dry Neurologic: moves all extremities and awake Psychiatric: Orientation: alert, oriented to person and cooperative Discharge Data Allergies Allergy/AdvReac Type Severity Reaction Status Date / Time No Known Allergies Allergy Verified 01/28/20 23:23 Consultations 01/28/20 23:49 ED Decision to Admit Stat 01/29/20 02:20 Consult Cardiology Routine Procedures Performed Operation Date: 01/29/20 14:00 Actual Procedures p Cath, Left with Cors and Vent - Pancho Shaikh MD s Cineradiography w/Routine Exam - Rey Khan MD s Fraction Flow [place] SGL Ves - Rey Khan MD Ordered Studies 01/28/20 22:44 CT angio chest PE protocol Urgent 01/29/20 02:20 US venous doppler LE BI Routine 01/29/20 13:58 CL Cath Imgs for PACS use only Routine Hospital Course (1) Acute systolic (congestive) heart failure: Patient is admitted with Acute systolic congestive heart failure. Patient has responded to Iv lasix. Blood pressure is better controlled. Transitioned him to PO lasix 40 mg once daily. Gave signout to provider in Custodial (2) Pulmonary embolism: Initially CTA chest read as PE, but this was considered a mistake by the daytime radiologist. However, V/Q on 01/31 indicated high probability of PE. - Started Eliquis 10 mg PO BID on 01/31 for PE This will be continued for 3 months. (3) Elevated serum creatinine: Acute kidney failure likely secondary to acute systolic CHF. continues to improve. will monitor. (4) Type 2 diabetes mellitus: A1c is 7.9% this admission. - Hypoglycemic on arrival and on the morning of 01/28; likely due to prior insulin administration at his institution. - Per pharmacy recs, started lower-dose Lantus 15 units BID - Sliding scale insulin - Blood sugars have been in the 110-180 range so far in the last 24 hours. Continue current insulin regimen. (5) HTN (hypertension): BP is presently 140/90. - Continue carvedilol & Entresto -> Titrate as able Added on dose of amlodipine the night prior. This will be discontinued in favor of spironolactone. will increase entresto on discharge (6) HLD (hyperlipidemia): - Continue statin (7) DVT prophylaxis: Heparin 5,000 units SQ Q12h Total Time Total Time Spent Total Time Spent (In Minutes): 32 Total Time Includes: Examination of the Patient, Discharge Planning and Medication Reconciliation Discharge Plan Discharge Items [facility]position[facility] Reason For Visit: SOB Discharge Diagnosis: CHF Condition on Discharge: Fair Activity: Resume your previous activity Non-emergency contact: Primary Care Provider Call non-emergency contact if: you have any medication questions Follow-up/Referrals: Samantha ROMERO [Primary Care Provider] - Diet: Carb Consistent or DM2 and Low Sodium (2gm) Addtl Attending Provider Instructions: Stopped metformin. Will need to titrate up insulin to better control blood sugar. Eliquis for 3 months. For 10 more days: take 10 mg Twice a day Then 5 mg twice a day. Check potassium in 1 week. Followup with heart failure clinic in 1-2 weeks. ACTIVITY RECOMMENDATIONS: Excess manipulation of the wrist should be avoided for the next 24-48 hours. * No lifting over 2 pounds (approximately a 1/2 gallon of milk) with the utilized arm for 24 hours. * No strenuous activity such as bowling or tennis for 3 days. * Keep the site of the procedure covered with a bandage for 24 hours. *You may shower the day after the procedure. Do not take a tub bath or submerge the puncture site in water for the next 3 days. *Do not operate any motorized equipment for 3 days. SPECIAL CARE INSTRUCTIONS: The site may be slightly bruised and sore following your procedure. Should any of the following occur, contact the Dr. who performed your procedure. 1. Redness/inflammation, swelling, chills, or fever, or colored drainage at procedure site within 3-7 days after your procedure. 2. Coldness, discoloration, ongoing numbness, severe pain, or swelling. Expect mild tingling of hand and tenderness at the puncture site for up to three days. If this persists beyond three days, or other symptoms develop, notify the Dr. who performed your procedure. BLEEDING: If the procedure site on your wrist begins to bleed, do not panic 1. Place 1 or 2 fingers firmly just slightly above the insertion site to stop the bleeding. You may be able to feel your pulse as you hold pressure. 2. Lift your finger after 5 minutes to see if the bleeding has stopped. 3. Once the bleeding has stopped, gently wipe the wrist area clean with a bandage. * If the bleeding from your wrist does not stop after 10 minutes, or if there is a large amount of bleeding or spurting, call 911 (do not drive yourself to the hospital). SKIN IRRITATION: * You may experience some redness and/or swelling in the area where radiation was administered. If any skin irritation occurs, please contact your family physician. FOLLOW UP VISIT: Keep any scheduled doctor appointments. Pending Studies at Discharge: No Stand-Alone Forms: [facility] Skilled Items Patient informed of condition?: Yes Discharge Level of Care: Other Communicable Disease: No Discharge Prognosis: Stable Lines: None Urinary Catheter: No Medications and DC Order Prescriptions: New carvedilol 25 mg Tablet 25 mg PO BID@799,1999 Qty: 60 RF: 0 Entresto 24-26 mg Tablet 2 tab PO BID@799,1999 30 Days Qty: 120 RF: 0 furosemide 40 mg Tablet 40 mg PO QAM Qty: 30 RF: 0 aspirin 81 mg Tablet,Delayed Release (Dr/Ec) 81 mg PO DAILY@0800 Qty: 30 RF: 0 spironolactone 25 mg Tablet 12.5 mg PO DAILY Qty: 15 RF: 0 Eliquis 5 mg Tablet See Rx Instructions .ROUTE .COMPLEX Qty: 80 RF: 0 Continued Humulin 70/30 U-100 Insulin 100 unit/mL (70-30) Suspension 34 unit SUBCUT QAM RF: 0 Humulin 70/30 U-100 Insulin 100 unit/mL (70-30) Suspension 25 unit SUBCUT QPM RF: 0 Humulin R Regular U-100 Insuln 100 unit/mL Solution 1 sliding scale dose SUBCUT USEASDIRECTD RF: 0 rosuvastatin 40 mg Tablet 40 mg PO DAILY RF: 0 Discontinued aspirin 325 mg Tablet 325 mg PO DAILY RF: 0 metoprolol tartrate 100 mg Tablet 100 mg PO BID RF: 0 potassium chloride 10 mEq Tablet Extended Release 10 meq PO DAILY RF: 0 furosemide 80 mg Tablet 80 mg PO DAILY RF: 0 metformin 1,000 mg Tablet 1,000 mg PO BID RF: 0 losartan 100 mg Tablet 100 mg PO DAILY RF: 0 Discharge Orders: Discharge Order (Routine); Ordered 02/05/20 Ordered By: Rito Christensen/Other Patient Handouts: 2019-nCoV, Heart Failure, Diabetes Activity Tips, Acute Kidney Injury Dc, Cardiomyopathy Dc, Embolism Pulmonary Dc, Heart Risk Plan Admission Data Admit Date/Time: 01/29/20 00:32 Attending Provider: Rito Worley Admit Provider: Lola Nieto Primary Care Provider: Samantha ROMERO Other Providers: Pancho Shaikh ; Rey Khan ; John Ibarra ; Rey Malone Other Interventions: Discharge Summary Assessment (RN) Last Done: 02/05/20 15:56 DC Date/Time DO NOT enter until pt leaves facility: 02/05/20 18:06 Coding Level of Care Code D/C Day Management >30 mins Diagnoses Acute systolic (congestive) heart failure I50.21 Pulmonary embolism I26.99 Acute cor pulmonale presence: without acute cor pulmonale Chronicity: acute Pulmonary embolism type: unspecified Elevated serum creatinine R79.89 Type 2 diabetes mellitus E11.9 HTN (hypertension) I10 HLD (hyperlipidemia) E78.5 DVT prophylaxis Z29.9
== END 2020-02-05 18:06 | DRG 286 ==
LOC: ED 22:39 → SUATTDRO 01-29 00:32 → 2S 01-29 00:32 → 2W 02-02 14:13 → 3E 02-05 02:04

== ENCOUNTER 2020-05-31 17:30 | Observation (INO) ==
[2020-05-31 18:24] LABS: iSTAT Ionized Calcium 1.11 mmol/l (1.12-1.32); iSTAT Potassium 4.2 mmol/L (3.3-5.0)
[2020-05-31] MEDS ORDERED: SODIUM CHLORIDE 0.9% 1000ML 1,000 ML IV ONE (18:28)
[2020-05-31] MEDS ORDERED: IOVERSOL 100ml IV ONE (18:38)
--- NOTE | 2020-05-31 18:50 | CT Scan Report ---
CT head/brain wo con CLINICAL HISTORY: Seizure. Head trauma. Head pain. COMPARISON STUDY: No previous studies for comparison. TECHNIQUE: Axial CT of the brain is performed from the vertex to the skull base. IV contrast was not administered for this examination. A dose lowering technique was utilized adhering to the principles of ALARA. CT DOSE: FINDINGS: There are postsurgical changes of a right frontal craniotomy. There are radiopaque densities anterior to the base of the frontal horns representing either vascular clips or embolic material. There is ri ght frontal lobe encephalomalacia. There is right putamen encephalomalacia. There is a small area of right temporal lobe encephalomalacia. There is a right frontal ventriculostomy catheter which termina zoë within the body left lateral ventricle. There is mild ventricular dilatation likely secondary to volume loss. There is a cavum septum pellucidum. There is no CT evidence of acute cortical infarction . There is no midline shift. There is no evidence of acute hemorrhage. There are additional areas of encephalomalacia within the centrum semiovale bilaterally. No acute fractures are visualized.. There is no evidence of acute sinusitis. IMPRESSION: 1. Postsurgical changes with areas of right frontal and temporal lobe encephalomalacia 2. No acute intracranial findings. ACT 112: Negative or not required by law. Electronically signed by: Jamel Lyon M.D. 05/31/2020 6:49 PM
--- NOTE | 2020-05-31 18:53 | CT Scan Report ---
CT OF THE CERVICAL SPINE CLINICAL HISTORY: Head trauma. Possible seizure. Head pain. COMPARISON STUDY: No previous studies for comparison. CT DOSE: 1089.34 mGy.cm TECHNIQUE: CT scan of the cervical spine was performed from the skull base to the thoracic inlet. Sereinty ges are reviewed in the axial, sagittal, and coronal planes. IV contrast was not administered for thi s examination. A dose lowering technique was utilized adhering to the principles of ALARA. FINDINGS: The visualized portions of the lung apices reveal no evidence of pneumothorax. The prevertebral soft tissues are normal. No fractures or subluxations are visualized. There are multilevel degenerative changes. There is a spinal curvature convex to the right. There is poor dentition with multiple dental apical abscesses. IMPRESSION: No evidence of acute fracture or traumatic subluxation. ACT 112: Negative or not required by law. Electronically signed by: Jamel Lyon M.D. 05/31/2020 6:51 PM
--- NOTE | 2020-05-31 18:58 | CT Scan Report ---
CT abd pelvis IV con only CLINICAL HISTORY: Seizure. Patient found on ground. Possible abdominal injury. COMPARISON STUDY: None. TECHNIQUE: The patient was scanned in a dynamic helical fashion during intravenous administration of 90 cc of Optiray 320 A dose lowering technique was utilized adhering to the principles of ALARA. CT DOSE: 1217.80 mGy.cm FINDINGS: Lower chest: The heart is enlarged. There are basilar opacities likely atelectatic. There is small ri ght pleural effusion. Liver: The contrast-enhanced liver is normal in size, contour, and attenuation. There is no intrahepa tic biliary ductal dilatation. The hepatic veins and portal veins are patent. Gallbladder: Unremarkable. Spleen: Normal in size and attenuation. Pancreas: Unremarkable. Adrenal glands: There is mild bilateral adrenal limb thickening Kidneys: There is no CT evidence of acute renal injury. There are multiple bilateral subcentimeter re nal hypodensities statistically representing cysts although several slightly exceed water attenuation Bowel: There are no transition zones indicate bowel obstruction. There is no pathologic interloop flu id. The appendix appears normal. There is no pneumatosis. There is no evidence of acute diverticuliti s. There is mild fecal retention. Peritoneum: The distal portion of a ventriculoperitoneal shunt is visualized. There is minimal free p elvic fluid. There is no free intraperitoneal air. Vasculature: There is a 39 mm infrarenal abdominal aortic aneurysm. There is also aneurysmal dilatati on at the level of the aortic bifurcation. Adenopathy: None. Pelvic viscera: There is mild prostatomegaly. There is a small fat-containing left inguinal hernia Skeletal structures: There is a corticated bony density located posterior to the left acetabulum. Thi s is not felt to be acute. No acute fractures are visualized. IMPRESSION: 1. Small right pleural effusion and basilar atelectasis 2. Minimal free pelvic fluid 3. No evidence of acute intra-abdominal or pelvic injury 4. 39 mm infrarenal abdominal aortic aneurysm ACT 112: Negative or not required by law. Electronically signed by: Jamel Lyon M.D. 05/31/2020 6:56 PM
[2020-05-31 19:32] LABS: Basophils # (auto) 0.02 K/uL (0-0.2); Basophils % (auto) 0.2 %; Eosinophils # (auto) 0.07 K/uL (0-0.5); Eosinophils % (auto) 0.9 %; Hematocrit (blood only) 40.8 % (42-52); Hemoglobin 12.7 g/dL (14.0-18.0); Immature Granulocytes # (auto) 0.01 K/uL (0.00-0.02); Immature Granulocytes % (auto) 0.1 %; Lymphocytes # (auto) 1.21 K/uL (1.2-3.4); Lymphocytes % (auto) 14.8 %; Mean Corpuscular Hemoglobin 21.6 pg (25-34); Mean Corpuscular Hgb Conc 31.1 g/dL (32-36); Mean Corpuscular Volume 69.3 fL (80-100); Mean Platelet Volume 10.1 fL (7.4-10.4); Monocytes # (auto) 0.29 K/uL (0.11-0.59); Monocytes % (auto) 3.5 %; Neutrophils % (auto) 80.5 %; Platelet Count 231 K/uL (130-400); RDW Coefficient of Variation 15.5 % (11.5-14.5); RDW Standard Deviation 38.6 fL (36.4-46.3); Red Blood Count 5.89 M/uL (4.7-6.1)
--- NOTE | 2020-05-31 19:36 | XRay Report ---
XR pelvis 1-2V routine CLINICAL HISTORY: Trauma COMPARISON: None. DISCUSSION: No pelvic fractures are visualized. There is no SI joint diastases. There is no symphysis diastases. There is contrast in the bladder secondary to a prior CT scan. IMPRESSION: No fractures identified. ACT 112: Negative or not required by law. Electronically signed by: Jamel Lyon M.D. 05/31/2020 7:34 PM
--- NOTE | 2020-05-31 19:37 | XRay Report ---
XR chest 1V portable CLINICAL HISTORY: Possible seizure. Patient found on the ground. COMPARISON STUDY: 05/08/2020 FINDINGS: The heart is enlarged. A ventriculoperitoneal shunt is visualized. There are subsegmental a telectatic changes in the left midlung zone. There are bibasilar opacities statistically atelectatic although infectious/inflammatory processes could appear similar[. There is mild central vascular pro minence without evidence of overt failure. IMPRESSION: 1. Cardiomegaly 2. Bibasilar opacities, statistically atelectatic. ACT 112: Negative or not required by law. Electronically signed by: Jamel Lyon M.D. 05/31/2020 7:36 PM
[2020-05-31 19:52] LABS: BUN Creatinine Ratio 11.7 (10-20); Calcium 8.6 mg/dl (8.5-10.1); Est GFR (African American) 85.8; Magnesium 1.9 mg/dl (1.8-2.4); Potassium 3.7 mmol/L (3.5-5.1)
--- NOTE | 2020-05-31 20:09 | Emergency Department Note ---
History of Present Illness General Chief complaint: Seizure Stated complaint: SEIZURE, WEAKNESS LEFT SIDE Time Seen by Provider: 05/31/20 17:36 History of Present Illness Provider complaint: Seizure Onset (ago): day(s) 1 Maximum Pain Intensity: 0 64-year-old male presents emergency department via EMS. Patient is a prisoner and was found down in his cell. He was taken to the [facility] per EMS where he had a seizure. EMS stated that the [facility] doctor stated that the seizure lasted approximately 30 seconds. EMS was called and when they arrived the patient had another seizure that lasted approximately 30 seconds. Patient was given 2 mg of Ativan by EMS. The tonic-clonic movements stopped. EMS reported that the patient had urinated on himself also. Per EMS patient has a history of seizure disorder. Patient is on Eliquis. Home Medications Home Medications Medication Instructions Recorded Confirmed Type Humulin 70/30 U-100 Insulin 10 unit SUBCUT QPM 03/30/19 05/08/20 History Humulin 70/30 U-100 Insulin 15 unit SUBCUT QAM 03/30/19 05/08/20 History Humulin R Regular U-100 Insuln 1 sliding scale dose SUBCUT 03/30/19 05/08/20 History USEASDIRECTD rosuvastatin 40 mg PO DAILY 03/30/19 05/08/20 History aspirin 81 mg PO DAILY@0800 #30 tab 02/04/20 05/31/20 Rx carvedilol 25 mg PO BID@0800,2000 #60 tab 02/04/20 05/31/20 Rx apixaban [Eliquis] 10 mg PO BID 05/08/20 05/08/20 History sacubitril-valsartan [Entresto] 1 tab PO BID 05/08/20 05/08/20 History bumetanide [Bumex] 2 mg PO DAILY 05/31/20 05/31/20 History insulin NPH and regular human 10 unit SUBCUT QPM 05/31/20 05/31/20 History [Novolin 70/30 U-100 Insulin] insulin NPH and regular human 15 unit SUBCUT QAM 05/31/20 05/31/20 History [Novolin 70/30 U-100 Insulin] spironolactone 25 mg PO BID 05/31/20 05/31/20 History Allergies Allergy/AdvReac Type Severity Reaction Status Date / Time No Known Allergies Allergy Verified 05/31/20 21:23 Past Med/Surg History Medical History CHF (congestive heart failure) Diabetes mellitus, type 2 IDDM Hyperlipidemia Hypertension Obesity Surgical History Brain aneurysm REPAIR ()= NO FURTHER DETAILS Social History Smoking Status: Former smoker Hx Alcohol Use: No Hx Substance Use: No Preferred Language: Vietnamese Communication Ability: Effective Wellness Trainer Required: No Beliefs That Will Affect Care: None marital status: Single Current Living Situation: Other Current Living Situation Comment: residential Feels Safe at Home: Yes Review of Systems Unobtainable due to reduced consciousness (Patient appears to be postictal) Physical Exam Vital Signs Vital Signs - 24 hr 05/31/20 17:31 05/31/20 18:49 05/31/20 18:50 Temperature 37.5 C Temperature Source Oral Pulse Rate 88 100 H 98 H Pulse Rate from SpO2 Sensor 100 H 99 H Pulse Rhythm Regular Pulse Strength Normal Respiratory Rate 13 Respiratory Effort / Characteristics Non-Labored Respiratory Depth Normal Respiratory Pattern Regular Blood Pressure 148/84 H Blood Pressure Mean 105 Blood Pressure Position Lying Pulse Oximetry 96 96 95 Oxygen Delivery Method Room Air Sepsis Recent Fever Within 48 Hours No Sepsis New/Unexplained Change in Mental Status No Sepsis Action Taken by Nursing No Action Required 05/31/20 19:00 05/31/20 19:01 05/31/20 19:10 Temperature Temperature Source Pulse Rate 90 85 89 Pulse Rate from SpO2 Sensor 90 84 89 Pulse Rhythm Pulse Strength Respiratory Rate Respiratory Effort / Characteristics Respiratory Depth Respiratory Pattern Blood Pressure 165/87 H Blood Pressure Mean 106 Blood Pressure Position Pulse Oximetry 97 99 96 Oxygen Delivery Method Sepsis Recent Fever Within 48 Hours Sepsis New/Unexplained Change in Mental Status Sepsis Action Taken by Nursing 05/31/20 19:20 05/31/20 19:30 05/31/20 19:31 Temperature Temperature Source Pulse Rate 96 H 105 H 108 H Pulse Rate from SpO2 Sensor 96 H 104 H 80 Pulse Rhythm Pulse Strength Respiratory Rate Respiratory Effort / Characteristics Respiratory Depth Respiratory Pattern Blood Pressure 186/173 H Blood Pressure Mean 174 Blood Pressure Position Pulse Oximetry 98 97 97 Oxygen Delivery Method Sepsis Recent Fever Within 48 Hours Sepsis New/Unexplained Change in Mental Status Sepsis Action Taken by Nursing 05/31/20 19:40 05/31/20 19:51 05/31/20 20:00 Temperature Temperature Source Pulse Rate 84 74 69 Pulse Rate from SpO2 Sensor 84 75 70 Pulse Rhythm Pulse Strength Respiratory Rate 24 Respiratory Effort / Characteristics Respiratory Depth Respiratory Pattern Blood Pressure 138/74 Blood Pressure Mean 99 Blood Pressure Position Pulse Oximetry 96 98 97 Oxygen Delivery Method Sepsis Recent Fever Within 48 Hours Sepsis New/Unexplained Change in Mental Status Sepsis Action Taken by Nursing 05/31/20 20:01 05/31/20 20:10 05/31/20 20:20 Temperature Temperature Source Pulse Rate 70 67 68 Pulse Rate from SpO2 Sensor 70 68 68 Pulse Rhythm Pulse Strength Respiratory Rate 23 23 Respiratory Effort / Characteristics Respiratory Depth Respiratory Pattern Blood Pressure Blood Pressure Mean Blood Pressure Position Pulse Oximetry 97 98 98 Oxygen Delivery Method Sepsis Recent Fever Within 48 Hours Sepsis New/Unexplained Change in Mental Status Sepsis Action Taken by Nursing 05/31/20 20:30 05/31/20 20:31 05/31/20 20:40 Temperature Temperature Source Pulse Rate 64 67 78 Pulse Rate from SpO2 Sensor 64 65 78 Pulse Rhythm Pulse Strength Respiratory Rate 23 23 Respiratory Effort / Characteristics Respiratory Depth Respiratory Pattern Blood Pressure 147/75 H Blood Pressure Mean 105 Blood Pressure Position Pulse Oximetry 98 98 98 Oxygen Delivery Method Sepsis Recent Fever Within 48 Hours Sepsis New/Unexplained Change in Mental Status Sepsis Action Taken by Nursing 05/31/20 20:50 05/31/20 21:00 05/31/20 21:01 Temperature Temperature Source Pulse Rate 90 83 80 Pulse Rate from SpO2 Sensor 95 H 83 85 Pulse Rhythm Pulse Strength Respiratory Rate Respiratory Effort / Characteristics Respiratory Depth Respiratory Pattern Blood Pressure 171/100 H Blood Pressure Mean 103 Blood Pressure Position Pulse Oximetry 95 98 94 Oxygen Delivery Method Sepsis Recent Fever Within 48 Hours Sepsis New/Unexplained Change in Mental Status Sepsis Action Taken by Nursing 05/31/20 21:10 05/31/20 21:20 05/31/20 21:30 Temperature Temperature Source Pulse Rate 81 91 H 74 Pulse Rate from SpO2 Sensor 78 88 75 Pulse Rhythm Pulse Strength Respiratory Rate 19 Respiratory Effort / Characteristics Respiratory Depth Respiratory Pattern Blood Pressure 160/82 H Blood Pressure Mean 98 Blood Pressure Position Pulse Oximetry 94 99 99 Oxygen Delivery Method Sepsis Recent Fever Within 48 Hours Sepsis New/Unexplained Change in Mental Status Sepsis Action Taken by Nursing 05/31/20 21:31 05/31/20 21:40 05/31/20 21:50 Temperature Temperature Source Pulse Rate 79 77 76 Pulse Rate from SpO2 Sensor 80 77 66 Pulse Rhythm Pulse Strength Respiratory Rate 23 24 Respiratory Effort / Characteristics Respiratory Depth Respiratory Pattern Blood Pressure Blood Pressure Mean Blood Pressure Position Pulse Oximetry 98 94 95 Oxygen Delivery Method Sepsis Recent Fever Within 48 Hours Sepsis New/Unexplained Change in Mental Status Sepsis Action Taken by Nursing Physical Exam HENT: Exam performed. - Head: Normocephalic and atraumatic. - Right Ear: External ear normal. No mastoid tenderness. - Left Ear: External ear normal. No mastoid tenderness. - Mouth/Throat: Evidence of tongue bite on the left. EYES: Conjunctivae and EOM are normal. Pupils are equal, round, and reactive to light. Right eye exhibits no discharge. Left eye exhibits no discharge. No scleral icterus. NECK: Normal range of motion. Neck supple. No JVD present. No spinous process tenderness present. No carotid bruit present. No rigidity. No tracheal deviation and normal range of motion present. No Brudzinski's sign and no Kernig's sign noted. CV: Normal rate, regular rhythm, normal heart sounds and intact distal pulses. There is no peripheral edema. Palpable radial pulses bue. PULM/CHEST: Effort normal and breath sounds normal. No respiratory distress. No stridor. He has no wheezes. He has no rales. - Chest Wall: He exhibits no tenderness. ABD: The abdomen is soft. Bowel sounds are normal. He has no distension. No mass is present. There is no tenderness. There is no rebound, no guarding, no Govea's sign and no tenderness at McBurney's point. Rovsig negative. MUSC/SKEL: Normal range of motion. There is no peripheral edema, tenderness or deformity. LYMPH: No cervical adenopathy. NEURO: Patient appears postictal. He is slurring his words. Course Course 1735: The patient was evaluated in room A10. A complete history and physical ex am was performed. 1944: Vital signs stable. Patient alert and oriented x3. He is asking for urinal to urinate in. He no longer appears postictal. No neurological deficits at this time. 2021: Vital signs stable. Labs show an elevated lactic acid of 3.1. This thought to be due to the patient having a seizure. Is not thought to be due to infection as patient has no fever or leukocytosis. Prolactin level is within normal limits. CTs are within normal limits. I discussed the case with Dr. Gamble on-call neurology who states that the patient should be loaded with Keppra 1 g IV piggyback and be admitted to the hospital and have an MRI and neurology evaluation. He states he is worried the patient could have had a stroke. [facility] hospitalist Dr. Nelson was notified of the patient.. Administered Medications Discontinued Medications Sodium Chloride (Nss 1000ml) 1,000 mls @ 999 mls/hr IV .[id number] ONE Stop: 05/31/20 19:28 Last Infusion: 05/31/20 20:02 Dose: 0 mls/hr Documented by: [id number] Admin: 05/31/20 19:00 Dose: 999 mls/hr Documented by: [id number] Levetiracetam 1,000 mg/ Sodium (Chloride) 110 mls @ 440 mls/hr IV NOW STA Stop: 05/31/20 20:30 Last Infusion: 05/31/20 20:57 Dose: 0 mls/hr Documented by: [id number] Admin: 05/31/20 20:34 Dose: 440 mls/hr Documented by: [id number] Ioversol (Ioversol 100ml) 90 ml IV ONCE ONE Stop: 05/31/20 18:39 Last Admin: 05/31/20 18:39 Dose: 90 ml Documented by: [id number] Medical Decision Making Laboratory Data Result diagrams: 05/31/20 19:19 05/31/20 19:19 Lab Results 05/31/20 05/31/20 05/31/20 Range/Units 18:04 18:10 18:20 WBC RBC Hgb POC Hgb 15.0 (14.0-18.0) g/dl Hct POC Hct 44 (42-52) % MCV MCH MCHC RDW Std Deviation RDW Coeff of Malina Plt Count MPV Immature Gran % (Auto) Neut % (Auto) Lymph % (Auto) [place] % (Auto) Eos % (Auto) Baso % (Auto) Neut # (Auto) Lymph # (Auto) [place] # (Auto) Eos # (Auto) Baso # (Auto) Immature Gran # (Auto) Absolute Nucleated RBC Nucleated RBC % (auto) Neutrophils % (Manual) Band Neutrophils % Lymphocytes % (Manual) Prolymphocyte % Reactive Lymphs % (Man) Monocytes % (Manual) Eosinophils % (Manual) Basophils % (Manual) Metamyelocytes % (Man) Myelocytes % (Man) Promyelocytes % (Man) Blast Cells % (Manual) Plasma Cell % (Manual) Other Cells % Nucleated RBC % Neutrophils # (Manual) Band Neutrophils # Total Absolute Neuts Lymphocytes # (Manual) Prolymphocyte # Reactive Lymphs # Total Abs Lymphocytes Monocytes # (Manual) Eosinophils # (Manual) Basophils # (Manual) Metamyelocytes # (Man) Myelocytes # (Manual) Promyelocytes # (Man) Blast Cells # (Man) Plasma Cell # (Manual) Other Cells # Nucleated RBCs # (Man) Hypersegmented Neuts Hyposegmented Neuts Hypogranular Neuts Large Granular Lymphs # Lrg Granular Lymphs Hairy Cells Smudge Cells Toxic Granulation Toxic Vacuolation Dohle Bodies Edwar Rods Platelet Estimate Hypogranular Platelets Clumped Platelets Giant Platelets Platelet Satelliting RBC Morphology Polychromasia Hypochromasia Poikilocytosis Basophilic Stippling Anisocytosis Microcytosis Macrocytosis Spherocytes Pappenheimer Bodies Sickle Cells Target Cells Tear Drop Cells Ovalocytes Stomatocytes Calles-Corydon Bodies Echinocytes Acanthocytes (Spur) Rouleaux RBC Agglutinates Schistocytes RBC Morph Comment Sezary Cell POC Sodium 138 (135-144) mmol/L Sodium Cancelled POC Potassium 4.2 (3.3-5.0) mmol/L Potassium Cancelled POC Chloride 102 (101-112) mmol/L Chloride Cancelled Carbon Dioxide Cancelled POC Total CO2 25 (24-31) mmol/L Anion Gap Cancelled POC Anion Gap 17.0 (16-25) mmol/L POC BUN 16 (7-18) mg/dl BUN Cancelled Creatinine Cancelled POC Creatinine 1.0 (0.6-1.3) mg/dl Est Cr Clr Drug Dosing Cancelled Est GFR ( Amer) Cancelled Est GFR (Non-Af Amer) Cancelled BUN/Creatinine Ratio Cancelled Glucose Cancelled POC Glucose 162 H (70-99) mg/dl POC Glucose (other) 169 H (70-99) mg/dl Lactate (0.4-2.0) mmol/L Calcium Cancelled POC Ioniz Calcium Kvng 1.11 L (1.12-1.32) mmol/l Magnesium Cancelled Total Creatine Kinase Cancelled Prolactin ng/ml Specimen Hemolysis 05/31/20 05/31/20 05/31/20 Range/Units 18:20 18:20 18:20 WBC Cancelled RBC Cancelled Hgb Cancelled POC Hgb (14.0-18.0) g/dl Hct Cancelled POC Hct (42-52) % MCV Cancelled MCH Cancelled MCHC Cancelled RDW Std Deviation Cancelled RDW Coeff of Malina Cancelled Plt Count Cancelled MPV Cancelled Immature Gran % (Auto) Cancelled Neut % (Auto) Cancelled Lymph % (Auto) Cancelled [place] % (Auto) Cancelled Eos % (Auto) Cancelled Baso % (Auto) Cancelled Neut # (Auto) Cancelled Lymph # (Auto) Cancelled [place] # (Auto) Cancelled Eos # (Auto) Cancelled Baso # (Auto) Cancelled Immature Gran # (Auto) Cancelled Absolute Nucleated RBC Cancelled Nucleated RBC % (auto) Cancelled Neutrophils % (Manual) Cancelled Band Neutrophils % Cancelled Lymphocytes % (Manual) Cancelled Prolymphocyte % Cancelled Reactive Lymphs % (Man) Cancelled Monocytes % (Manual) Cancelled Eosinophils % (Manual) Cancelled Basophils % (Manual) Cancelled Metamyelocytes % (Man) Cancelled Myelocytes % (Man) Cancelled Promyelocytes % (Man) Cancelled Blast Cells % (Manual) Cancelled Plasma Cell % (Manual) Cancelled Other Cells % Cancelled Nucleated RBC % Cancelled Neutrophils # (Manual) Cancelled Band Neutrophils # Cancelled Total Absolute Neuts Cancelled Lymphocytes # (Manual) Cancelled Prolymphocyte # Cancelled Reactive Lymphs # Cancelled Total Abs Lymphocytes Cancelled Monocytes # (Manual) Cancelled Eosinophils # (Manual) Cancelled Basophils # (Manual) Cancelled Metamyelocytes # (Man) Cancelled Myelocytes # (Manual) Cancelled Promyelocytes # (Man) Cancelled Blast Cells # (Man) Cancelled Plasma Cell # (Manual) Cancelled Other Cells # Cancelled Nucleated RBCs # (Man) Cancelled Hypersegmented Neuts Cancelled Hyposegmented Neuts Cancelled Hypogranular Neuts Cancelled Large Granular Lymphs Cancelled # Lrg Granular Lymphs Cancelled Hairy Cells Cancelled Smudge Cells Cancelled Toxic Granulation Cancelled Toxic Vacuolation Cancelled Dohle Bodies Cancelled Edwar Rods Cancelled Platelet Estimate Cancelled Hypogranular Platelets Cancelled Clumped Platelets Cancelled Giant Platelets Cancelled Platelet Satelliting Cancelled RBC Morphology Cancelled Polychromasia Cancelled Hypochromasia Cancelled Poikilocytosis Cancelled Basophilic Stippling Cancelled Anisocytosis Cancelled Microcytosis Cancelled Macrocytosis Cancelled Spherocytes Cancelled Pappenheimer Bodies Cancelled Sickle Cells Cancelled Target Cells Cancelled Tear Drop Cells Cancelled Ovalocytes Cancelled Stomatocytes Cancelled Calles-[place] Bodies Cancelled Echinocytes Cancelled Acanthocytes (Spur) Cancelled Rouleaux Cancelled RBC Agglutinates Cancelled Schistocytes Cancelled RBC Morph Comment Cancelled Sezary Cell Cancelled POC Sodium (135-144) mmol/L Sodium POC Potassium (3.3-5.0) mmol/L Potassium POC Chloride (101-112) mmol/L Chloride Carbon Dioxide POC Total CO2 (24-31) mmol/L Anion Gap POC Anion Gap (16-25) mmol/L POC BUN (7-18) mg/dl BUN Creatinine POC Creatinine (0.6-1.3) mg/dl Est Cr Clr Drug Dosing Est GFR ( Amer) Est GFR (Non-Af Amer) BUN/Creatinine Ratio Glucose POC Glucose (70-99) mg/dl POC Glucose (other) (70-99) mg/dl Lactate 3.1 H* (0.4-2.0) mmol/L Calcium POC Ioniz Calcium Kvng (1.12-1.32) mmol/l Magnesium Total Creatine Kinase Prolactin 6.70 ng/ml Specimen Hemolysis 05/31/20 05/31/20 Range/Units 19:19 19:19 WBC 8.20 RBC 5.89 Hgb 12.7 L POC Hgb (14.0-18.0) g/dl Hct 40.8 L POC Hct (42-52) % MCV 69.3 L MCH 21.6 L MCHC 31.1 L RDW Std Deviation 38.6 RDW Coeff of Malina 15.5 H Plt Count 231 MPV 10.1 Immature Gran % (Auto) 0.1 Neut % (Auto) 80.5 Lymph % (Auto) 14.8 [place] % (Auto) 3.5 Eos % (Auto) 0.9 Baso % (Auto) 0.2 Neut # (Auto) 6.60 H Lymph # (Auto) 1.21 [place] # (Auto) 0.29 Eos # (Auto) 0.07 Baso # (Auto) 0.02 Immature Gran # (Auto) 0.01 Absolute Nucleated RBC Nucleated RBC % (auto) Neutrophils % (Manual) Band Neutrophils % Lymphocytes % (Manual) Prolymphocyte % Reactive Lymphs % (Man) Monocytes % (Manual) Eosinophils % (Manual) Basophils % (Manual) Metamyelocytes % (Man) Myelocytes % (Man) Promyelocytes % (Man) Blast Cells % (Manual) Plasma Cell % (Manual) Other Cells % Nucleated RBC % Neutrophils # (Manual) Band Neutrophils # Total Absolute Neuts Lymphocytes # (Manual) Prolymphocyte # Reactive Lymphs # Total Abs Lymphocytes Monocytes # (Manual) Eosinophils # (Manual) Basophils # (Manual) Metamyelocytes # (Man) Myelocytes # (Manual) Promyelocytes # (Man) Blast Cells # (Man) Plasma Cell # (Manual) Other Cells # Nucleated RBCs # (Man) Hypersegmented Neuts Hyposegmented Neuts Hypogranular Neuts Large Granular Lymphs # Lrg Granular Lymphs Hairy Cells Smudge Cells Toxic Granulation Toxic Vacuolation 2+ Dohle Bodies Edwar Rods Platelet Estimate Hypogranular Platelets Clumped Platelets Giant Platelets Platelet Satelliting RBC Morphology Polychromasia Hypochromasia Poikilocytosis Basophilic Stippling Anisocytosis Microcytosis Present Macrocytosis Spherocytes Pappenheimer Bodies Sickle Cells Target Cells Tear Drop Cells Ovalocytes Stomatocytes Calles-Corydon Bodies Echinocytes 1+ Acanthocytes (Spur) Rouleaux RBC Agglutinates Schistocytes RBC Morph Comment Sezary Cell POC Sodium (135-144) mmol/L Sodium 137 POC Potassium (3.3-5.0) mmol/L Potassium 3.7 POC Chloride (101-112) mmol/L Chloride 105 Carbon Dioxide 28 POC Total CO2 (24-31) mmol/L Anion Gap 4.0 POC Anion Gap (16-25) mmol/L POC BUN (7-18) mg/dl BUN 13 Creatinine 1.07 POC Creatinine (0.6-1.3) mg/dl Est Cr Clr Drug Dosing 91.0 Est GFR ( Amer) 85.8 Est GFR (Non-Af Amer) 74.0 BUN/Creatinine Ratio 11.7 Glucose 123 H POC Glucose (70-99) mg/dl POC Glucose (other) (70-99) mg/dl Lactate (0.4-2.0) mmol/L Calcium 8.6 POC Ioniz Calcium Kvng (1.12-1.32) mmol/l Magnesium 1.9 Total Creatine Kinase 524 H Prolactin ng/ml Specimen Hemolysis Imaging Data Radiologist's Impression: XR pelvis 1-2V routine CLINICAL HISTORY: Trauma COMPARISON: None. DISCUSSION: No pelvic fractures are visualized. There is no SI joint diastases. There is no symphysis diastases. There is contrast in the bladder secondary to a prior CT scan. IMPRESSION: No fractures identified. ACT 112: Negative or not required by law. Electronically signed by: Jamel Lyon M.D. 05/31/2020 7:34 PM Dictated: 05/31/201932 Transcribed: 05/31/201932 XR chest 1V portable CLINICAL HISTORY: Possible seizure. Patient found on the ground. COMPARISON STUDY: 05/08/2020 FINDINGS: The heart is enlarged. A ventriculoperitoneal shunt is visualized. There are subsegmental atelectatic changes in the left midlung zone. There are bibasilar opacities statistically atelectatic although infectious/inflammatory processes could appear similar[. There is mild central vascular prominence without evidence of overt failure. IMPRESSION: 1. Cardiomegaly 2. Bibasilar opacities, statistically atelectatic. ACT 112: Negative or not required by law. Electronically signed by: Jamel Lyon M.D. 05/31/2020 7:36 PM Dictated: 05/31/201933 Transcribed: 05/31/201933 CT abd pelvis IV con only CLINICAL HISTORY: Seizure. Patient found on ground. Possible abdominal injury. COMPARISON STUDY: None. TECHNIQUE: The patient was scanned in a dynamic helical fashion during intravenous administration of 90 cc of Optiray 320 A dose lowering technique was utilized adhering to the principles of ALARA. CT DOSE: 1217.80 mGy.cm FINDINGS: Lower chest: The heart is enlarged. There are basilar opacities likely atelectatic. There is small right pleural effusion. Liver: The contrast-enhanced liver is normal in size, contour, and attenuation. There is no intrahepatic biliary ductal dilatation. The hepatic veins and portal veins are patent. Gallbladder: Unremarkable. Spleen: Normal in size and attenuation. Pancreas: Unremarkable. Adrenal glands: There is mild bilateral adrenal limb thickening Kidneys: There is no CT evidence of acute renal injury. There are multiple bilateral subcentimeter renal hypodensities statistically representing cysts although several slightly exceed water attenuation Bowel: There are no transition zones indicate bowel obstruction. There is no pathologic interloop fluid. The appendix appears normal. There is no pneumatosis. There is no evidence of acute diverticulitis. There is mild fecal retention. Peritoneum: The distal portion of a ventriculoperitoneal shunt is visualized. There is minimal free pelvic fluid. There is no free intraperitoneal air. Vasculature: There is a 39 mm infrarenal abdominal aortic aneurysm. There is also aneurysmal dilatation at the level of the aortic bifurcation. Adenopathy: None. Pelvic viscera: There is mild prostatomegaly. There is a small fat-containing left inguinal hernia Skeletal structures: There is a corticated bony density located posterior to the left acetabulum. This is not felt to be acute. No acute fractures are visualized. IMPRESSION: 1. Small right pleural effusion and basilar atelectasis 2. Minimal free pelvic fluid 3. No evidence of acute intra-abdominal or pelvic injury 4. 39 mm infrarenal abdominal aortic aneurysm ACT 112: Negative or not required by law. Electronically signed by: Jamel Lyon M.D. 05/31/2020 6:56 PM Dictated: 05/31/201850 Transcribed: 05/31/201850 CT OF THE CERVICAL SPINE CLINICAL HISTORY: Head trauma. Possible seizure. Head pain. COMPARISON STUDY: No previous studies for comparison. CT DOSE: 1089.34 mGy.cm TECHNIQUE: CT scan of the cervical spine was performed from the skull base to the thoracic inlet. Images are reviewed in the axial, sagittal, and coronal planes. IV contrast was not administered for this examination. A dose lowering technique was utilized adhering to the principles of ALARA. FINDINGS: The visualized portions of the lung apices reveal no evidence of pneumothorax. The prevertebral soft tissues are normal. No fractures or subluxations are visualized. There are multilevel degenerative changes. There is a spinal curvature convex to the right. There is poor dentition with multiple dental apical abscesses. IMPRESSION: No evidence of acute fracture or traumatic subluxation. ACT 112: Negative or not required by law. Electronically signed by: Jamel Lyon M.D. 05/31/2020 6:51 PM Dictated: 05/31/201848 Transcribed: 05/31/201848 CT head/brain wo con CLINICAL HISTORY: Seizure. Head trauma. Head pain. COMPARISON STUDY: No previous studies for comparison. TECHNIQUE: Axial CT of the brain is performed from the vertex to the skull base. IV contrast was not administered for this examination. A dose lowering technique was utilized adhering to the principles of ALARA. CT DOSE: FINDINGS: There are postsurgical changes of a right frontal craniotomy. There are radiopaque densities anterior to the base of the frontal horns representing either vascular clips or embolic material. There is right frontal lobe encephalomalacia. There is right putamen encephalomalacia. There is a small area of right temporal lobe encephalomalacia. There is a right frontal ventriculostomy catheter which terminates within the body left lateral ventricle. There is mild ventricular dilatation likely secondary to volume loss. There is a cavum septum pellucidum. There is no CT evidence of acute cortical infarction. There is no midline shift. There is no evidence of acute hemorrhage. There are additional areas of encephalomalacia within the centrum semiovale bi laterally. No acute fractures are visualized.. There is no evidence of acute sinusitis. IMPRESSION: 1. Postsurgical changes with areas of right frontal and temporal lobe encephalomalacia 2. No acute intracranial findings. ACT 112: Negative or not required by law. Electronically signed by: Jamel Lyon M.D. 05/31/2020 6:49 PM Dictated: 05/31/201844 Transcribed: 05/31/201847 [facility] Narrative 1736: The patient was evaluated in room A10. A complete history and physical exam was performed. 1944: Vital signs stable. Patient alert and oriented x3. He is asking for urinal to urinate in. He no longer appears postictal. No neurological deficits at this time. 2021: Vital signs stable. Labs show an elevated lactic acid of 3.1. This thought to be due to the patient having a seizure. Is not thought to be due to infection as patient has no fever or leukocytosis. Prolactin level is within normal limits. CTs are within normal limits. I discussed the case with Dr. Gamble on-call neurology who states that the patient should be loaded with Keppra 1 g IV piggyback and be admitted to the hospital and have an MRI and neurology evaluation. He states he is worried the patient could have had a stroke. [facility] hospitalist Dr. Nelson was notified of the patient.. Impression & Plan Seizure Discharge Plan Visit Data Chief Complaint: Seizure Stated Complaint: SEIZURE, WEAKNESS LEFT SIDE ED Provider: Hamlet Mckeon Discharge Problem: Seizure Patient Disposition: Home - Self-Care Forms Stand Alone Forms: [facility], Virtual Emergency Department, Important Visit Information Prescriptions Prescriptions: No Action Eliquis 5 mg tablet 10 mg PO BID RF: 0 Entresto 24-26 mg Tablet 1 tab PO BID RF: 0 Humulin 70/30 U-100 Insulin 100 unit/mL (70-30) Suspension 15 unit SUBCUT QAM RF: 0 Humulin 70/30 U-100 Insulin 100 unit/mL (70-30) Suspension 10 unit SUBCUT QPM RF: 0 Humulin R Regular U-100 Insuln 100 unit/mL Solution 1 sliding scale dose SUBCUT USEASDIRECTD RF: 0 rosuvastatin 40 mg Tablet 40 mg PO DAILY RF: 0 carvedilol 25 mg Tablet 25 mg PO BID@0800,2000 Qty: 60 RF: 0 aspirin 81 mg Tablet,Delayed Release (Dr/Ec) 81 mg PO DAILY@0800 Qty: 30 RF: 0 bumetanide [Bumex] 2 mg Tablet 2 mg PO DAILY RF: 0 spironolactone 25 mg Tablet 25 mg PO BID RF: 0 Novolin 70/30 U-100 Insulin 100 unit/mL (70-30) Suspension 15 unit SUBCUT QAM RF: 0 Novolin 70/30 U-100 Insulin 100 unit/mL (70-30) Suspension 10 unit SUBCUT QPM RF: 0 Referrals Referrals: Samantha RMOERO [Primary Care Provider] -
[2020-05-31] MEDS ORDERED: levETIRAcetam 1,000 MG in 0.9 % SODIUM CHLORIDE 100 ML IV STA (20:16)
[2020-05-31 20:23] LABS: Echinocytes 1+; Microcytosis Present; Toxic Vacuolation 2+
--- NOTE | 2020-05-31 21:30 | History & Physical Report ---
Date of Service May 31, 2020 Assessment & Plan (1) Tonic clonic convulsion: Faisal Edmond is a 64-year-old male inmate with a past medical history of cerebral aneurysm removal with shunt placement at age 20, nonischemic cardiomyopathy with heart failure with reduced ejection fraction of 25%, hyperlipidemia, hypertension, history of PE on anticoagulation therapy, and former tobacco abuse who presents after having 2 episodes of seizures. Tonic-clonic seizure First seizure event per patient - Ct-H: There are postsurgical changes of a right frontal craniotomy. There are radiopaque densities anterior to the base of the frontal horns representing either vascular clips or embolic material. There is right frontal lobe encephalomalacia. There is right putamen encephalomalacia. There is a small area of right temporal lobe encephalomalacia. There is a right frontal ventriculostomy catheter which terminates within the body left lateral ventricle. There is mild ventricular dilatation likely secondary to volume loss. Patient has a history of craniotomy with cerebral aneurysm removal at age 20, no history of subsequent seizures or need for antiepileptics previously CThead shows no acute findings or signs of intracranial bleed or stroke Patient with some left-sided residual weakness, improving clinically Second seizure event terminated with Ativan given by EMS Case discussed with neurology by ED attending Admit to med/surge telemetry Neurology consulted Keppra 1 g loaded, continue 100 mg p.o. 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 BSG 123 on admission, no report of hypoglycemia -Hemoglobin A1c pending Insulin SSI weight-based Hx PE - Continue Apixaban - No hypoxia, RRR on admit DVT PPTx: on DOAC FENGI: NSS 70cc/hr while NPO pending seizure obs Dispo: MedTele Code: Full (2) Type 2 diabetes mellitus: (3) Acute systolic (congestive) heart failure: (4) Cardiomyopathy: (5) Tobacco abuse: (6) DVT prophylaxis: (7) Acute kidney injury: (8) HLD (hyperlipidemia): (9) HTN (hypertension): (10) Pulmonary embolism: History of Present Illness Chief Complaint: Seizure Primary Care Provider: HEATHER Singh Faisal Edmond is a 64-year-old male inmate with a past medical history of cerebral aneurysm removal with shunt placement at age 20, nonischemic cardiomyopathy with heart failure with reduced ejection fraction of 25%, hyperlipidemia, hypertension, history of PE on anticoagulation therapy, and former tobacco abuse who presents after having 2 episodes of seizures. Faisal reports he was in his otherwise normal state of health when he [facility] a seizure at the [facility]. He reports he has never had a previous seizure, and did not he feel lightheaded/dizzy/presyncopal/syncopal or with any other abnormal complaints prior to the seizure. He reports when the seizure came on he briefly remembers falling to the ground, does not remember the seizure itself, and remembers waking up after. Per the guards present his seizure lasted approximately 30 seconds. EMS was called and the patient experienced a second observed approximately 30sec tonic-clonic seizure for which she was prescribed Ativan. Patient endorses global weakness following seizures more pronounced on his left side. He reports he feels diffusely tired, and about 50% back to normal at time of assessment. At time of ER assessment his mental status was improving, although he was noted on intake to have an elevated lactic acid of 3.1. Case was discussed by ED physician with the on-call neurology service who recommended Keppra 1 g load and observation with neurology consultation. He denies chest pain, chest pressure, visual changes, sensory changes, numbness, tingling, cough, shortness of breath. Endorses feeling of left-sided heaviness improving. 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 Denies alcohol use. Allergies: No known drug allergies CODE STATUS: Full code, confirmed with patient Allergies Allergy/AdvReac Type Severity Reaction Status Date / Time No Known Allergies Allergy Verified 05/31/20 21:23 Home Medications Home Medications Medication Instructions Recorded Confirmed Type Humulin R Regular U-100 Insuln 1 sliding scale dose SUBCUT 03/30/19 05/31/20 History USEASDIRECTD rosuvastatin 40 mg PO DAILY 03/30/19 05/31/20 History aspirin 81 mg PO DAILY@0800 #30 tab 02/04/20 05/31/20 Rx carvedilol 25 mg PO BID@08,1999 #60 tab 02/04/20 05/31/20 Rx Entresto 1 tab PO BID 05/31/20 05/31/20 History Novolin 70/30 U-100 Insulin 10 unit SUBCUT QPM 05/31/20 05/31/20 History Novolin 70/30 U-100 Insulin 15 unit SUBCUT QAM 05/31/20 05/31/20 History bumetanide 2 mg PO DAILY 05/31/20 05/31/20 History spironolactone 25 mg PO BID 05/31/20 05/31/20 History apixaban [Eliquis] 5 mg PO BID #30 tab 06/01/20 Rx Past Med/Surg History Medical History CHF (congestive heart failure) Diabetes mellitus, type 2 IDDM Hyperlipidemia Hypertension Obesity Surgical History (Updated 06/01/20 @ 09:44 by Jas Bacon MD) Brain aneurysm REPAIR ()= NO FURTHER DETAILS Family History Mother Hypertension Father , victim of homicide in his early 60s. No problems noted. 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 NAD. Cooperative. HEENT: Atraumatic, normocephalic. No tongue lesions appreciated Pulm: CTAB A&P. -wheezes, -rales, -rhonchi. Symmetrical chest rise. No increase work of breathing. No respiratory distress. Cardiac: RRR, -mrg. Radial pulses intact and symmetrical. Abdominal: Nontender, nondistended, soft. BS present. CN II: Visual wise are full to confrontation. Pupils are equal and react to light and accomidation. Visual acuity grossly intact. CN III, IV, : At primary gaze, there is no eye deviation. EoM intact without nystagmus. No visual field cuts. CN V: Facial sensation is intact to soft touch in all 3 divisions bilaterally. CN VII: No facial asymmetry, full strength to eyebrow raise, smile, eye close, and cheek puff. CN VII: Hearing is grossly intact. CN IX, X: Phonation is normal without dysarthria. CN XI: Head turning intact CN XII: Tongue protrudes midline. Sensory: Light touch, pinprick intact in upper and low extremities without deficit or asymmetry. Strength: RUE: Shoulder flexion/extension/internal rotation/external rotation, elbow flexion/extension, finger flexion/extension, map colorer strength, interosseous 5/5 LUE: Shoulder flexion/extension/internal rotation/external rotation, elbow flexion/extension, finger flexion/extension, map colorer strength, interosseous 4+/5 RLE: Hip flexion, ankle plantar flexion/dorsiflexion 5/5 LLE: Hip flexion, ankle plantar flexion/dorsiflexion 5/5 Coordination: Fine finger movements are intact. Results & Data Results & Data ([facility]) Vital Signs (Past 12 Hours) Vital Signs Temp Pulse Resp BP Pulse Ox 05/31/20 20:00 69 24 138/74 97 05/31/20 19:51 74 98 05/31/20 19:40 84 96 05/31/20 19:31 108 H 97 05/31/20 19:30 105 H 186/173 H 97 05/31/20 19:20 96 H 98 05/31/20 19:10 89 96 05/31/20 19:01 85 99 05/31/20 19:00 90 165/87 H 97 05/31/20 18:50 98 H 95 05/31/20 18:49 100 H 96 05/31/20 17:31 37.5 C 88 13 148/84 H 96 Supervising Physician Co-Signing Physician Notes Attending addendum: I have physically seen this patient, have supervised the medical residents activities, and agree with the H&P unless as otherwise noted. Assessment and Plan: Tonic-clonic seizure- No previous occurrence History of right frontal craniotomy, right frontal lobe encephalomalacia, right frontal ventriculostomy catheter terminating within the body of the left lateral ventricle/chronic mild ventricular dilatation. Seizure precautions Keppra 1000 mg IV given in ED then 500 mg p.o. twice daily Order EEG Unclear if MRI can be ordered with present ventriculostomy Consult neurology HFrEF/hypertension- Continue carvedilol, Entresto, spironolactone and furosemide. Serial BMP and magnesium levels Diabetes mellitus- Continue 70/30 insulin Check hemoglobin A1c Patient Accu-Cheks before meals and at bedtime with NovoLog coverage per scale History of PE- Continue apixaban Remaining orders and notations as noted Resident Activity Tracking Resident Involvement: Resident Care Provided Care Provided: Adult Hospital Medicine (1) Pulmonary embolism Acute cor pulmonale presence: without acute cor pulmonale Chronicity: acute Pulmonary embolism type: unspecified Qualified Code(s): I26.99 - Other pulmonary embolism without acute cor pulmonale
[2020-06-01] MEDS ORDERED: GLUCOSE 10 TABS/TUBE PO PRN (00:11)
[2020-06-01] MEDS ORDERED: LORazepam 4 MG/8 ML VIAL IV PRN (00:11)
[2020-06-01] MEDS ORDERED: CARBOHYDRATES FOR HYPOGLYCEMIA PO PRN (00:11)
[2020-06-01] MEDS ORDERED: GLUCAGON FOR INJ 1 MG VIAL SQ PRN (00:11)
[2020-06-01] MEDS ORDERED: DEXTROSE 50% 50 ML SYRINGE IV PRN (00:11)
[2020-06-01] MEDS ORDERED: SODIUM CHLORIDE 0.9% 1000ML 1,000 ML IV SCH (00:11)
[2020-06-01] MEDS ORDERED: GLUCOSE 40% GEL 15 GM TUBE PO PRN (00:11)
[2020-06-01] MEDS ORDERED: ACETAMINOPHEN 325 MG TAB PO PRN (00:11)
[2020-06-01 06:24] LABS: Estimated Average Glucose 240 mg/dl
[2020-06-01] MEDS: carvediloL 25 MG TAB PO SCH ×3 (07:57→10:20)
[2020-06-01] MEDS: SPIRONOLACTONE 12.5 MG TAB PO SCH ×3 (07:57→10:20)
[2020-06-01] MEDS: ROSUVASTATIN CALCIUM 20 MG TAB PO SCH ×3 (07:58→10:20)
[2020-06-01] MEDS: levETIRAcetam 500 MG TAB PO SCH ×3 (07:58→10:20)
[2020-06-01] MEDS: SACUBITRIL-VALSARTAN 24-26 MG TAB PO SCH ×3 (07:58→10:20)
[2020-06-01] MEDS: BUMETANIDE 1 MG TAB PO SCH ×3 (07:58→10:20)
[2020-06-01] MEDS: INSULIN ASPART 100 UNITS/ML 3 ML PEN SC SCH ×2 (07:59→12:11)
[2020-06-01] MEDS: APIXABAN 5 MG TABLET PO SCH ×2 (08:35→12:11)
[2020-06-01] MEDS ORDERED: INSULIN GLARGINE SOLOSTAR 100 UNITS/ML 3 ML PEN SC SCH (09:00)
--- NOTE | 2020-06-01 09:08 | Electroencephalogram ---
EEG Procedure Note Date of Service June 01, 2020 Start / End Times Start Time: 0649 End Time: [address] Ríos History 64-year-old with history of right frontal temporal aneurysm surgery now with 2 generalized tonic-clonic seizures May 31 Home Medication List Home Medications Medication Instructions Recorded Confirmed Type Humulin R Regular U-100 Insuln 1 sliding scale dose SUBCUT 03/30/19 05/31/20 History USEASDIRECTD rosuvastatin 40 mg PO DAILY 03/30/19 05/31/20 History aspirin 81 mg PO DAILY@0800 #30 tab 02/04/20 05/31/20 Rx carvedilol 25 mg PO BID@799,1999 #60 tab 02/04/20 05/31/20 Rx apixaban [Eliquis] 10 mg PO BID 05/08/20 05/31/20 History bumetanide [Bumex] 2 mg PO DAILY 05/31/20 05/31/20 History insulin NPH and regular human 10 unit SUBCUT QPM 05/31/20 05/31/20 History [Novolin 70/30 U-100 Insulin] insulin NPH and regular human 15 unit SUBCUT QAM 05/31/20 05/31/20 History [Novolin 70/30 U-100 Insulin] sacubitril-valsartan [Entresto] 1 tab PO BID 05/31/20 05/31/20 History spironolactone 25 mg PO BID 05/31/20 05/31/20 History Inpatient Medication List Apixaban (Apixaban 5 Mg Tablet) 10 mg PO BID [facility] Stop: 07/01/20 08:59 Last Admin: 06/01/20 08:35 Dose: Not Given Documented by: [id number] Bumetanide (Bumetanide 1 Mg Tab) 2 mg PO DAILY [facility] Stop: 07/01/20 08:59 Last Admin: 06/01/20 08:35 Dose: Not Given Documented by: [id number] Carvedilol (Carvedilol 25 Mg Tab) 25 mg PO BID@799,1999 [facility] Stop: 07/01/20 07:59 Last Admin: 06/01/20 08:35 Dose: Not Given Documented by: [id number] Sodium Chloride (Nss 1000ml) 1,000 mls @ 70 mls/hr IV .[id number] [facility] Stop: 07/01/20 00:10 Last Admin: 06/01/20 00:35 Dose: 70 mls/hr Documented by: [id number] Insulin Aspart (Insulin Aspart 100 Units/Ml 3 Ml Pen) 0 units SC ACHS [place] Stop: 07/01/20 07:29 Last Admin: 06/01/20 07:59 Dose: Not Given Documented by: [id number] Cosigned by: [id number] Insulin Glargine (Insulin Glargine Solostar 100 Units/Ml 3 Ml Pen) 10 units SC BID [place] Stop: 07/01/20 08:59 Last Admin: 06/01/20 07:58 Dose: 10 units Documented by: [id number] Cosigned by: [id number] Levetiracetam (Levetiracetam 500 Mg Tab) 500 mg PO BID [place] Stop: 07/01/20 08:59 Last Admin: 06/01/20 08:35 Dose: Not Given Documented by: [id number] Rosuvastatin Calcium (Rosuvastatin Calcium 20 Mg Tab) 40 mg PO DAILY [place] Stop: 07/01/20 08:59 Last Admin: 06/01/20 08:35 Dose: Not Given Documented by: [id number] Sacubitril/Valsartan (Sacubitril-Valsartan 24-26 Mg Tab) 1 tab PO BID [place] Stop: 07/01/20 08:59 Last Admin: 06/01/20 08:35 Dose: Not Given Documented by: [id number] Spironolactone (Spironolactone 12.5 Mg Tab) 12.5 mg PO DAILY [place] Stop: 07/01/20 08:59 Last Admin: 06/01/20 08:35 Dose: Not Given Documented by: [id number] Discontinued Medications Sodium Chloride (Nss 1000ml) 1,000 mls @ 999 mls/hr IV .Q1H1M ONE Stop: 05/31/20 19:28 Last Infusion: 05/31/20 20:02 Dose: 0 mls/hr Documented by: [id number] Admin: 05/31/20 19:00 Dose: 999 mls/hr Documented by: [id number] Levetiracetam 1,000 mg/ Sodium (Chloride) 110 mls @ 440 mls/hr IV NOW STA Stop: 05/31/20 20:30 Last Infusion: 05/31/20 20:57 Dose: 0 mls/hr Documented by: [id number] Admin: 05/31/20 20:34 Dose: 440 mls/hr Documented by: [id number] Ioversol (Ioversol 100ml) 90 ml IV ONCE ONE Stop: 05/31/20 18:39 Last Admin: 05/31/20 18:39 Dose: 90 ml Documented by: [id number] Description This is a 21 electrode EEG with a single channel dedicated to limited EKG. The electrodes were placed in accordance with the International 10-20 system. Interpretation The predominant background activity consists of an irregular 5-7 Hz activity, of up to 40 mV in amplitude, seen symmetrically distributed over the posterior head regions bilaterally, spreading anteriorly bilaterally.. This activity had little attenuation with eye opening and other alerting procedures. Photic stimulation was performed and elicited no change in the background activity and no abnormal responses were seen. Hyperventilation was not performed . A minimal amount of muscle and movement artifact activity contaminated the recording and did not hinder interpretation to any significant degree. There were frequent IV pump artifact changes noted in the areas of T5 and T6 electrode symmetrically, occurring as isolated sharp transients. They correlated with the IV pump. Throughout the recording, no focal abnormalities or potentially epileptogenic discharges were seen. Patient did not enter into sleep. In summary, this EEG was abnormal, showing mild generalized slowing without focal abnormality or potentially epileptogenic discharges. Clinical Correlation The abscence of potentially epileptogenic activity does not exclude a seizure disorder, since interictally, EEGs can be normal. The mild generalized slowing is consistent with postictal state (or other encephalopathy ) [facility] EEG Procedure Codes Indication for Procedure (1) Tonic clonic convulsion: (2) Seizure: Neurology Neurology: [id number] EEG include record awake & drowsy
[2020-06-01] MEDS ORDERED: levETIRAcetam 500 MG in 0.9 % SODIUM CHLORIDE 100 ML IV SCH (09:30)
--- NOTE | 2020-06-01 09:49 | Neurology Consultation ---
Date of Consultation June 01, 2020 Assessment & Plan (1) Tonic clonic convulsion: (2) Seizure: (3) Status post cerebral aneurysm repair: patient had at least 2 brief generalized tonic-clonic convulsions. He had 1 in the [facility] and 1 witnessed by EMS. He found himself on the floor of his cell and this may have been a 1st seizure. He did not seem to have injury or head trauma. He was loaded with Keppra 1 g in the emergency room and has had no seizures since arriving at our institution. Currently he is doing well neurologically without focal neurologic deficits, meningeal signs, or obvious encephalopathy. CT scan of the head showed old encephalomalacia in the right frontal temporal head region with shunt placement and metallic artifact ( presumably the clip). If he had the surgery at age 20 that would be around 1975 and clips were not MRI compatible obviously. 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 He has no other toxic, metabolic, endocrine, or inflammatory disease identified as a cause so far. Recommendations: 1. Continue levetiracetam 500 mg twice a day for now. 2. I would be hesitant order an MRI given his old cerebral aneurysm clip from the . 3. increase activity as able. 4. Control blood pressure, glucose, and lipids as you are doing as this will help decrease stroke risk. Continue on 81 mg aspirin tablet daily as he has been doing. 5. He could be followed as an outpatient in Neurology. Overall, I spent a total of 60 minutes with this case including review of records, review of CT films, direct evaluation of the patient at bedside, and discussing the case with the patient at bedside, RN at bedside, and Dr. Zhao, including differential diagnosis and treatment options. History of Present Illness Reason for Consultation: 54-year-old, who I was asked to see at the request of Dr. Brush, for neurologic consultation regarding seizures Requesting Physician: Dr. Bruhs Attending Physician: Moises Brush MD History of Present Illness patient had a history of cerebral aneurysm repair at age 20 at [facility] in [place]. He had a shunt placed. He claims that he had no residual following this surgery (no weakness or numbness or physical issues). He never had any seizures either , and was never on anticonvulsants. Patient has a history of type 2 diabetes (on insulin), hypertension, and dyslipidemia for many years. He has nonischemic cardiomyopathy with congestive heart failure with decreased ejection fraction and in January of this year had a probable pulmonary embolus and has been on Eliquis. He has been on 81 mg aspirin tablet as well. He has been feeling well without any issues or illnesses as far as he knows. Yesterday he found himself waking up on the floor of his cell unable to move his limbs for about 30 seconds. He is not sure what happened and he did not hit his head. He was taken to the [facility] where he had a witnessed 30 second generalized tonic-clonic seizure. EMS were called and the EMS witnessed a generalized tonic-clonic seizure which was terminated with 2 mg of lorazepam IV. He arrived to the emergency room May 31 at 1731, with a temperature 37.5, pulse of 88, respiratory rate of 13, blood pressure 148/84, and O2 saturation 96%. He had some slurred speech and confusion, seemingly postictal. there was evidence that he had bit the left side of his tongue and he was incontinent of urine CBC showed mild anemia and Chem profile was unremarkable except for glucose 162. Prolactin was 6.7 and CK 524. Chest x-ray showed cardiomegaly. CT scan of the abdomen and pelvis showed a 39 mm abdominal aortic aneurysm. CT scan of the cervical spine showed no acute changes. CT scan of the head showed right frontal temporal encephalomalacia and shunt placement with metallic artifact signal likely from a clip. I reviewed these films EEG was done early this morning and showed mild generalized dysrhythmia consistent with postictal state. He was clinically confused some this morning but has cleared up nicely over the course of the morning. Currently he feels normal with no headache, confusion, dizziness, vision problems, weakness or numbness in the limbs, or significant fatigue. Allergies Allergy/AdvReac Type Severity Reaction Status Date / Time No Known Allergies Allergy Verified 05/31/20 21:23 Home Medications Home Medications Medication Instructions Recorded Confirmed Type Humulin R Regular U-100 Insuln 1 sliding scale dose SUBCUT 03/30/19 05/31/20 History USEASDIRECTD rosuvastatin 40 mg PO DAILY 03/30/19 05/31/20 History aspirin 81 mg PO DAILY@0800 #30 tab 02/04/20 05/31/20 Rx carvedilol 25 mg PO BID@0800,1999 #60 tab 02/04/20 05/31/20 Rx apixaban [Eliquis] 10 mg PO BID 05/08/20 05/31/20 History bumetanide [Bumex] 2 mg PO DAILY 05/31/20 05/31/20 History insulin NPH and regular human 10 unit SUBCUT QPM 05/31/20 05/31/20 History [Novolin 70/30 U-100 Insulin] insulin NPH and regular human 15 unit SUBCUT QAM 05/31/20 05/31/20 History [Novolin 70/30 U-100 Insulin] sacubitril-valsartan [Entresto] 1 tab PO BID 05/31/20 05/31/20 History spironolactone 25 mg PO BID 05/31/20 05/31/20 History Patient History Medical History CHF (congestive heart failure) Diabetes mellitus, type 2 IDDM Hyperlipidemia Hypertension Obesity Surgical History Brain aneurysm REPAIR ()= NO FURTHER DETAILS Family History Mother Hypertension Father , victim of homicide in his early 60s. No problems noted. 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 Feels Safe at Home: Yes Safety Concerns: Feels Safe At This Time Review of Systems Constitutional: no fever, no fatigue and no weakness Eyes: no diplopia, no eye pain and no worsening vision Ear, Nose, Mouth, Throat: no ear pain, no tinnitus, no hearing loss, no dizziness, no hoarseness and no dysphagia Respiratory: no cough and no dyspnea Cardiovascular: no chest pain, no palpitations and no lightheadedness Gastrointestinal: no abdominal pain, no nausea and no vomiting Genitourinary: no dysuria and no urinary incontinence Musculoskeletal: no back pain, no neck pain, no radicular pain, no joint pain and no myalgia Integumentary: no rash and no lesions Neurologic: no gait abnormality, no localized weakness, no generalized weakne ss, no tingling, no numbness, no tremor(s), no abnormal movements, no headache(s ), no abnormal speech, no confusion and no memory loss Psychiatric: no depression, no irritability, no anxiety, no difficulty concentrating, no confusion and no hallucinations Endocrine: no fatigue and no flushing Hematologic / Lymphatic: no easy bleeding and no easy bruising Allergy / Immunological: no urticaria and no problem reported Exam (Neuro) Physical Exam: The patient is right-handed. The patient is awake, alert, and attentive. Speech is normal without any aphasia or dysarthria. he can name objects, repeat phrases, and has normal spontaneous speech. Mentation and thought processes are intact, with orientation to perso n, place and time, and normal fund of knowledge. Attention and concentration are normal. Mood and affect are normal and appropriate. General appearance and grooming are normal. Short and long-term memory are intact to conversation. The discs are sharp with positive venous pulsations bilaterally. There are no exudates, hemorrhages, or blood vessel changes seen. Pupils are 3 mm bilaterally and reactive to light. Extraocular eye muscles are intact without nystagmus. Visual acuity and visual wise seem normal grossly to confrontation. There are no deficits to sensation in the face in all 3 distributions of the fifth cranial nerve bilaterally. Corneal reflexes are positive bilaterally. Facial strength and symmetry was normal bilaterally. Hearing seems normal to whisper and finger rub bilaterally. Palate moves well without asymmetry. There is normal sternocleidomastoid and trapezius (shoulder shrug) strength bilaterally. Tongue is midline with good strength bilaterally. Neck has a full range of motion without discomfort. There are no cervical bruits bilaterally. Cervical, thoracic, and lumbar spine are nontender to palpation. Gait was not tested but stands sitting up in bed is reasonable With outstretched arms there is no drift. There are no resting, postural, or action tremors. There is no ataxia with finger to nose testing. There is good facility in the hands. No other abnormal involuntary movements are noted. Motor strength is 5/5 diffusely in the arms bilaterally including deltoids, biceps, triceps, brachioradialis, wrist flexors and extensors, ob tech, and intrinsic hand muscles. Motor strength is 5/5 diffusely in the legs bilaterally including hip flexors, quadriceps, hamstrings, gastrocnemius, tibialis anterior, tibialis posterior, and Peroneii muscles. Toe extensors are normal and there is good bulk in the extensor digitorum brevis muscles bilaterally. The limbs have good tone without rigidity or spasticity. There is no atrophy noted in the muscles. Muscle bulk is normal, there is no tenderness to palpation, no myotonia to percussion, and no fasciculations seen. Sensory examination is intact to touch and pin throughout all 4 limbs diffusely. Reflexes are 1/4 in the biceps, triceps, brachioradialis, quadriceps, and Achilles tendons bilaterally. There is no clonus bilaterally. Toes are downgoing with plantar stimulation bilaterally. Peripheral pulses are present and of normal quality distally in all 4 limbs. There is mild peripheral edema in the ankles and feet Results & Data ([facility]) Vital Signs (Past 12 Hours) Vital Signs Temp Pulse Pulse Resp BP BP BP 06/01/20 09:00 75 06/01/20 07:30 36.9 C 69 20 155/77 H 06/01/20 03:07 36.9 C 64 18 149/75 H 06/01/20 00:43 37.1 C 16 170/96 H 05/31/20 23:01 81 05/31/20 23:00 68 166/92 H 05/31/20 22:50 78 22 05/31/20 22:40 73 05/31/20 22:31 77 24 05/31/20 22:30 73 14 159/87 H 05/31/20 22:20 83 22 05/31/20 22:10 79 05/31/20 22:01 72 14 05/31/20 22:00 69 16 168/102 H 05/31/20 21:50 76 05/31/20 21:40 77 24 05/31/20 21:31 79 23 05/31/20 21:30 74 19 160/82 H 05/31/20 21:20 91 H 05/31/20 21:10 81 Pulse Ox 06/01/20 09:00 06/01/20 07:30 96 06/01/20 03:07 97 06/01/20 00:43 100 05/31/20 23:01 96 05/31/20 23:00 94 05/31/20 22:50 95 05/31/20 22:40 97 05/31/20 22:31 95 05/31/20 22:30 96 05/31/20 22:20 97 05/31/20 22:10 95 05/31/20 22:01 100 05/31/20 22:00 96 05/31/20 21:50 95 05/31/20 21:40 94 05/31/20 21:31 98 05/31/20 21:30 99 05/31/20 21:20 99 05/31/20 21:10 94 PG Care Time/CCT Total # of Minutes Spent Total Time Spent with Patient: Total time spent is greater than 50% in coordination of care (as documented) at patient's floor/unit and/or counseling patient: Coding Level of Care Code 31361 Initial Inpt Care Lvl 3 Diagnoses Tonic clonic convulsion G40.409 Seizure R56.9 Status post cerebral aneurysm repair Z98.890; Z86.79 Time Spent (min) 60
--- NOTE | 2020-06-01 10:23 | Discharge Summary ---
Date of Service June 01, 2020 Admission HPI Per Admitting Provider Faisal Edmond is a 64-year-old male inmate with a past medical history of cerebral aneurysm removal with shunt placement at age 20, nonischemic cardiomyopathy with heart failure with reduced ejection fraction of 25%, hy perlipidemia, hypertension, history of PE on anticoagulation therapy, and former tobacco abuse who presents after having 2 episodes of seizures. Faisal reports he was in his otherwise normal state of health when he experienced a seizure at the correction facility. He reports he has never had a previous seizure, and did not he feel lightheaded/dizzy/presyncopal/syncopal or with any other abnormal complaints prior to the seizure. He reports when the seizure came on he briefly remembers falling to the ground, does not remember the seizure itself, and remembers waking up after. Per the guards present his seizure lasted approximately 30 seconds. EMS was called and the patient experienced a second observed approximately 30sec tonic-clonic seizure for which she was prescribed Ativan. Patient endorses global weakness following seizures more pronounced on his left side. He reports he feels diffusely tired, and about 50% back to normal at time of assessment. At time of ER assessment his mental status was improving, although he was noted on intake to have an elevated lactic acid of 3.1. Case was discussed by ED physician with the on-call neurology service who recommended Keppra 1 g load and observation with neurology consultation. He denies chest pain, chest pressure, visual changes, sensory changes, numbness, tingling, cough, shortness of breath. Endorses feeling of left-sided heaviness improving. 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 Denies alcohol use. Allergies: No known drug allergies CODE STATUS: Full code, confirmed with patient Admission Exam Per Admitting Provider General: A&Ox3. NAD. Cooperative. HEENT: Atraumatic, normocephalic. No tongue lesions appreciated Pulm: CTAB A&P. -wheezes, -rales, -rhonchi. Symmetrical chest rise. No increase work of breathing. No respiratory distress. Cardiac: RRR, -mrg. Radial pulses intact and symmetrical. Abdominal: Nontender, nondistended, soft. BS present. CN II: Visual wise are full to confrontation. Pupils are equal and react to light and accomidation. Visual acuity grossly intact. CN III, IV, : At primary gaze, there is no eye deviation. EoM intact without nystagmus. No visual field cuts. CN V: Facial sensation is intact to soft touch in all 3 divisions bilaterally. CN VII: No facial asymmetry, full strength to eyebrow raise, smile, eye close, and cheek puff. CN VII: Hearing is grossly intact. CN IX, X: Phonation is normal without dysarthria. CN XI: Head turning intact CN XII: Tongue protrudes midline. Sensory: Light touch, pinprick intact in upper and low extremities without deficit or asymmetry. Strength: RUE: Shoulder flexion/extension/internal rotation/external rotation, elbow flexion/extension, finger flexion/extension, wine pasteurizer strength, interosseous 5/5 LUE: Shoulder flexion/extension/internal rotation/external rotation, elbow flexion/extension, finger flexion/extension, wine pasteurizer strength, interosseous 4+/5 RLE: Hip flexion, ankle plantar flexion/dorsiflexion 5/5 LLE: Hip flexion, ankle plantar flexion/dorsiflexion 5/5 Coordination: Fine finger movements are intact. Principal Diagnosis seizure Discharge Exam Constitutional well developed, well nourished and cooperative; no acute distress and not ill appearing Respiratory normal respiratory effort, lungs clear to auscultation able to speak in complete sentences; no respiratory distress, no cough and no audible wheezes Auscultation: no crackles, no rales, no rhonchi and no wheezes Cardiovascular RRR, no murmur, no edema Heart Sounds: normal S1 and normal S2; no gallop, no murmur and no cardiac rub Neurologic normal touch/pain/proprioception, plantar reflexes intact bilaterally, moves all extremities and awake; no focal motor deficits, no meningeal signs and not confused Speech / Cognition: normal speech and no expressive aphasia Motor/Sensory: no tremor Cranial Nerves: PERRL, normal accommodation and EOM intact bilaterally Discharge Data Allergies Allergy/AdvReac Type Severity Reaction Status Date / Time No Known Allergies Allergy Verified 05/31/20 21:23 Consultations 05/31/20 20:45 ED Decision to Admit Stat 06/01/20 00:11 Consult Neurology Routine Ordered Studies 05/31/20 17:42 CT head/brain wo con Stat 05/31/20 17:46 CT cervical spine wo con Stat 05/31/20 17:53 CT abd pelvis IV con only Stat Hospital Course (1) Tonic clonic convulsion: Faisal Edmond is a 64-year-old male inmate with a past medical history of cerebral aneurysm removal with shunt placement at age 20, nonischemic cardiomyopathy with heart failure with reduced ejection fraction of 25%, hyperlipidemia, hypertension, history of PE on anticoagulation therapy, and former tobacco abuse who presents after having 2 episodes of seizures. Tonic-clonic seizure - presented to hospital after first tonic-clonic seizure per patient without inciting incident, second seizure terminated with ativan by EMS - CT Head: There are postsurgical changes of a right frontal craniotomy. There are radiopaque densities anterior to the base of the frontal horns representing either vascular clips or embolic material. There is right frontal lobe encep halomalacia. There is right putamen encephalomalacia. There is a small area of right temporal lobe encephalomalacia. There is a right frontal ventriculostomy catheter which terminates within the body left lateral ventricle. There is mild ventricular dilatation likely secondary to volume loss. - seizure most likely secondary to encephalomalacia, no electrolyte abnormalities, low likelihood of mass causing new onset seizures - loaded with 1 g IV Keppra in ER, 500 mg BID daily going forward - EEG showing slowing with no spikes, postictal. - neurology recommends following up in 2-4 weeks and continuing daily BID Keppra therapy. Type 2 diabetes mellitus - A1c 10.0 All other chronic medical conditions managed per home regimens. (2) Type 2 diabetes mellitus: (3) Acute systolic (congestive) heart failure: (4) Cardiomyopathy: (5) Tobacco abuse: (6) DVT prophylaxis: (7) Acute kidney injury: (8) HLD (hyperlipidemia): (9) HTN (hypertension): (10) Pulmonary embolism: Total Time Total Time Spent Total Time Spent (In Minutes): <30 Discharge Plan Discharge Items Patient Disposition: Correction[facility] Facility Reason For Visit: SEIZURE Discharge Diagnosis: seizure Activity: Resume your previous activity Non-emergency contact: Primary Care Provider Call non-emergency contact if: your symptoms worsen Follow-up/Referrals: Samantha ROMERO [Primary Care Provider] - Diet: Heart Healthy Addtl Attending Provider Instructions: Faisal Edmond is a 64-year-old male inmate with a past medical history of cerebral aneurysm removal with shunt placement at age 20, nonischemic cardiomyopathy with heart failure with reduced ejection fraction of 25%, hyperlipidemia, hypertension, history of PE on anticoagulation therapy, and former tobacco abuse who presents after having 2 episodes of seizures. Tonic-clonic seizure First seizure event per patient, described as falling on floor and being stuck there. Second seizure event terminated with Ativan by EMS. - Ct-H: There are postsurgical changes of a right frontal craniotomy. There are radiopaque densities anterior to the base of the frontal horns representing either vascular clips or embolic material. There is right frontal lobe encephalomalacia. There is right putamen encephalomalacia. There is a small area of right temporal lobe encephalomalacia. There is a right frontal ventriculostomy catheter which terminates within the body left lateral ventricle. There is mild ventricular dilatation likely secondary to volume loss. Patient has a history of craniotomy with cerebral aneurysm removal at age 20, no history of subsequent seizures or need for antiepileptics previously CThead shows no acute findings or signs of intracranial bleed or stroke No residual weakness. - EEG showing nonspecific post-ictal slowing. Recommendation from neuro: continue Keppra 500 mg BID daily. MRI not indicated with metal shunt in place. 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 For most people with diabetes, this level should be below 8%, and for many much lower. To help improve blood sugar levels, provider may consider restating Metformin. Patient may also need some insulin dose changes to help get blood sugars back into a safe range most of the time. Recommend checking blood sugars before meals and bedtime to help identify blood sugar trends and where insulin dose may need adjusted. Pending Studies at Discharge: No Stand-Alone Forms: [facility] Skilled Items Patient informed of condition?: Yes Discharge Level of Care: Other Communicable Disease: No Discharge Prognosis: Stable Lines: None Urinary Catheter: No Medications and DC Order Prescriptions: New Eliquis 5 mg Tablet 5 mg PO BID Qty: 30 RF: 0 Continued Humulin R Regular U-100 Insuln 100 unit/mL Solution 1 sliding scale dose SUBCUT USEASDIRECTD RF: 0 rosuvastatin 40 mg Tablet 40 mg PO DAILY RF: 0 carvedilol 25 mg Tablet 25 mg PO BID@0800,2000 Qty: 60 RF: 0 aspirin 81 mg Tablet,Delayed Release (Dr/Ec) 81 mg PO DAILY@0800 Qty: 30 RF: 0 bumetanide 2 mg Tablet 2 mg PO DAILY RF: 0 spironolactone 25 mg Tablet 25 mg PO BID RF: 0 Novolin 70/30 U-100 Insulin 100 unit/mL (70-30) Suspension 15 unit SUBCUT QAM RF: 0 Novolin 70/30 U-100 Insulin 100 unit/mL (70-30) Suspension 10 unit SUBCUT QPM RF: 0 Entresto 24-26 mg Tablet 1 tab PO BID RF: 0 Discontinued Eliquis 5 mg tablet 10 mg PO BID RF: 0 Discharge Orders: Discharge Order (Routine); Ordered 06/01/20 Ordered By: Camryn Zhao Admission Data Admit Date/Time: 05/31/20 21:34 Attending Provider: Moises Brush Admit Provider: Tha Ríos Primary Care Provider: Samantha ROMERO Other Providers: Moises Brush ; Jas Bacon ; Camryn Zhao Other Interventions: Discharge Summary Assessment (RN) Last Done: 06/01/20 12:16 Supervising Physician Co-Signing Physician Notes I personally examined the patient and verified all bernal points of history and exam, discussed case, and agree with decision making with Dr Zhao. feeling better wants to get out of hospital, neuro input appreciated vitals noted nad heent nc at mmm breathing unlabored no accessory muscles good effort skin no rashes no pallor or icterus no focal neuro deficits seizure - agree anticonvulsants since structural brain disease, does appear safe for discharge otherwise as above Resident Activity Tracking Resident Involvement: Resident Care Provided Care Provided: Adult Hospital Medicine
--- NOTE | 2020-06-01 19:34 | Billing Data ---
Date of Service June 01, 2020 Coding Level of Care Code 01627 Initial Inpt Care Lvl 3
--- NOTE | 2020-06-02 08:14 | Billing Data ---
Date of Service June 02, 2020 Coding Level of Care Code D/C Day Management <30 mins
== END 2020-06-01 13:54 | DRG 101 ==
LOC: ED 17:30 → 2N 21:34 → INTOOBSV 21:34 → 2N 23:04

== ENCOUNTER 2020-06-05 14:14 | Observation (INO) ==
--- NOTE | 2020-06-05 15:01 | Emergency Department Note ---
Impression & Plan Unspecified convulsions, Hypomagnesemia ED Provider Note Provider: Robert Glover MD DATE OF SERVICE: 06/05/2020 CHIEF COMPLAINT: Seizure-like activity HISTORY OF PRESENT ILLNESS: Patient is a 64-year-old male with a history of aneurysm status post repair and [employer]ICAL [employer]CH[employer] shunt presenting today reportedly with seizure-like activity. Patient was admitted earlier in the week and started on Keppra with concern for seizure-like activity prior to his arrival. Had a unremarkable EEG. Saw neurology at that time and started on Keppra. Initially seen in the emergency primarily today for seizure-like activity and given additional Keppra and sent back to [facility] on increased doses of Keppra. Had been at the [facility] and evidently had 8 seizure-like activity events there according to EMS report. Reportedly the patient's head turns to the right and both upper arm shake. The patient was vocal during this and remembers most of it. States he might of had some kind of aura or prewarning prior to it. Denies any new trauma or fever. States mild headache. Patient's seizure-like events reportedly lasted 30 seconds to a minute. Was given 2 mg of IM Ativan as well as 250 mg of oral Depakote. Patient continued to have episodes and given the recurrence was sent here for further evaluation. No recurrence for EMS. REVIEW OF SYSTEMS: A total of 10 review of systems was obtained and negative e xcept as stated above in the HPI. PAST MEDICAL HISTORY: As noted above and includes hypertension, diabetes, cardiomyopathy MEDICATIONS: Reviewed home medications. Significantly on Eliquis. SOCIAL HISTORY: [employer] inmate. Former smoker. PHYSICAL EXAM: GENERAL: alert and oriented in no acute distress on stretcher, is shackled to the bed Head: Atraumatic. EYES: No injection, discharge or icterus. PERRL, EOMI. NECK: Trachea midline. Supple. ENT: Mucous membranes pink and moist. LUNGS: Airway patent. No retractions. Breath sounds clear with good air entry bilaterally. HEART: Regular rate and rhythm. No chest wall tenderness ABDOMEN: Soft and non-tender, without guarding or rebound. SKIN: Acyanotic, warm, dry, without rashes EXTREMITIES: Without swelling, tenderness or deformity NEUROLOGICAL: No focal deficits. No aphasia. No facial droop or slurred speech. EK bpm normal sinus rhythm. No PVCs. No ST segment elevation. Lateral T wave inversions are noted. QTc within normal limits. CONTINUOUS CARDIAC MONITORING: was ordered and showed a Normal sinus rhythm with a rate of 79 bpm. Patient's hypertension was referred to the hospitalist HOSPITAL COURSE: 1428 Patient was first seen and H&P performed. 1448 discussed with neurology. 1613 Patient reassessed and updated. Patient was resting in bed no further events 1652 Have discussed with patient and the [facility] plan of care. Hospitalist to be contacted. Patient's laboratory studies and imaging reviewed. Differential includes Epilepsy, infection, hypoglycemia, electrolyte abnormalities, cardiac sources, intracerebral event, trauma, toxicologic, neurologic, syncope, as well as other pathologies. IMPRESSION/MEDICAL DECISION MAKING: Given these multiple events unsure if they represent true seizure activity. No incontinence postictal period or generalized loss of consciousness. Could be focal but reportedly emphasized both upper extremities doing this shaking. Discussed with neurology. Did repeat blood work and since he is on an anticoagulant a CT of the head. Discussed options of either increasing medication further observation here versus transfer to a tertiary center. In discussion, will start on Depakote at this time and monitor for stability on this second AED. Chronic troponin elevation is noted less than previous and the patient without significant ischemic changes and again not having chest pain. Believe this is likely again chronic. Prolactin not significantly elevated. Given the repeated episodes in discussion with neurology will start on Depakote and observe further here in the hospital. The hospitalist to be contacted. Hypomagnesemia is noted given some IV magnesium supplementation. Moderately hypertensive here. Patient later stated he did not want to stay in hospital. Discussed with him and [facility] and advised that given events he needed to be further evaluated in hospital. Hospitalist contacted. DIAGNOSIS: Recurrent spells, hypomagnesemia DISPOSITION: Hospitalist will evaluate Past Med/Surg History Medical History (Updated 06/05/20 @ 16:16 by Robert Glover M.D.) Cardiomyopathy CHF (congestive heart failure) Diabetes mellitus, type 2 IDDM Hyperlipidemia Hypertension Obesity Pulmonary embolism Seizure Surgical History (Updated 06/05/20 @ 15:38 by Emilia Mccloud MD) Brain aneurysm REPAIR ()= NO FURTHER DETAILS Status post cerebral aneurysm repair Family History Mother Hypertension Father , victim of homicide in his early 60s. No problems noted. Social History Smoking Status: Current every day smoker Number of Years Since Quit: 1; Hx Alcohol Use: No Hx Substance Use: No Preferred Language: Spanish Communication Ability: Effective Seasonal Tax Preparer Required: No Beliefs That Will Affect Care: None marital status: Single Current Living Situation: Other Current Living Situation Comment: [facility] current occupational status: retired other: Former [employer] worker Feels Safe at Home: Yes Allergies Allergies Allergy/AdvReac Type Severity Reaction Status Date / Time No Known Allergies Allergy Verified 06/05/20 15:12 Home Meds Home Medications Medication Instructions Recorded Confirmed rosuvastatin 40 mg PO DAILY 03/30/19 06/05/20 Entresto 1 tab PO BID 05/31/20 06/05/20 Novolin 70/30 U-100 Insulin 10 unit SUBCUT QPM 05/31/20 06/05/20 Novolin 70/30 U-100 Insulin 15 unit SUBCUT QAM 05/31/20 06/05/20 bumetanide 2 mg PO DAILY 05/31/20 06/05/20 spironolactone 25 mg PO BID 05/31/20 06/05/20 aspirin 81 mg PO DAILY 06/05/20 06/05/20 glucose 0 g PO BID 06/05/20 06/05/20 insulin regular human [Novolin R 0 unit SUBCUT UD 06/05/20 06/05/20 Regular U-100 Insuln] levetiracetam [Keppra] 1,000 mg PO BID 06/05/20 06/05/20 lorazepam [Ativan] 2 mg IM HS PRN 06/05/20 06/05/20 Previous Rx's Medication Instructions Recorded carvedilol 25 mg PO BID@0800,2000 #60 tab 02/04/20 apixaban [Eliquis] 5 mg PO BID #30 tab 06/01/20 Results & Data (ED) Vital Signs Vital Signs - 24 hr 06/05/20 14:15 06/05/20 14:17 06/05/20 15:23 Temperature 37.0 C Temperature Source Oral Pulse Rate 79 72 Pulse Rate from SpO2 Sensor 82 72 Pulse Rhythm Regular Respiratory Rate 18 22 Respiratory Effort / Characteristics Non-Labored Spontaneous Respiratory Depth Normal Respiratory Pattern Regular Blood Pressure 149/86 H 149/86 H 179/104 H Blood Pressure Mean 107 98 119 Pulse Oximetry 98 98 97 Oxygen Delivery Method Room Air Room Air Sepsis Recent Fever Within 48 Hours No Sepsis New/Unexplained Change in Mental Status No Sepsis Action Taken by Nursing No Action Required 06/05/20 15:30 06/05/20 16:00 06/05/20 16:03 Temperature Temperature Source Pulse Rate 76 76 75 Pulse Rate from SpO2 Sensor 75 Pulse Rhythm Respiratory Rate 28 H 26 H 28 H Respiratory Effort / Characteristics Respiratory Depth Respiratory Pattern Blood Pressure 174/103 H 181/94 H 179/97 H Blood Pressure Mean 111 126 111 Pulse Oximetry 100 Oxygen Delivery Method Sepsis Recent Fever Within 48 Hours Sepsis New/Unexplained Change in Mental Status Sepsis Action Taken by Nursing 06/05/20 16:04 06/05/20 16:30 06/05/20 16:31 Temperature Temperature Source Pulse Rate 85 79 75 Pulse Rate from SpO2 Sensor Pulse Rhythm Respiratory Rate 28 H Respiratory Effort / Characteristics Respiratory Depth Respiratory Pattern Blood Pressure 182/106 H Blood Pressure Mean 146 Pulse Oximetry Oxygen Delivery Method Sepsis Recent Fever Within 48 Hours Sepsis New/Unexplained Change in Mental Status Sepsis Action Taken by Nursing Laboratory Data Result diagrams: 06/05/20 15:10 06/05/20 15:10 Lab Results 06/05/20 06/05/20 06/05/20 Range/Units 15:10 15:10 15:10 WBC 6.20 (4.8-10.8) K/uL RBC 6.33 H (4.7-6.1) M/uL Hgb 14.2 (14.0-18.0) g/dL Hct 45.0 (42-52) % MCV 71.1 L (80-100) fL MCH 22.4 L (25-34) pg MCHC 31.6 L (32-36) g/dL RDW Std Deviation 40.7 (36.4-46.3) fL RDW Coeff of Malina 15.7 H (11.5-14.5) % Plt Count 230 (130-400) K/uL MPV 10.5 H (7.4-10.4) fL Immature Gran % (Auto) 0.2 % Neut % (Auto) 57.3 % Lymph % (Auto) 32.6 % [place] % (Auto) 6.5 % Eos % (Auto) 3.1 % Baso % (Auto) 0.3 % Neut # (Auto) 3.56 (1.4-6.5) K/uL Lymph # (Auto) 2.02 (1.2-3.4) K/uL [place] # (Auto) 0.40 (0.11-0.59) K/uL Eos # (Auto) 0.19 (0-0.5) K/uL Baso # (Auto) 0.02 (0-0.2) K/uL Immature Gran # (Auto) 0.01 (0.00-0.02) K/uL Sodium 136 (136-145) mmol/L Potassium 4.5 (3.5-5.1) mmol/L Chloride 102 (98-107) mmol/L Carbon Dioxide 30 (21-32) mmol/L Anion Gap 4.0 (3-11) BUN 12 (7-18) mg/dl Creatinine 1.33 (0.6-1.4) mg/dl Est Cr Clr Drug Dosing 70.3 ml/min Est GFR ( Amer) 65.9 Est GFR (Non-Af Amer) 56.9 BUN/Creatinine Ratio 9.4 L (10-20) Glucose 210 H (70-99) mg/dl Calcium 9.3 (8.5-10.1) mg/dl Magnesium 1.7 L (1.8-2.4) mg/dl Total Bilirubin 0.5 (0.2-1) mg/dl AST 35 (15-37) U/L ALT 47 (12-78) U/L Alkaline Phosphatase 70 (45-117) U/L Troponin I 0.092 H* (0-0.045) ng/ml Total Protein 8.4 H (6.4-8.2) gm/dl Albumin 2.8 L (3.4-5.0) gm/dl Globulin 5.6 H (2.5-4.0) gm/dl Albumin/Globulin Ratio 0.5 L (0.9-2) Prolactin 9.15 ng/ml Specimen Hemolysis Urine Color Urine Appearance (Clear) Urine pH (4.5-7.5) Ur Specific [place] (1.000-1.030) Urine Protein (Negative) Urine Glucose (UA) (Negative) Urine Ketones (Negative) Urine Blood (Negative) Urine Nitrite (Negative) Urine Bilirubin (Negative) Urine Urobilinogen (Negative) Ur Leukocyte Esterase (Negative) Urine WBC (Auto) (0-5) /hpf Urine RBC (Auto) (0-4) /hpf U Hyaline Cast (Auto) (0-5) /lpf U Epithel Cells (Auto) (0-5) /lpf Urine Bacteria (Auto) (Negative) 06/05/20 Range/Units 16:15 WBC (4.8-10.8) K/uL RBC (4.7-6.1) M/uL Hgb (14.0-18.0) g/dL Hct (42-52) % MCV (80-100) fL MCH (25-34) pg MCHC (32-36) g/dL RDW Std Deviation (36.4-46.3) fL RDW Coeff of Malina (11.5-14.5) % Plt Count (130-400) K/uL MPV (7.4-10.4) fL Immature Gran % (Auto) % Neut % (Auto) % Lymph % (Auto) % [place] % (Auto) % Eos % (Auto) % Baso % (Auto) % Neut # (Auto) (1.4-6.5) K/uL Lymph # (Auto) (1.2-3.4) K/uL [place] # (Auto) (0.11-0.59) K/uL Eos # (Auto) (0-0.5) K/uL Baso # (Auto) (0-0.2) K/uL Immature Gran # (Auto) (0.00-0.02) K/uL Sodium (136-145) mmol/L Potassium (3.5-5.1) mmol/L Chloride (98-107) mmol/L Carbon Dioxide (21-32) mmol/L Anion Gap (3-11) BUN (7-18) mg/dl Creatinine (0.6-1.4) mg/dl Est Cr Clr Drug Dosing ml/min Est GFR ( Amer) Est GFR (Non-Af Amer) BUN/Creatinine Ratio (10-20) Glucose (70-99) mg/dl Calcium (8.5-10.1) mg/dl Magnesium (1.8-2.4) mg/dl Total Bilirubin (0.2-1) mg/dl AST (15-37) U/L ALT (12-78) U/L Alkaline Phosphatase (45-117) U/L Troponin I (0-0.045) ng/ml Total Protein (6.4-8.2) gm/dl Albumin (3.4-5.0) gm/dl Globulin (2.5-4.0) gm/dl Albumin/Globulin Ratio (0.9-2) Prolactin ng/ml Specimen Hemolysis Urine Color Yellow Urine Appearance Clear (Clear) Urine pH 7.5 (4.5-7.5) Ur Specific [place] 1.021 (1.000-1.030) Urine Protein 2+ H (Negative) Urine Glucose (UA) 2+ H (Negative) Urine Ketones Trace H (Negative) Urine Blood Negative (Negative) Urine Nitrite Negative (Negative) Urine Bilirubin Negative (Negative) Urine Urobilinogen Negative (Negative) Ur Leukocyte Esterase Negative (Negative) Urine WBC (Auto) 1-5 (0-5) /hpf Urine RBC (Auto) 0-4 (0-4) /hpf U Hyaline Cast (Auto) 1-5 (0-5) /lpf U Epithel Cells (Auto) 20-30 H (0-5) /lpf Urine Bacteria (Auto) Negative (Negative) Administered Medications Valproic Acid 500 mg/ Dextrose 55 mls @ 55 mls/hr IV ONE STA Stop: 06/05/20 19:43 Last Admin: 06/05/20 19:10 Dose: 55 mls/hr Documented by: [id number] Discontinued Medications Valproic Acid 500 mg/ Dextrose 55 mls @ 55 mls/hr IV NOW ONE Stop: 06/05/20 17:29 Last Infusion: 06/05/20 18:40 Dose: 0 mls/hr Documented by: [id number] Admin: 06/05/20 17:37 Dose: 55 mls/hr Documented by: [id number] Magnesium Sulfate/Dextrose (Magnesium Sulfate / D5w) 1 gm in 100 mls @ 100 mls/hr IV NOW STA Stop: 06/05/20 17:51 Last Admin: 06/05/20 18:26 Dose: 100 mls/hr Documented by: [id number] Sodium Chloride (Nss 1000ml) 1,000 mls @ 125 mls/hr IV .Q8H [place] Stop: 07/05/20 18:14 Last Admin: 06/05/20 18:28 Dose: 125 mls/hr Documented by: [id number] Labetalol HCl (Labetalol Hcl Iv 5 Mg/Ml 20ml) 10 mg IV NOW STA Stop: 06/05/20 18:28 Last Admin: 06/05/20 18:30 Dose: 10 mg Documented by: [id number] Cosigned by: [id number] Labetalol HCl (Labetalol Hcl Iv 5 Mg/Ml 20ml) 10 mg IV NOW STA Stop: 06/05/20 18:47 Last Admin: 06/05/20 19:11 Dose: 10 mg Documented by: [id number] Cosigned by: [id number] Lorazepam (Lorazepam 2 Mg/4 Ml Vial) Confirm Administered Dose 2 mg .ROUTE .STK- MED ONE Stop: 06/05/20 19:06 Last Admin: 06/05/20 19:12 Dose: 2 mg Documented by: [id number] Discharge Plan Visit Data Chief Complaint: Seizure Stated Complaint: seizure like activity ED Provider: Robert Glover Discharge Problem: Unspecified convulsions, Hypomagnesemia Patient Disposition: Admitted As Inpatient Discharge Instructions Interventions: ED Discharge Assessment Last Done: 06/05/20 18:29 Discharge Problem: Unspecified convulsions Qualifiers: Convulsion type: unspecified Qualified Code(s): R56.9 - Unspecified convulsions
--- NOTE | 2020-06-05 15:29 | CT Scan Report ---
CT OF THE HEAD WITHOUT CONTRAST CLINICAL HISTORY: seizures COMPARISON STUDY: Head CTs May 31, 2020 and June 05, 2020. CT DOSE: 614.27 mGy.cm TECHNIQUE: Helical axial images of the head were obtained without IV contrast. Automated exposure con trol was utilized for the study. A dose lowering technique was utilized adhering to the principles o f ALARA. FINDINGS: No acute intracranial hemorrhage, midline shift or mass effect is present. The ventricular system is stable. Right frontal ventriculostomy catheter is unchanged in position. The basilar cister ns are patent. Artifact from suspected coils adjacent to the anterior falx within the expected locati on of the anterior cerebral arteries is again noted. Multifocal encephalomalacia, most evident within the right frontal and temporal lobes is unchanged. There are no findings to suggest acute dural sinu s thrombosis or acute territorial infarct. There is mild sinus mucosal thickening. Mastoid air cells are clear. There is calvarial fracture. IMPRESSION: 1. No acute intracranial findings. No change in appearance of the brain. Right frontal and temporal e ncephalomalacia. 2. No change in position of the right frontal ventriculostomy catheter. Stable ventricular system. ACT 112: Negative or not required by law. Electronically signed by: Nicola Deleon M.D. 06/05/2020 3:27 PM
[2020-06-05 15:43] LABS: Basophils # (auto) 0.02 K/uL (0-0.2); Basophils % (auto) 0.3 %; Eosinophils # (auto) 0.19 K/uL (0-0.5); Eosinophils % (auto) 3.1 %; Hemoglobin 14.2 g/dL (14.0-18.0); Immature Granulocytes # (auto) 0.01 K/uL (0.00-0.02); Immature Granulocytes % (auto) 0.2 %; Lymphocytes # (auto) 2.02 K/uL (1.2-3.4); Lymphocytes % (auto) 32.6 %; Mean Corpuscular Hemoglobin 22.4 pg (25-34); Mean Corpuscular Hgb Conc 31.6 g/dL (32-36); Mean Corpuscular Volume 71.1 fL (80-100); Mean Platelet Volume 10.5 fL (7.4-10.4); Monocytes % (auto) 6.5 %; Neutrophils # (auto) 3.56 K/uL (1.4-6.5); Neutrophils % (auto) 57.3 %; Platelet Count 230 K/uL (130-400); RDW Coefficient of Variation 15.7 % (11.5-14.5); RDW Standard Deviation 40.7 fL (36.4-46.3); Red Blood Count 6.33 M/uL (4.7-6.1)
[2020-06-05 15:53] LABS: Albumin Globulin Ratio 0.5 (0.9-2); Albumin Level 2.8 gm/dl (3.4-5.0); BUN Creatinine Ratio 9.4 (10-20); Bilirubin,Total 0.5 mg/dl (0.2-1); Calcium 9.3 mg/dl (8.5-10.1); Creatinine Clr Calc Pharmacy 70.3 ml/min; Est GFR (African American) 65.9; Est GFR (Non-African American) 56.9; Globulin 5.6 gm/dl (2.5-4.0); Magnesium 1.7 mg/dl (1.8-2.4); Potassium 4.5 mmol/L (3.5-5.1); Total Protein 8.4 gm/dl (6.4-8.2); Troponin I 0.092 ng/ml (0-0.045)
[2020-06-05 16:30] LABS: Appearance Urine Clear (Clear); Bacteria Urine Automated Negative (Negative); Bilirubin Urine Negative (Negative); Blood Urine Negative (Negative); Color Urine Yellow; Epithelial Cell Urine Auto 20-30 /lpf (0-5); Glucose Urine UA 2+ (Negative); Ketones Urine Trace (Negative); Leukocyte Esterase Urine Negative (Negative); Nitrite Urine Negative (Negative); RBC Urine Automated 0-4 /hpf (0-4); Specific Gravity Urine 1.021 (1.000-1.030); Urobilinogen Urine Negative (Negative); pH Urine 7.5 (4.5-7.5)
[2020-06-05] MEDS ORDERED: VALPROATE SOD 500 MG in DEXTROSE 5% 50 ML IV ONE (16:30)
[2020-06-05 16:47] LABS: Protein Urine 2+ (Negative); Sulfosalicylic Acid Urine Positive (Negative)
[2020-06-05] MEDS ORDERED: MAGNESIUM SULFATE / D5W 1 GM/100 ML BAG IV STA (16:52)
--- NOTE | 2020-06-05 18:01 | History & Physical Report ---
Date of Service June 05, 2020 Assessment & Plan (1) Status epilepticus due to refractory complex partial seizures: Motor (left sided tonic)/Autonomic (hypertensive/tachycardic) Collateral history from alf consistent with prior discharge/neuro consult that he has no focal deficits at baseline. Therefore not returning to baseline in between seizures and would represent status epilepticus. Transferred to ICU for continuing care. Seizure activity now less frequent after Ativan 2 mg IV, Depakote 1 g IV. We will continue Depakote 500 mg IV 3 times daily and Keppra 1 g IV twice daily as previously discussed with Dr Bacon. Consult neurology - consider lumbar puncture as per discussion with Dr. Bacon. Unclear why he is having seizures 44 years after his old brain injury although the focus does appear to the encephalomalacia ?fall on caused concussion/seizure vs. ?non-compliance with antihypertensives causing hypertensive emergency (refused Bumex, Coreg, Aldactone on ). I suspect the latter explanation given worsening seizures over the course of today can be explained with him missing his usual antihypertensives (no routine meds given prior to morning ER visit or during ER stay) causing current hypertensive emergency. However that does not explain why he had 3 seizures this morning prior to his ER visit after starting on Keppra last admission. He did not take Keppra on and but he has reportedly been compliant for the past 2 days per Samantha [facility] notes ? witnessed. No fever or elevated WBC to suggest infective etiology although given [employer] shunt is a potential source of infection. (2) Complex partial seizure: Appears to have impaired consciousness during the seizure, although usually aware he has had a seizure afterwards. ER note from earlier today reports witnessed seizure by nurses with him talking throughout suggestive of simple focal motor seizure. Left sided tonic seizure without clonic phase (I did not observe his LLE move however this was in handcuffs). Most pronounced in his neck (left SCM) and upper extremity (biceps and wrist flexion, limited due to handcuffs). Eyelids open and both eyes rolled superiorly. EEG stat - discussed with ICU team (3) Hypertensive emergency: Suspect cause of increased frequency of seizures today after missing his usual antihypertensives. Labetalol 10mg IV x2 given in PCU. Discussed with Dr. Curtis [Business Solution Analyst] and the patient will be started on a nicardipine IV drip in ICU. We will defer restarting his usual carvedilol, Bumex, Entresto, spironolactone to ICU when patient is safe to swallow. (4) Status post cerebral aneurysm repair: From prior neurology consult he appears to have had this around 1975 with a HOSPITAL[employer] TE[employer] MEM[employer] shunt in place. (5) Type 2 diabetes mellitus: HbA1c 10 [June 01, 2020] Will defer insulin management to ICU. History of noncompliance likely contributing. (6) Chronic systolic heart failure: If patient is safe to swallow recommend restarting carvedilol, Entresto, Bumex, spironolactone. Monitor for acute heart failure and need for diuretics if patient remains on nicardipine drip alone. (7) Noncompliance with medication regimen: Notable history of this. Need to stress importance of taking his medication on time. Likely patient will continue to return to the ER if he remains noncompliant. (8) DVT prophylaxis: Will defer continuing Eliquis 5 mg p.o. twice daily to ICU team Admission and Anticipated Discharge Date Admission Date: 06/04/2020 History of Present Illness Chief Complaint: Seizure-like activity Primary Care Provider: [facility] Samantha Faisal Edmond is a 64-year-old male from [facility] current smoker with uncontrolled T2DM and recent diagnosis of seizures due to right frontotemporal encephalomalacia s/p cerebral aneurysm repair and [employer] shunt (in 1975) presents to the ER for the second time today due to ongoing seizure like activity. The patient reports knowing when the seizures are coming on and when he has them, his head turns to the left and arms shake. He reports having multiple seizures after discharge earlier today from the emergency room. Patient is orientated x3. No tongue biting, urine or bowel incontinence. Directly prior to transporting patient to the PCU. He had a witnessed seizure by his ER nurse which she reported was very consistent with a seizure -upper limb shaking, head turned to the left, foaming at the mouth, eyes rolled back. Telemetry was reviewed to assess for arrhythmia during this episode and although artifactual during seizure therapies to be regular QRS complexes there was no significant arrhythmia prior or post seizure activity, other than significantly more tachycardic post seizure. On arrival in PCU I was informed he continued to have seizure-like activity. Two of these were witnessed by myself. The patient became stiff on the left side of his body with increased tone most notable in his left sternocleidomastoid. His left arm also had significant increased tone. There was no jerking movements. He was unresponsive throughout. Eyes open, rolled superiorly. No tongue biting, urine or bowel incontinence. Lasted for approximately 2 minutes. Rapid return to conscious state where he was aware he had a seizure but not that I been talking to him during it. Very consistent with a focal motor tonic seizure +/- sympathetic autonomic with post seizure hypertension and tachycardia. Labetalol 10 mg IV x2 given due to hypertensive encephalopathy. Discussed case with Dr. Bacon - recommended additional 500 mg IV Depakote followed by 500 mg IV 3 times daily in addition to Keppra 1 g IV twice daily, stat EEG, consider lumbar puncture in a.m, unable to perform MRI. Unable to start IV nicardipine or labetalol in PCU. In addition I was unsure where the patient was returning to his baseline state between seizure episodes which were occurring 15 minutes apart. Discussed with Dr Curtis - accepted to ICU and recommended start on nicardipine IV drip. Handed over care to Daniel Gross PA-C. After transfer to ICU collateral history obtained from SUBHA Don @ [facility]. Seizure activity described as head turning to the left with left arm robe up above his head, alert and orientated during this, post ictal left facial droop and left-sided weakness not resolved since after his first seizure this morning. Confirmed baseline is ambulatory without aids, no focal neurological deficits, left-sided weakness or facial droop. First time he had this left-sided weakness was prior to his admission on May 31. Initial concern was for stroke due to initial complaint of equilibrium off and left- sided weakness prior to his witnessed seizure (unclear if he had a seizure prior to this). Patient remembers briefly falling to the ground but denied any presyncopal symptoms to prior providers. He was admitted and started on Keppra (loaded with 1g IV). Discharged the following day on Keppra 500mg PO BID with neurological deficits. The patient refused Keppra at [facility] on . Compliant with Keppra for the past 2 days although I am unclear if this is witnessed. Only medication he has refused for the last 2 days is aspirin. This morning he had 3 seizures. sBP elevated after these however once more rested SBP in 130s. He received 1g Keppra PO at 6 AM but had an additional seizure therefore was sent to the ER. Witnessed seizure by nurses in the ER this morning, ER physician discussed with Dr. Bacon -> 1g Keppra IV and PO dose increased 500mg -> 1g BID and discharged. No Ativan was given. None of his morning antihypertensives were given prior, during or after ER visit. He returned to the [facility] at [facility] around 9:30 AM. Around 11:30 AM patient had a further 8 seizures 15 minutes apart. Depakote 250mg PO and 2 mg IM Ativan given. 15 minutes later he had another seizure therefore was sent back to the ER. He had no witnessed seizure in the ER until right before transfer to PCU (see above). Patient has a history with noncompliance with medication although reportedly has improved since his NSTEMI in January. Recent refusals of medication: Refused bumex , , Refused coreg , Refused keppra , (confirmed he took this on and , higher dose given this morning as above) Refused Aspirin , Refused aldactone Allergies Allergy/AdvReac Type Severity Reaction Status Date / Time No Known Allergies Allergy Verified 06/05/20 15:12 Home Medications Home Medications Medication Instructions Recorded Confirmed Type rosuvastatin 40 mg PO DAILY 03/30/19 06/05/20 History carvedilol 25 mg PO BID@0800,1999 #60 tab 02/04/20 06/05/20 Rx Entresto 1 tab PO BID 05/31/20 06/05/20 History Novolin 70/30 U-100 Insulin 10 unit SUBCUT QPM 05/31/20 06/05/20 History Novolin 70/30 U-100 Insulin 15 unit SUBCUT QAM 05/31/20 06/05/20 History bumetanide 2 mg PO DAILY 05/31/20 06/05/20 History spironolactone 25 mg PO BID 05/31/20 06/05/20 History apixaban [Eliquis] 5 mg PO BID #30 tab 06/01/20 06/05/20 Rx aspirin 81 mg PO DAILY 06/05/20 06/05/20 History glucose 0 g PO BID 06/05/20 06/05/20 History insulin regular human [Novolin R 0 unit SUBCUT UD 06/05/20 06/05/20 History Regular U-100 Insuln] levetiracetam [Keppra] 1,000 mg PO BID 06/05/20 06/05/20 History lorazepam [Ativan] 2 mg IM HS PRN 06/05/20 06/05/20 History Past Med/Surg History Medical History Cardiomyopathy CHF (congestive heart failure) Diabetes mellitus, type 2 IDDM Hyperlipidemia Hypertension Obesity Pulmonary embolism Seizure Surgical History Brain aneurysm REPAIR ()= NO FURTHER DETAILS Status post cerebral aneurysm repair Family History Mother Hypertension Father , victim of homicide in his early 60s. No problems noted. 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 Feels Safe at Home: Yes Review of Systems Review of Systems: All systems reviewed & are unremarkable except as noted in HPI & below Physical Exam Constitutional: well developed; + not well nourished and no acute distress Eyes: + eyelid abnormality (Left drooping), PERRL and EOM intact bilaterally; no nystagmus Neck: trachea midline Respiratory: normal respiratory effort, lungs clear to auscultation Cardiovascular: Rate/Rhythm: regular rhythm and + tachycardic Heart Sounds: no murmur Extremities: normal capillary refill and + pedal edema (1+ equal to knees bilaterally) Gastrointestinal (Abdomen): normal bowel sounds, soft, nontender, no hepatosplenomegaly Skin: no rashes, warm and dry Neurologic: + focal motor deficit (Left-sided arm and leg weakness, questionable neglect) and awake; not confused Speech / Cognition: + abnormal speech (Slurred) Motor/Sensory: + pronator drift (Left-sided); no tremor Cranial Nerves: PERRL, EOM intact bilaterally, tongue midline, able to rotate head bilaterally, able to elevate shoulders bilaterally and no nystagmus; + abnormal facial strength (Left-sided facial droop) Psychiatric: Orientation: alert and oriented x 3 Genitourinary: no CVA tenderness Results & Data Results & Data ([facility]) Vital Signs (Past 12 Hours) Vital Signs Temp Pulse Resp BP Pulse Ox 06/05/20 17:30 63 13 154/78 H 06/05/20 17:01 72 15 06/05/20 17:00 66 11 L 162/80 H 06/05/20 16:31 75 06/05/20 16:30 79 182/106 H 06/05/20 16:04 85 28 H 06/05/20 16:03 75 28 H 179/97 H 06/05/20 16:00 76 26 H 181/94 H 06/05/20 15:30 76 28 H 174/103 H 100 06/05/20 15:23 72 22 179/104 H 97 06/05/20 14:17 149/86 H 98 06/05/20 14:15 37.0 C 79 18 149/[address] OF THE HEAD WITHOUT CONTRAST IMPRESSION: 1. No acute intracranial findings. No change in appearance of the brain. Right frontal and temporal encephalomalacia. 2. No change in position of the right frontal ventriculostomy catheter. Stable ventricular system. ECG Rate (beats per minute): 67 Rhythm: normal sinus Findings: + T-wave inversion (Anterolateral) Comparison ECG Date: from (June 05, 2020, 7:35am) Change: the following changes noted (Dynamic increasing T wave inversion in anterior lateral leads) Code Status & VTE Plan Code Status Full VTE Prophylaxis Plan VTE Prophylaxis will be ordered: No Critical Care Time Critical Care Time: Yes Total Critical Care Time: 35 Seizure management with Ativan, Depakote, PG Care Time/CCT Total # of Minutes Spent Total Time Spent with Patient: Total time spent is greater than 50% in coordination of care (as documented) at patient's floor/unit and/or counseling patient: Critical Care Time: Yes Total Critical Care Time: 35 Coding Level of Care Code 84168 Initial Inpt Care Lvl 3 Diagnoses Status epilepticus due to refractory complex partial seizures G40.211 Complex partial seizure G40.209 Hypertensive emergency I16.1 Status post cerebral aneurysm repair Z98.890; Z86.79 Type 2 diabetes mellitus E11.9 Chronic systolic heart failure I50.22 Noncompliance with medication regimen Z91.14 DVT prophylaxis Z29.9 Additional Codes Critical Care Time - Critical Care Time: Yes ([id number])
[2020-06-05] MEDS ORDERED: ONDANSETRON INJ 2 MG/ML 2 ML VIAL IV PRN (18:15)
[2020-06-05] MEDS ORDERED: POLYETHYLENE (MIRALAX) 17 GM PACK PO PRN (18:15)
[2020-06-05] MEDS ORDERED: ACETAMINOPHEN 325 MG TAB PO PRN (18:15)
[2020-06-05] MEDS ORDERED: SODIUM CHLORIDE 0.9% 1000ML 1,000 ML IV SCH (18:15)
[2020-06-05] MEDS ORDERED: STAT IV Infusion **Titration per Protocol STA ×2 (18:26→19:25)
[2020-06-05] MEDS ORDERED: LABETALOL HCL IV 5 MG/ML 20ML IV STA ×2 (18:27→18:46)
[2020-06-05] MEDS ORDERED: VALPROATE SOD 500 MG in DEXTROSE 5% 50 ML IV STA (18:44)
[2020-06-05] MEDS ORDERED: LABETALOL HCL 300 MG in DEXTROSE 5% 240 ML IV ONE (18:45)
[2020-06-05] MEDS ORDERED: LORazepam 2 MG/4 ML VIAL ONE (19:05)
[2020-06-05] MEDS ORDERED: LORazepam 2 MG/4 ML VIAL IV STA (19:11)
--- NOTE | 2020-06-05 20:04 | Critical Care Consultation ---
Date of Consultation June 05, 2020 Assessment & Plan (1) Admitted to intensive care unit: Reason Critically Ill: 64-year-old male presenting with breakthrough seizure-like activity with approximately 8 seizures a day requiring escalating doses of anticonvulsants as well as benzodiazepines. Patient requiring close monitoring for breakthrough seizure activity and possible need for airway intervention in the event of ongoing breakthrough seizure-like activity. NEURO - * CAM ICU: NEGATIVE * Seizures: * Patient initially admitted on 05/31 with initial seizures x2. In his postictal state the patient noted having global weakness, however he was noted to have LEFT greater than right sided weakness. This has appeared to be typical after a seizure-like activity. * Patient was loaded with anticonvulsants earlier today while in the emergency department. * Upon return, the patient has had persistent episodes of convulsive-like LEFT upper extremity contractures and seizure-like activity requiring admission. * Received Keppra as well as Depakote and eventually Ativan. * Upon my assessment, the patient is awake, alert, and oriented. He has an LEFT-sided facial droop and LEFT upper extremity weakness with no other overt findings. Mentally and cognitively, the patient is appropriate o therwise. * CT of the head x2 today were unremarkable. * Patient was noted to be extremely hypertensive with pressures in the 200s systolically. * Question degree of hypertensive emergency and subsequent hypertensive encephalopathy which may be worsening underlying seizure-like disorder. * Has had negative EEG in the past. While I would agree with emergent EEG, the patient is having no findings at this time otherwise which would recommend spot EEG at this moment. * Certainly, if the patient were to persist with ongoing seizure-like activity, patient would likely warrant transfer to facility where 24-hour EEG monitoring would be available. * Currently, the patient has been aggressively loaded with anticonvulsants as well as benzodiazepines. * Goal to maintain blood pressures with systolics ranging from 140s to 180s. We will utilize nicardipine drip as needed. * Hopefully we see improvement with blood pressure control alone. * Improvement in LEFT upper extremity weakness with adequate control blood pressure. * Will add CTA of the head and neck for evaluation of possible vaso-occlusive disease as the patient cannot undergo MRI. * Again, low threshold for transfer in the event of breakthrough seizures as the patient would require 24-hour EEG monitoring which is not available at this institution. * Appreciate neurology consultation. CARDIAC/VASCULAR - * Hypertensive emergency: * Initially treated with labetalol. * Agree with nicardipine drip. Goal systolic blood pressures 140s to 180s. * NSTEMI: * Likely secondary to profound hypertension. * Will trend troponins. * EKG without significant ST changes. * No complaints of chest pain. * EKG: Normal sinus rhythm at 67 bpm. T wave inversions noted laterally which are unchanged from EKG on 01/28/20. QTc 429 ms. * ECHO (01/29/20): Dilated LV, EF 20-25%, Hypokinesis of the LV w/ Akinesis noted in some locations. * Monitor on telemetry. RESPIRATORY - * History of COPD and pulmonary emboli currently anticoagulated on apixaban. * Saturating well at this time. * Low threshold for intubation for airway management for ongoing seizure-like activity. GI/NUTRITION - * N.p.o. at this time. RENAL/LYTES - * Hypomagnesemia: * Actively being replaced. - * No concerns at this time. * Stallings in place - Strict I&Os. ENDO - * DMII * BSGs per unit protocol. ISS --> gtt per unit policy. HEME - * Stable H&H * Monitor for s/s bleeding in the patient currently on Apixaban. ID - * No immediate concerns for infection at this time. * Monitor fever curve. LINES/IV ACCESS - * PIVs x2 * Stallings DVT PROPHYLAXIS - * Continue home Eliquis dosing. * SCDs I have personally spent 45 minutes of critical care time in the direct management of this patient. This is a life/limb threatening event. This includes time spent evaluating patient, direct bedside care, chart review, placing orders, interpretation of diagnostic studies, discussion with consultants, patient, and family members, as well as other required patient management activities. This time is exclusive of all separately billable procedures, and teaching time and separate from and in addition to any other critical care service time. Thank you for allowing us to participate in the care of this patient. Please refer to my attending physician's documentation for any further recommendations. 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 The patient was seen in this facility earlier this month for breakthrough seizures. Apparently during that time, the patient was found on the ground of his cell. Is uncertain if he struck his head at that time. The patient was discharged and placed on Keppra for seizure activity. He had an unremarkable EEG during the time of admission. The patient was seen in this facility earlier in the day with breakthrough seizure activity. He was loaded with Depakote. He had no seizure-like activity at that time. The patient had breakthrough seizure activity at the present described as LEFT upper extremity contracture. He received IM Ativan at some point prior to arrival in the emergency department. Patient was found to be markedly hypertensive in the emergency department. He was subsequently admitted to the telemetry floor for further evaluation management. While on the floor, the patient was noted to have a form of focal LEFT-sided seizure-like activity. He received 2 mg IV Ativan. No tonic-clonic seizure activity appreciated. No airway compromise noted. Patient received IV labetalol for profound hypertension. Patient received additional loading dose of Depakote at the recommendation of neurology. Upon my evaluation in room 219, the patient is awake, alert, and oriented. He provides accurate date, location, and person. He was noted to have a LEFT-sided facial droop and LEFT upper extremity weakness with decreased range of motion. In conversation with hospitalist attending, it had been reported to him initially from emergency staff that this is not new and occurs after seizure- like activity. Patient informs me that the LEFT upper extremity weakness has been going on for the last 3 days. Patient denies any headaches. He reports feeling thirsty and is requesting cranberry juice. Otherwise, he denies any headaches, dizziness, blurry vision, chest pain, palpitations, shortness of breath, nausea, vomiting, dizziness, lightheadedness, or weakness into other extremity. Allergies Allergy/AdvReac Type Severity Reaction Status Date / Time No Known Allergies Allergy Verified 06/05/20 15:12 Home Medications Home Medications Medication Instructions Recorded Confirmed Type rosuvastatin 40 mg PO DAILY 03/30/19 06/05/20 History carvedilol 25 mg PO BID@0800,1999 #60 tab 02/04/20 06/05/20 Rx Entresto 1 tab PO BID 05/31/20 06/05/20 History Novolin 70/30 U-100 Insulin 10 unit SUBCUT QPM 05/31/20 06/05/20 History Novolin 70/30 U-100 Insulin 15 unit SUBCUT QAM 05/31/20 06/05/20 History bumetanide 2 mg PO DAILY 05/31/20 06/05/20 History spironolactone 25 mg PO BID 05/31/20 06/05/20 History apixaban [Eliquis] 5 mg PO BID #30 tab 06/01/20 06/05/20 Rx aspirin 81 mg PO DAILY 06/05/20 06/05/20 History glucose 0 g PO BID 06/05/20 06/05/20 History insulin regular human [Novolin R 0 unit SUBCUT UD 06/05/20 06/05/20 History Regular U-100 Insuln] levetiracetam [Keppra] 1,000 mg PO BID 06/05/20 06/05/20 History lorazepam [Ativan] 2 mg IM HS PRN 06/05/20 06/05/20 History Patient History Medical History Cardiomyopathy CHF (congestive heart failure) Diabetes mellitus, type 2 IDDM Hyperlipidemia Hypertension Obesity Pulmonary embolism Seizure Surgical History Brain aneurysm REPAIR ()= NO FURTHER DETAILS Status post cerebral aneurysm repair Family History Mother Hypertension Father , victim of homicide in his early 60s. No problems noted. 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 All else were negative. Physical Exam Physical Exam: VITAL SIGNS - Vital signs and nursing notes were reviewed. GENERAL - 64-year-old male appearing older than his stated age who is in no acute distress. Communicates well with provider and answers questions appropriately. HEAD - Normocephalic, Atraumatic. No Vo's Sign or Raccoon's Eyes. No depressed skull fractures palpable. EYES - PERRL with EOMI bilaterally. Sclera anicteric. Palpebral conjunctiva pink and moist with no injection noted. EARS - No deformities of external structures noted on gross examination bilaterally. NOSE - Midline and without cyanosis. No epistaxis or purulent drainage noted. MOUTH/OROPHARYNX - Without perioral cyanosis. Buccal mucosa pink and moist and without leukoplakia. NECK - Neck with FROM. Supple to palpation. No lymphadenopathy noted. No nuchal rigidity. LUNGS - Chest wall symmetric without accessory muscle use, intercostals retractions, or central cyanosis. Normal vesicular breath sounds CTA B/L. No wheezes, rales, or rhonchi appreciated. CARDIAC - RRR with S1/S2. No murmur, rubs, or gallops appreciated. ABDOMEN - Abdominal contour obese without pulsations or visible masses. BS normoactive all four quadrants. No tenderness, palpable masses, hepatosplenomegaly, or ascites noted. EXTREMITIES - No pretibial edema present. +3/5 radial and dorsalis pedis pulses palpated throughout. 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 NEUROLOGIC -LEFT-sided facial droop noted with inability to smile or raise brow on the LEFT. Positive weakness of the LEFT upper extremity with decreased range of motion as well as automobile or truck rental dispatcher strength with strength rated a +2/5 on physical exam. Equal strength in the bilateral lower extremities. No other focal deficits appreciated. PSYCH - A&Ox3 and cooperates fully with examiner. Pt is very pleasant and interacts well with examiner. Asks for something to drink. Provides accurate date, time, and location. Provides historical information. Results & Data Results & Data ([facility]) Vital Signs (Past 12 Hours) Vital Signs Temp Pulse Pulse Resp BP BP BP 06/05/20 18:46 227/138 H 06/05/20 18:44 197/103 H 06/05/20 18:33 176/98 H 06/05/20 18:29 16 06/05/20 18:25 195/110 H 06/05/20 18:06 37.3 C 84 16 207/94 H 06/05/20 17:30 63 13 154/78 H 06/05/20 17:01 72 15 06/05/20 17:00 66 11 L 162/80 H 06/05/20 16:31 75 06/05/20 16:30 79 182/106 H 06/05/20 16:04 85 28 H 06/05/20 16:03 75 28 H 179/97 H 06/05/20 16:00 76 26 H 181/94 H 06/05/20 15:30 76 28 H 174/103 H 06/05/20 15:23 72 22 179/104 H 06/05/20 14:17 149/86 H 06/05/20 14:15 37.0 C 79 18 149/86 H Pulse Ox 06/05/20 18:46 06/05/20 18:44 06/05/20 18:33 06/05/20 18:29 99 06/05/20 18:25 06/05/20 18:06 99 06/05/20 17:30 06/05/20 17:01 06/05/20 17:00 06/05/20 16:31 06/05/20 16:30 06/05/20 16:04 06/05/20 16:03 06/05/20 16:00 06/05/20 15:30 100 06/05/20 15:23 97 06/05/20 14:17 98 06/05/20 14:15 98 Coding Level of Care Code Critical Care 1st 30-74 mins Diagnoses Admitted to intensive care unit Z78.9 Hypertensive emergency I16.1 Hypertensive encephalopathy I67.4 Seizure-like activity R56.9 Facial droop R29.810 LUE weakness R29.898 Hypomagnesemia E83.42 Unspecified convulsions R56.9 Convulsion type: unspecified Cardiomyopathy I42.9 Type 2 diabetes mellitus E11.9 HLD (hyperlipidemia) E78.5 HTN (hypertension) I10 Time Spent (min) 45 (1) Unspecified convulsions Convulsion type: unspecified Qualified Code(s): R56.9 - Unspecified convulsions
[2020-06-05] MEDS ORDERED: levETIRAcetam 1,000 MG in 0.9 % SODIUM CHLORIDE 100 ML IV SCH (21:00)
[2020-06-05] MEDS ORDERED: DEXTROSE 50% 50 ML SYRINGE IV PRN (21:08)
[2020-06-05] MEDS ORDERED: GLUCAGON FOR INJ 1 MG VIAL SQ PRN (21:08)
[2020-06-05] MEDS ORDERED: CARBOHYDRATES FOR HYPOGLYCEMIA PO PRN (21:08)
[2020-06-05] MEDS ORDERED: GLUCOSE 10 TABS/TUBE PO PRN (21:08)
[2020-06-05] MEDS ORDERED: ICU PROTOCOL FOR HYPERGLYCEMIA PRN (21:08)
[2020-06-05] MEDS ORDERED: GLUCOSE 40% GEL 15 GM TUBE PO PRN (21:08)
[2020-06-05] MEDS ORDERED: OPTIRAY 320 125ml IV ONE (22:59)
[2020-06-06] MEDS ORDERED: LORazepam 1 MG/2 ML VIAL IV STA (01:38)
--- NOTE | 2020-06-06 01:45 | Communication Note ---
Date of Service: June 06, 2020 0130: Called by nursing staff regarding breakthrough seizure activity. I did report immediately at bedside. It was reported to me that the patient remained on the nicardipine drip with pressures in the 120s actually. Despite aggressive blood pressure control, the patient had breakthrough seizure activity with LEFT- sided gaze as well as with LEFT-sided dominant convulsing noted. At this point, orders were placed for IV Ativan administration. I did contact [facility] and spoke with critical care team as well as neurology. They rec ommend loading the patient with a 60 mg/kg bolus or 2.5 to 3 g of IV Keppra. I elected to treat the patient with 2.5 g of IV Keppra. He received additional 2 mg of IV Ativan for a return of seizure while I was on the phone with transfer center. Ativan did seem to richy overt seizure activity, however the patient did appear to still have LEFT-sided gaze. Emergency medicine colleagues were contacted and present at the bedside to administer anesthesia. The patient received etomidate and succinylcholine. I did successfully intubate the patient on first pass. Please see separate note. Patient was started on Versed drip per [facility] neurology preference. Patient accepted in transfer to [facility]. Awaiting to hear from [facility] regarding transfer. I have personally spent 45 minutes of critical care time in the direct management of this patient. This is a life/limb threatening event. This includes time spent evaluating patient, direct bedside care, chart review, placing orders, interpretation of diagnostic studies, discussion with consultants, patient, and family members, as well as other required patient management activities. This time is exclusive of all separately billable procedures, and teaching time and separate from and in addition to any other critical care service time. Coding Level of Care Code Critical Care 1st 30-74 mins Time Spent (min) 45
[2020-06-06] MEDS ORDERED: LORazepam 2 MG/4 ML VIAL IV STA (01:54)
[2020-06-06] MEDS ORDERED: RAPID SEQUENCE INDUCTION BAG ONE ×2 (01:58)
[2020-06-06] MEDS ORDERED: STAT IV Infusion **Titration per Protocol STA (02:00)
[2020-06-06] MEDS ORDERED: MIDAZOLAM BOLUS FROM BAG IV PRN (02:00)
[2020-06-06] MEDS ORDERED: MIDAZOLAM HCL 125 MG/250 ML BAG IV PRN (02:00)
--- NOTE | 2020-06-06 02:16 | Procedure Note ---
Procedure Note Date of Service June 06, 2020 APC: Daniel Gross PA-C. Attending: Dr. Curtis A time-out was completed verifying correct patient, procedure, site, positioning. Patient was evaluated and required intubation for airway protection in the status epilepticus patient requiring escalating doses of benzodiazepine. Sedative agent used: Etomidate Paralysis agent used: Succinylcholine Emergent consent was implied given patients rapidly declining clinical status and need for airway protection. The patient was prepared in the appropriate fashion. Sedation was achieved utilizing Etomidate and Succinylcholine, per Dr. Felipe (Emergency Medicine) administration. The patient was easily ventilated using [id number] to achieve adequate oxygenation. A 7.5 Syriac endotracheal tube was placed using Video Laryngoscope to 27 cm at the lip. The stylette was removed and balloon was inflated with 10mL of air. Appropriate Colorimetric change was appreciated. Bilateral breath sounds were heard without air sounds in the abdomen. Dr. Felipe was present for the entire procedure. Post Intubation Chest X-ray confirms placement without pneumothorax. Patient tolerated the procedure well and there were no immediate complications. Coding CPT Codes Resuscitation - Resuscitation: 70650 Endotracheal Intubation, emergency ([id number]) [facility] [place] ([place]) Resuscitation Resuscitation: 50631 Endotracheal Intubation, emergency
--- NOTE | 2020-06-06 02:26 | Emergency Department Note ---
ED Visit Note Intubation by Critical Care Team Date: 06/06/20. Time: 1:55am Called to room 204 for patient in Status Epilepticus Brief summary: 64 yr old male admitted earlier in day for seizures. Continued seizures with episode severe hypertension. [facility] planning intubation but require sedation of patient. On evaluation patient is confused but breathing on own and moving extremities. Poor dentition no dentures. Unable to get history from patient. Review labs unremarkable from earlier in evening other than bumped Trop. Patient to be flown to [facility] [place] for further management and requires stabilization prior to transfer. Procedural Sedation Indication: Status Epilepticus requiring intubation prior to transfer. Last Ate: Unknown Previous issues with sedation: unknown Snore/Sleep Apnea: unknown Smoker: unknown Emergent: Yes ASA: 3 Dentures: None Time Out: 2:05am Time Recovered: n/a (intubated) Total time: 10min I was unable to obtain consent prior to sedation, nor file pre anesthesia paperwork as patient obtunded and this was emergent procedure. Sedation felt necessary by me and [facility] staff. The patient was on 100% oxygen via NRB prior to the procedure. Continuos end tidal CO2 monitoring, pulse oximetry, and cardiac monitoring were utilized. Suction, airway equipment, medications, respiratory equipment, and appropriate personnel were prepared prior to the initiation of the procedure. A time out was taken. Sedation was achieved utilizing 25mg Etomidate and 150mg Succinylcholine. After I observed the patient had reached the appropriate level of sedation the main procedure was performed without complication. Sedation was continued with Fentanyl/Versed as BP starting to trend and the monitoring continued. Patient was signed over to [facility] staff for continued management. Gómez Felipe MD : Unspecified convulsions Qualifiers: Convulsion type: unspecified Qualified Code(s): R56.9 - Unspecified convulsions
[2020-06-06] MEDS ORDERED: ETOMIDATE 2 MG/ML 20 ML VIAL IV ONE (02:49)
[2020-06-06] MEDS ORDERED: SUCCINYLCHOLINE CHLORIDE 20 MG/ML 10 ML VIAL IV ONE (02:49)
[2020-06-06] MEDS ORDERED: LORazepam 2 MG/ML VIAL IV ONE (02:49)
[2020-06-06] MEDS ORDERED: fentaNYL citrate 100 MCG/2 ML VIAL IV ONE (02:49)
[2020-06-06] MEDS ORDERED: MIDAZOLAM HCL 5 MG/ML VIAL IV ONE (02:49)
--- NOTE | 2020-06-06 07:26 | CT Scan Report ---
HEAD & NECK CTA HISTORY: Left upper extremity weakness/facial droop, h/o aneurysmal clipping TECHNIQUE: Multiaxial CT images of the head were performed following the intravenous administration o f contrast to evaluate the major cerebral vessels. Multiaxial CT images of the neck were also perform ed following the intravenous administration of contrast to evaluate the major cervical vessels. Maxim um intensity projection images were also obtained. A dose lowering technique was utilized adhering to the principles of ALARA. COMPARISON: None. FINDINGS: A right frontal ventriculostomy catheter terminates in the left lateral ventricle. Evidence for coil embolization at the mid to distal ACAs. Encephalomalacia within the right frontal and temporal lobes are again noted. Prior right-sided craniotomy. Extensive periodontal disease is noted. Visualized int racranial internal carotid arteries, distal vertebral arteries, and basilar artery are widely patent. There is no significant stenosis, occlusion, or aneurysm seen within the bilateral ACAs, MCAs, or PC As. The aortic arch and proximal great vessels are widely patent. There is no significant stenosis, occ lusion, or dissection identified within the bilateral common carotid, internal carotid, or vertebral arteries. A few left-sided thyroid nodules with the largest measuring 1.1 cm. Transabdominal made of a fenestrated/bifurcated distal left vertebral artery at the C1/C2 level. IMPRESSION: 1. No significant stenosis, occlusion, or aneurysm within the [place]. 2. No significant stenosis, occlusion, or dissection identified within the carotid or vertebral arter ies.. 3. Evidence for cortical embolization at the mid to distal ACAs. 4. Chronic and postoperative changes within the brain as described above. ACT 112: Negative or not required by law. Electronically signed by: Raghu Rodas M.D. 06/06/2020 7:25 AM
--- NOTE | 2020-06-06 08:21 | XRay Report ---
XR chest 1V portable HISTORY: intubation COMPARISON: Chest 05/31/2020. FINDINGS: Endotracheal tube terminates approximately 6.5 cm in the florentino. This could be advanced by approximately 3 cm. Nasogastric tube terminates at the gastroesophageal junction. Right-sided ventric ular peritoneal shunt catheter is again noted. The lungs are clear. The heart remains mildly enlarged . No pneumothorax. No pleural effusions. IMPRESSION: 1. Endotracheal tube terminates approximately 6.5 cm in the florentino. This could be advanced by approxi mately 3 cm. 2. Nasogastric tube terminates at the gastroesophageal junction. This should also be advanced. ACT 112: Negative or not required by law. Electronically signed by: Raghu Roads M.D. 06/06/2020 8:19 AM
--- NOTE | 2020-06-06 10:07 | Electrocardiogram Report ---
Test Reason : Blood Pressure : / mmHG Vent. Rate : 067 BPM Atrial Rate : 067 BPM P-R Int : 196 ms QRS Dur : 110 ms QT Int : 406 ms P-R-T Axes : 042 076 083 degrees QTc Int : 429 ms Normal sinus rhythm Diffuse Nonspecific T wave abnormality Abnormal ECG When compared with ECG of 05-JUN-2020 07:35, T wave inversion now evident in Anterolateral leads Confirmed by Cosme Cat ([id number]) on 06/06/2020 10:06:46 AM Referred By: REFERRED SELF Confirmed By:Cosme Cat
--- NOTE | 2020-06-07 19:44 | Discharge Summary ---
Date of Service June 07, 2020 Admission HPI Per Admitting Provider Faisal Edmond is a 64-year-old male from [facility] current smoker with uncontrolled T2DM and recent diagnosis of seizures due to right frontotemporal encephalomalacia s/p cerebral aneurysm repair and [employer] shunt (in 1975) presents to the ER for the second time today due to ongoing seizure like activity. The patient reports knowing when the seizures are coming on and when he has them, his head turns to the left and arms shake. He reports having multiple seizures after discharge earlier today from the emergency room. Patient is orientated x3. No tongue biting, urine or bowel incontinence. Directly prior to transporting patient to the PCU. He had a witnessed seizure by his ER nurse which she reported was very consistent with a seizure -upper limb shaking, head turned to the left, foaming at the mouth, eyes rolled back. Telemetry was reviewed to assess for arrhythmia during this episode and although artifactual during seizure therapies to be regular QRS complexes there was no significant arrhythmia prior or post seizure activity, other than significantly more tachycardic post seizure. On arrival in PCU I was informed he continued to have seizure-like activity. Two of these were witnessed by myself. The patient became stiff on the left side of his body with increased tone most notable in his left sternocleidomastoid. His left arm also had significant increased tone. There was no jerking movements. He was unresponsive throughout. Eyes open, rolled superiorly. No tongue biting, urine or bowel incontinence. Lasted for approximately 2 minutes. Rapid return to conscious state where he was aware he had a seizure but not that I been talking to him during it. Very consistent with a focal motor tonic seizure +/- sympathetic autonomic with post seizure hypertension and tachycardia. Labetalol 10 mg IV x2 given due to hypertensive encephalopathy. Discussed case with Dr. Bacon - recommended additional 500 mg IV Depakote followed by 500 mg IV 3 times daily in addition to Keppra 1 g IV twice daily, stat EEG, consider lumbar puncture in a.m, unable to perform MRI. Unable to start IV nicardipine or labetalol in PCU. In addition I was unsure where the patient was returning to his baseline state between seizure episodes which were occurring 15 minutes apart. Discussed with Dr Curtis - accepted to ICU and recommended start on nicardipine IV drip. Handed over care to Daniel Ginny, PA-C. After transfer to ICU collateral history obtained from RN Caitlin Don @ [facility]. Seizure activity described as head turning to the left with left arm robe up above his head, alert and orientated during this, post ictal left facial droop and left-sided weakness not resolved since after his first seizure this morning. Confirmed baseline is ambulatory without aids, no focal neurological deficits, left-sided weakness or facial droop. First time he had this left-sided weakness was prior to his admission on May 31. Initial concern was for stroke due to initial complaint of equilibrium off and left- sided weakness prior to his witnessed seizure (unclear if he had a seizure prior to this). Patient remembers briefly falling to the ground but denied any presyncopal symptoms to prior providers. He was admitted and started on Keppra (loaded with 1g IV). Discharged the following day on Keppra 500mg PO BID with neurological deficits. The patient refused Keppra at [facility] on . Compliant with Keppra for the past 2 days although I am unclear if this is witnessed. Only medication he has refused for the last 2 days is aspirin. This morning he had 3 seizures. sBP elevated after these however once more rested SBP in 130s. He received 1g Keppra PO at 6 AM but had an additional seizure therefore was sent to the ER. Witnessed seizure by nurses in the ER this morning, ER physician discussed with Dr. Bacon -> 1g Keppra IV and PO dose increased 500mg -> 1g BID and discharged. No Ativan was given. None of his morning antihypertensives were given prior, during or after ER visit. He returned to the [facility] at [facility] around 9:30 AM. Around 11:30 AM patient had a further 8 seizures 15 minutes apart. Depakote 250mg PO and 2 mg IM Ativan given. 15 minutes later he had another seizure therefore was sent back to the ER. He had no witnessed seizure in the ER until right before transfer to PCU (see above). Patient has a history with noncompliance with medication although reportedly has improved since his NSTEMI in January. Recent refusals of medication: Refused bumex , , Refused coreg Refused keppra (confirmed he took this on and , higher dose given this morning as above) Refused Aspirin Refused aldactone Discharge Data Consultations 06/05/20 16:51 ED Decision to Admit Stat 06/05/20 18:05 Consult Neurology Routine 06/05/20 19:19 Consult Lpn Medical Assistant Stat 06/06/20 01:57 Burn CD for patient Stat Hospital Course (1) Status epilepticus: In short, the patient had been seen in this institution approximately 2 weeks ago with similar seizure-like activity. He did develop breakthrough seizures today and received an extensive amount of anticonvulsant therapies. The patient eventually required the utilization of benzodiazepines. Patient did have several hours without seizure-like activity with adequate control of blood pressure while utilizing nicardipine drip. Eventually, despite appropriate bl ood control management, the patient developed return of seizure-like activity. Patient was treated with an additional dose of Ativan. I did discuss case with supervisor insulation and neurology at [facility]. They did suggest increasing loading dose of Keppra. They accept the patient in transfer to their institution. They do agree with emergent intubation for flight. Patient transferred in stable condition.
== END 2020-06-06 02:50 | disposition short-term general hospital (02) ==
LOC: 2S 14:14 → ED 14:14 → 2S 18:29 → 2E 19:41